=== PATIENT | male | born 1945 | race Caucasian/White ===

== ENCOUNTER 2016-09-20 11:18 | Emergency (ER) | payer BC, MEDICARE ==
--- NOTE | 2016-09-20 11:31 | EDM.PDOC ---
ED HPI GENERAL MEDICAL PROBLEM - General Chief Complaint: General Stated Complaint: AMBULANCE Time Seen by Provider: 09/20/16 11:30 Source of Information: Reports: Patient History Limitations: Reports: No limitations - History of Present Illness INITIAL COMMENTS - FREE TEXT/NARRATIVE: HISTORY AND PHYSICAL: History of present illness: [8-year-old male with embolus with a walker because of hip problems now brought in by EMS for evaluation after a fall. Patient states he was in bleeding with his walker when he lost his balance fell and hit the front of his head on the carpet he has an abrasion. Patient states his tetanus is up-to-date within 5 years. Denies loss of consciousness or neck pain. Patient has no headache currently. Is not on anticoagulants. He has a history of hypothyroidism for which he takes Synthroid and with which she is compliant. Patient denies prodromal symptomatology specifically no dizziness lightheadedness chest pain or shortness of breath. Patient did not get up and EMS was called. Patient brought in by EMS on the [facility] [place] with no c collar in place. He has no specific complaints and denies any recent illness Review of systems: As per history of present illness and below otherwise all systems reviewed and negative. Past medical history: As per history of present illness and as reviewed below otherwise noncontributory. Surgical history: As per history of present illness and as reviewed below otherwise noncontributory. Social history: No reported history of drug or alcohol abuse. Family history: As per history of present illness and as reviewed below otherwise noncontributory. Physical exam: No CT or L-spine tenderness or crepitus. Nontender stable pelvis. No rib tenderness. No right upper quadrant or left upper quadrant tenderness. HEENT: 8 cm x 5 cm abrasion to apical frontal scalp with a small skin flap and placed. normocephalic, pupils reactive, negative for conjunctival pallor or scleral icterus, mucous membranes moist, throat clear, neck supple, nontender, normal painless range of motion and no midline tenderness whatsoever. trachea midline. Lungs: Clear to auscultation, breath sounds equal bilaterally, chest nontender. Heart: S1S2, regular, negative for clicks, rubs, or JVD. Abdomen: Soft, nondistended, nontender. Negative for masses or hepatosplenomegaly. Negative for costovertebral tenderness. Pelvis: Stable nontender. Genitourinary: Deferred. Rectal: Deferred. Extremities: Atraumatic, negative for cords or calf pain. Neurovascular unremarkable. Neuro: Awake, alert, oriented. Cranial nerves II through XII unremarkable. Cerebellum unremarkable. Motor and sensory unremarkable throughout. Exam nonfocal. Diagnostics: [] Therapeutics: [Procedure debridement of skin flap on scalp wound by MORIAH Zhao] patient sitting the vitalized skin debrided with gloved hand by me. Patient tolerated well no complications. hemostatic. As the tracing ointment applied to abrasion. Impression: [] Plan: [Patient status post what sounds likely to have been a mechanical loss of balance and fall. Abrasion for have a tetanus up-to-date. Skin flap which was devitalized was debrided by me see procedure. Antibiotic ointment applied nonfocal neurologic exam well-appearing supple neck. Will check CT of the head to rule out intracranial injury specifically bleeding. EKG with normal sinus rhythm at 89 normal axis no STEMI interpreted by me. Labs and chest x-ray pending to rule out possibility of contributory etiology for fall. if Workup is unremarkable, and the default diagnosis is mechanical fall consistent with the patient's description. He agrees with outpatient followup and strict return precautions will be given hGlobin 9.3. Patient aware. CT of the head unremarkable. Chest x-ray and pelvis x-ray negative for acute process Incidental finding of bony abnormality of right pubic symphysis commented on by radiology discussed this finding with patient. He has been aware of this finding as it was defined as a bone island when imaged on CT of the abdomen and pelvis May 07, 2016. he has not had any history of bony metastases or cancer. Patient is aware to followup with his DrSade for reevaluation and to arrange surveillance imaging of this lesion to rule out lytic lesion or cancer. Definitive disposition and diagnosis as appropriate pending reevaluation and review of above. - Related Data Allergies Allergy/AdvReac Type Severity Reaction Status Date / Time No Known Allergies Allergy Verified 07/17/16 09:32 Home Meds: Home Meds Levothyroxine 75 mcg PO ACBREAKFAST 09/20/16 [History] ED ROS GENERAL - Review of Systems Review Of Systems: See Below (Per history of present illness) ED EXAM, GENERAL - Physical Exam Exam: See Below (Per history of present illness) Course - Vital Signs Last Recorded V/S: Last Vital Signs Temp 36.2 C 09/20/16 11:25 Pulse 84 09/20/16 12:58 Resp 16 09/20/16 12:58 BP 117/62 09/20/16 12:58 Pulse Ox 97 09/20/16 12:58 Orthostatic Blood Pressure [ 118/68 Standing] Orthostatic Blood Pressure [ 101/63 Sitting] Orthostatic Blood Pressure [ 109/61 Supine] - Orders/Labs/Meds Orders: Active Orders 24 hr Category Date Time Status EKG Documentation Completion [RC] STAT Care 09/20/16 11:32 Active Peripheral IV Care [RC] . DIRECTED Care 09/20/16 11:32 Active Chest 1V Frontal [CR] Stat Exams 09/20/16 11:32 Taken Head wo Cont [CT] Stat Exams 09/20/16 11:32 Taken Pelvis 1V or 2V [CR] Stat Exams 09/20/16 11:35 Taken UA W/MICROSCOPIC [URIN] Stat Lab 09/20/16 11:32 Uncollected Sodium Chloride 0.9% [Saline Flush] Med 09/20/16 11:32 Active 10 ml FLUSH ASDIRECTED PRN Sodium Chloride 0.9% [Saline Flush] Med 09/20/16 11:32 Active 10 ml FLUSH ASDIRECTED PRN Sodium Chloride 0.9% [Saline Flush] Med 09/20/16 11:32 Active 2.5 ml FLUSH ASDIRECTED PRN Sodium Chloride 0.9% [Saline Flush] Med 09/20/16 11:32 Active 2.5 ml FLUSH ASDIRECTED PRN Peripheral IV Insertion Adult [OM.PC] Stat Oth 09/20/16 11:32 Ordered Medication Orders Sodium Chloride (Saline Flush) 10 ml FLUSH ASDIRECTED PRN PRN Reason: Keep Vein Open Last Admin: 09/20/16 11:48 Dose: 10 ml Sodium Chloride (Saline Flush) 2.5 ml FLUSH ASDIRECTED PRN PRN Reason: Keep Vein Open Last Admin: 09/20/16 11:48 Dose: 2.5 ml Sodium Chloride (Saline Flush) 10 ml FLUSH ASDIRECTED PRN PRN Reason: Keep Vein Open Last Admin: 09/20/16 11:48 Dose: 10 ml Sodium Chloride (Saline Flush) 2.5 ml FLUSH ASDIRECTED PRN PRN Reason: Keep Vein Open Last Admin: 09/20/16 11:48 Dose: 2.5 ml Labs: Laboratory Tests 09/20/16 09/20/16 09/20/16 Range/Units 11:44 11:44 11:44 WBC 10.11 (4.0-11.0) K/uL RBC 3.35 L (4.50-5.90) M/uL Hgb 9.3 L (13.0-17.0) g/dL Hct 28.7 L (38.0-50.0) % MCV 85.7 (80.0-98.0) fL MCH 27.8 (27.0-32.0) pg MCHC 32.4 (31.0-37.0) g/dL RDW Std Deviation 51.4 (28.0-62.0) fl RDW Coeff of Kristy 16 H (11.0-15.0) % Plt Count 310 (150-400) K/uL MPV 8.60 (7.40-12.00) fL Neut % (Auto) 75.9 (48.0-80.0) % Lymph % (Auto) 11.2 L (16.0-40.0) % Labette % (Auto) 12.6 (0.0-15.0) % Eos % (Auto) 0.1 (0.0-7.0) % Baso % (Auto) 0.2 (0.0-1.5) % Neut # (Auto) 7.7 H (1.4-5.7) K/uL Lymph # (Auto) 1.1 (0.6-2.4) K/uL Labette # (Auto) 1.3 H (0.0-0.8) K/uL Eos # (Auto) 0.0 (0.0-0.7) K/uL Baso # (Auto) 0.0 (0.0-0.1) K/uL Nucleated RBC % 0.0 /100WBC Nucleated RBCs # 0 K/uL Sodium 137 (136-146) mmol/L Potassium 4.3 (3.5-5.1) mmol/L Chloride 106 (98-110) mmol/L Carbon Dioxide 22 (21-31) mmol/L BUN 20 (6.0-23.0) mg/dL Creatinine 0.9 (0.6-1.5) mg/dL Est Cr Clr Drug Dosing 76.37 mL/min Estimated GFR (MDRD) > 60.0 ml/min Glucose 91 (60-110) mg/dL Calcium 8.3 L (8.8-10.8) mg/dL Total Bilirubin 0.6 (0.1-1.5) mg/dL AST 23 (5-40) IU/L ALT 18 (8-54) IU/L Alkaline Phosphatase 95 (40-150) Troponin I < 0.10 (0.0-0.29) NG/ML Total Protein 7.0 (6.0-8.0) g/dL Albumin 2.7 L (3.4-4.8) g/dL Globulin 4.3 H (2.0-3.5) g/dL Albumin/Globulin Ratio 0.6 L (1.3-2.8) Meds: Medications Generic Name Dose Route Start Last Admin Trade Name Freq PRN Reason Stop Dose Admin Sodium Chloride 10 ml 09/20/16 11:32 09/20/16 11:48 Saline Flush FLUSH 10 ml ASDIRECTED PRN Administration Keep Vein Open Sodium Chloride 2.5 ml 09/20/16 11:32 09/20/16 11:48 Saline Flush FLUSH 2.5 ml ASDIRECTED PRN Administration Keep Vein Open Sodium Chloride 10 ml 09/20/16 11:32 09/20/16 11:48 Saline Flush FLUSH 10 ml ASDIRECTED PRN Administration Keep Vein Open Sodium Chloride 2.5 ml 09/20/16 11:32 09/20/16 11:48 Saline Flush FLUSH 2.5 ml ASDIRECTED PRN Administration Keep Vein Open Discontinued Medications Generic Name Dose Route Start Last Admin Trade Name Freq PRN Reason Stop Dose Admin Bacitracin 1 dose 09/20/16 11:47 09/20/16 11:56 Bacitracin Oint 1 Gm TOP 09/20/16 11:48 1 dose ONETIME ONE Administration Sodium Chloride 1,000 mls @ 999 mls/hr 09/20/16 11:32 09/20/16 11:48 Normal Saline IV 09/20/16 12:32 999 mls/hr .Bolus ONE Administration Departure - Departure Time of Disposition: 14:03 Disposition: Home, Self-Care 01 Condition: good Clinical Impression: Scalp abrasion, Minor head injury without loss of consciousness, Anemia, Radiodense bone lesion present on x-ray Forms: ED Department Discharge Additional Instructions: You have suffered a minor head injury today when you fell and hit your head on the carpeted floor. Verify with your DrSade that your tetanus is up-to-date within 5 years. He may apply antibiotic ointment to your for head abrasion to keep it moist for comfort. Your hemoglobin is mildly low at 9.3, and the Remainder of your workup showed no contributory cause for your fall. Followup with your DrSade tomorrow for reevaluation and to discuss the bony abnormality in your right pubic symphysis which was previously imaged by CAT scan on May 07, 2060. Her concern about this bone lesion with the the possibility of a lytic lesion which could breakdown the bone or that it could be an evolving cancer. Discussed this finding with your primary care doctor who can arrange repeat imaging for surveillance of the lesion. Return immediately for new symptoms or concerns. - My Orders Last 24 Hours: My Active Orders 09/20/16 11:32 EKG Documentation Completion [RC] STAT Peripheral IV Care [RC] . DIRECTED Chest 1V Frontal [CR] Stat Head wo Cont [CT] Stat UA W/MICROSCOPIC [URIN] Stat Sodium Chloride 0.9% [Saline Flush] 10 ml FLUSH ASDIRECTED PRN Sodium Chloride 0.9% [Saline Flush] 10 ml FLUSH ASDIRECTED PRN Sodium Chloride 0.9% [Saline Flush] 2.5 ml FLUSH ASDIRECTED PRN Sodium Chloride 0.9% [Saline Flush] 2.5 ml FLUSH ASDIRECTED PRN Peripheral IV Insertion Adult [OM.PC] Stat 09/20/16 11:35 Pelvis 1V or 2V [CR] Stat - Assessment/Plan Last 24 Hours: My Active Orders 09/20/16 11:32 EKG Documentation Completion [RC] STAT Peripheral IV Care [RC] . DIRECTED Chest 1V Frontal [CR] Stat Head wo Cont [CT] Stat UA W/MICROSCOPIC [URIN] Stat Sodium Chloride 0.9% [Saline Flush] 10 ml FLUSH ASDIRECTED PRN Sodium Chloride 0.9% [Saline Flush] 10 ml FLUSH ASDIRECTED PRN Sodium Chloride 0.9% [Saline Flush] 2.5 ml FLUSH ASDIRECTED PRN Sodium Chloride 0.9% [Saline Flush] 2.5 ml FLUSH ASDIRECTED PRN Peripheral IV Insertion Adult [OM.PC] Stat 09/20/16 11:35 Pelvis 1V or 2V [CR] Stat
[2016-09-20] MEDS ORDERED: Sodium Chloride 0.9% 2.5 ML Syringe FLUSH PRN ×2 (11:32)
[2016-09-20] MEDS ORDERED: Sodium Chloride 0.9% 1,000 ML IV ONE (11:32)
[2016-09-20] MEDS ORDERED: Sodium Chloride 0.9% 10 ML Syringe FLUSH PRN ×2 (11:32)
[2016-09-20] MEDS ORDERED: Bacitracin Oint 1 GM U/D Packet TOP ONE (11:47)
[2016-09-20 12:17] LABS: CHLORIDE,CL 106 mmol/L (98-110); SODIUM,NA 137 mmol/L (136-146)
[2016-09-20 15:26] VITALS: BP 126/65
--- NOTE | 2016-09-21 18:42 | CT ---
EXAM DATE: 09/20/16 PATIENT'S AGE: 71 Patient: VICKI KEYES Facility: [place], [place] Site . Site : 1945 Study: CT Head [id number] 12:07:52 PM Ordering Physician: Everton Cummins Final Report: INDICATION : Trauma. TECHNIQUE : Noncontrast CT scan of brain. Please note that all CT scans at this facility use dose modulation, iterative reconstruction and/or weight-based dosing when appropriate to reduce radiation dose to as low as reasonably achievable(ALARA). FINDINGS : Mildly prominent ventricles and sulci. No visualized intracranial intra or extra-axial hemorrhage. No midline shift or intracranial mass. Calvarium is intact. Punctate area of radiodensity, foreign body or calcification superior to the right orbit. Bone window image 25. Atherosclerotic vascular calcifications of the internal carotid arteries. Small mucous retention cyst in the left sphenoid sinus. IMPRESSION : No visualized acute intracranial radiographic abnormality. Mildly prominent sulci suggesting volume loss. Dictated by Hernesto Min MD @ Sep 20 2016 12:22PM (Electronic Signature) Report Signed by Proxy and Original Signed Document filed in the Medical Record. [facility]
--- NOTE | 2016-09-21 18:43 | CR ---
EXAM DATE: 09/20/16 PATIENT'S AGE: 71 Patient: VICKI KEYES Facility: [place], [place] Site . Site : 1945 Study: XRay Chest [id number]/2/[id number] 12:13:50 PM Ordering Physician: Everton Cummins Final Report: CHEST 1 VIEW AP INDICATION: Fall. IMPRESSION: Normal heart size and vascular pattern. Lungs are clear of focal opacities. No pneumothorax or pleural abnormality. Dictated by Hernesto Min MD @ Sep 20 2016 12:16PM (Electronic Signature) Report Signed by Proxy and Original Signed Document filed in the Medical Record. [facility]
--- NOTE | 2016-09-21 18:46 | CR ---
EXAM DATE: 09/20/16 PATIENT'S AGE: 71 Patient: VICKI KEYES Facility: [place], [place] Site . Site : 1945 Study: XRay Pelvis [id number]/2/2017 12:19:57 PM Ordering Physician: Everton Cummins Final Report: Pelvis and bilateral hips. 2 VIEWS INDICATION: Injury. IMPRESSION: No visualized fracture. Alignments anatomic. Symmetric narrowing of both hip joints. Asymmetric sclerosis in the right symphysis. Uncertain significance. Correlate with any history of previous malignancy such as prostate carcinoma to exclude blastic metastasis. Vascular calcifications. No fractures. Dictated by Hernesto Min MD @ Sep 20 2016 12:32PM (Electronic Signature) Report Signed by Proxy and Original Signed Document filed in the Medical Record. [facility]
--- NOTE | 2016-09-21 18:47 | CR ---
EXAM DATE: 09/20/16 PATIENT'S AGE: 71 Patient: VICKI KEYES Facility: [place], [place] Site . Site : 1945 Study: XRay Extremity Left ankle [id number] 2:41:32 PM Ordering Physician: Everton Cummins Final Report: Left ankle 2 VIEWS INDICATION: Pain. No comparisons available. IMPRESSION: Alignments anatomic. Previous hardware fixation distal fibular fracture. Plate and screws are intact. No additional acute fractures. Extensive degeneration narrowing and hypertrophic changes at the tibiotalar joint. Medial swelling. Dictated by Hernesto Min MD @ Sep 20 2016 3:10PM (Electronic Signature) Report Signed by Proxy and Original Signed Document filed in the Medical Record. [facility]
== END 2016-09-20 16:11 | disposition home or self-care (01) ==
LOC: MW.ED 11:18
DX: S00.01XA Abrasion of scalp, initial encounter (principal); S09.90XA Unspecified injury of head, initial encounter; D64.9 Anemia, unspecified; M89.9 Disorder of bone, unspecified; W19.XXXA Unspecified fall, initial encounter
CPT/HCPCS: 70450; 71010; 72170; 73600; 80053; 81001; 84484; 85025; 93005; 96360; 99285; J7040; 99284

== ENCOUNTER → 2016-09-28 | Outpatient (CLI) | payer BC, MEDICARE ==
[2016-09-28 12:53] LABS: CHLORIDE,CL 104 mmol/L (98-110); SODIUM,NA 137 mmol/L (136-146)
== END ==
LOC: MW.CHGS 12:01
PROVIDERS: ATTEND Surgery
DX: D64.9 Anemia, unspecified (principal)
CPT/HCPCS: 36415; 80053; 84443; 85025

== ENCOUNTER → 2016-10-07 | Outpatient (CLI) | payer BC, MEDICARE | END | disposition home or self-care (01) | LOC: MW.CHGS 11:29 | PROVIDERS: ATTEND Surgery | DX: R55 Syncope and collapse (principal) | CPT/HCPCS: 36415; 85610 ==

== ENCOUNTER 2016-10-13 08:20 | Inpatient (IN) | payer BC, MEDICARE ==
[~2016-10-13 08:20] MED LIST: Lactated Ringers 1,000 ML IV SCH; Lidocaine 2% 5 ML SDV ONE; Propofol 200 MG/20 ML SDV ONE; fentaNYL 100 MCG/2 ML SDV ONE
--- NOTE | 2016-10-13 08:53 | PCM.PREANE ---
Preanesthetic Assessment - Anesthesia/Transfusion/Family Hx Anesthesia History: Prior Anesthesia Without Reaction Family History of Anesthesia Reaction: No Transfusion History: No Prior Transfusion(s) - Review of Systems General: No Symptoms Pulmonary: No Symptoms Cardiovascular: No Symptoms Gastrointestinal: No symptoms Neurological: No Symptoms Other: Reports: None - Physical Assessment O2 Sat by Pulse Oximetry: 94 Respiratory Rate: 18 Vital Signs: Last Vital Signs Temp 37.2 C 10/13/16 08:41 Pulse 110 H 10/13/16 08:41 Resp 18 10/13/16 08:41 BP 120/65 10/13/16 08:41 Pulse Ox 94 L 10/13/16 08:41 Height: 1.75 m Weight: 77.111 kg ASA Class: 3 Mental Status: Alert & Oriented x3 Airway Class: Mallampati = 2 Dentition: Reports: Normal Dentition Thyro-Mental Finger Breadths: 3 Mouth Opening Finger Breadths: 2 ROM/Head Extension: Limited/Partial Lungs: Clear to auscultation, Normal respiratory effort Cardiovascular: Regular Rate, Regular Rhythm - Allergies Allergies/Adverse Reactions: Allergies Allergy/AdvReac Type Severity Reaction Status Date / Time Penicillins Allergy Swelling Verified 10/09/16 10:54 - Blood Blood Available: No - Anesthesia Plan Pre-Op Medication Ordered: None - Acknowledgements Anesthesia Type Planned: MAC Pt an Appropriate Candidate for the Planned Anesthesia: Yes Alternatives and Risks of Anesthesia Discussed w Pt/Guardian: Yes Pt/Guardian Understands and Agrees with Anesthesia Plan: Yes PreAnesthesia Questionnaire HEENT History: Reports: Cataract, Hard of hearing Other HEENT History: wears glasses, has hearing aides but does not wear them Cardiovascular History: Reports: Other (see below) (recent ankle swelling) Respiratory History: Reports: Sleep apnea (wears CPAP mask at night) Gastrointestinal History: Reports: None Genitourinary History: Reports: Renal calculus Musculoskeletal History: Reports: Fracture, Osteoarthritis Other Musculoskeletal History: left ankle and right wrist Neurological History: Reports: None Psychiatric History: Reports: Depression Other Psychiatric History: states is depressed over chronic leg pain x2 months Endocrine/Metabolic History: Reports: Hypothyroidism Hematologic History: Reports: Anemia Immunologic History: Reports: None Oncologic (Cancer) History: Reports: None Dermatologic History: Reports: None - Infectious Disease History Infectious Disease History: Reports: None - Past Surgical History Head Surgeries/Procedures: Reports: None HEENT Surgical History: Reports: Cataract surgery, Tonsillectomy Cardiovascular Surgical History: Reports: None Respiratory Surgical History: Reports: None GI Surgical History: Reports: None Male Surgical History: Reports: Lithotripsy (ESWL) Endocrine Surgical History: Reports: None Neurological Surgical History: Reports: None Musculoskeletal Surgical History: Reports: ORIF Other Musculoskeletal Surgeries/Procedures:: left ankle (has plate and screws) Oncologic Surgical History: Reports: None - SUBSTANCE USE Smoking Status *Q: Current Every Day Smoker (<1 ppd) Tobacco Use Within Last Twelve Months: Cigarettes Second Hand Smoke Exposure: No Recreational Drug Use History: No - HOME MEDS Home Medications: Home Meds Hydrocodone/Acetaminophen [Hydrocodon-Acetaminophen 5-325] 1 tab PO QID PRN [History] Levothyroxine Sodium [Synthroid] 150 mcg PO DAILY 10/09/16 [History] - CURRENT (IN HOUSE) MEDS Current Meds: Current Medications Lactated Ringer's (Ringers, Lactated) 1,000 mls @ 125 mls/hr IV ASDIRECTED ANJALI Last Admin: 10/13/16 08:40 Dose: 125 mls/hr Discontinued Medications Fentanyl (Sublimaze) Confirm Administered Dose 100 mcg .ROUTE .STK-MED ONE Stop: 10/13/16 07:18 Lidocaine (Xylocaine-Mpf 2%) Confirm Administered Dose 5 ml .ROUTE .STK-MED ONE Stop: 10/13/16 07:18 Propofol (Diprivan 20 Ml) Confirm Administered Dose 400 mg .ROUTE .STK-MED ONE Stop: 10/13/16 07:18
--- NOTE | 2016-10-13 10:17 | PCM.SN ---
- Free Text/Narrative Note: pt with severe B lower extremity swelling and pitting edema, and possible in and out of atrial fibulation; colonoscopy procedure cancelled. pt would benefit from a visit to his medical provider, and likely a safety advisor visit before elective colonoscopy
[2016-10-13] MEDS ORDERED: Furosemide 40 MG/4 ML VIAL IVPUSH SCH (13:30)
--- NOTE | 2016-10-13 15:25 | PCM.SN ---
- Free Text/Narrative Note: Patient showed up today for planned colonoscopy. Presently he complains of 2 months of leg swelling and pain accompanied with secondary depression and significant fatigue. A month ago he had episode of sincopy falling and injuring himself what brought him to ER . He also had h/o hypothyroidism. Presented with anemia HG 9.3 of unkown origin and tachicardia. EKG revealed atrial tachicardia at 129 bpm. Bnp was 497. Na 132 and hemoglobin dropped to 8.5. On physical exam he has profoud pitting edema up to his groins.We are of opinion that he is in developing CHF and that needs to be seen today by form setter in order to be admitted into hospital for immediate treatment. Dr Simms is contacted and is coming to examine the patient.
--- NOTE | 2016-10-13 15:36 | CONS ---
DATE OF CONSULTATION: DATE OF : 1945 PRIMARY CARE PHYSICIAN: Júnior Contreras MD REASON FOR CONSULTATION: Tachycardia and concern of heart failure. HISTORY OF PRESENT ILLNESS: This is a 71-year-old male with history of the kidney stone as well as a former smoker, history of SARA, hypothyroidism, presented to the hospital at this time for day surgery for a colonoscopy. He was seen by Dr. Delacruz his primary care doctor and he has told Dr. Delacruz that he is still weak for quite some time. It was almost and one and half months and he was told that his anemia has been worsen and he would need a colonoscopy. He had a colonoscopy done in 2012 at that time for the rectal bleed and was found to have a diverticulosis. No polys were removed at that time, and then today prior to colonoscopy, he was found to have a tachycardia with a heart rate of 110 to 120. EKG show possible atrial tachycardia and he also mentioned that he has been swollen for one and half weeks, but no increasing shortness of breath. However, his tightness and weakness remained the same. He denied a history of heart attack, heart stent, heart failure. Never had a stress test in the past. He also denied history of hypertension, hyperlipidemia, and also diabetes. He also knows that he has been swollen for almost one and half week, but he denied history of orthopnea or PND. He was here in the emergency room in September 20 at that time, he is here because of collapsing. He stated that like he got up in the morning when out to exist nine go back home, exercise to do some walking, go back home tried to go down to the basement; however, when he was going to the stairs to the basement, he was falling. He remembers seeing himself going down to the floor, but he was not sure that he was passing out or not. No chest pain. No warning symptoms. No dizziness and he could not get himself up because he has no strength and he called his sister and called 911 later on and he was coming to the emergency room. He did not get kept overnight. FAMILY HISTORY: Mother had a history of glaucoma but no CAD, no heart failure in his family history. SOCIAL HISTORY: He is a current smoker. He does not drink. He is unmarried and has no children. No drugs. MEDICATION: He is currently only taking levothyroxine 137 mcg daily. PHYSICAL EXAMINATION: VITAL SIGNS: Blood pressure 120/95, heart rate of 110 and 120, O2 saturation 94, respiration 18, temperature 37.0. HEENT: Mild pale. No jaundice. JVD is positive. HEART: Tachycardia. Regular rate and rhythm. No murmur. LUNGS: Bilateral crackles with minimal expiratory wheezing. ABDOMEN: Soft, nontender. Bowel sounds are present. No hepatosplenomegaly. No rebound tenderness. EXTREMITIES: Legs, no edema. RADIOLOGIC INVESTIGATION: BNP was 497. EKG September 20, 2016 did show a sinus rhythm, heart rate of 89, KS interval 171, QRS duration 83, QTc interval 467. An EKG on October 13, 2016 show atrial tachycardia with a heart rate of 129, KS interval 134, QRS duration 89. ASSESSMENT AND PLAN: This is a 71-year-old male, former smoker, presented with recent anemia with concern of GI bleeding. He presents to the hospital at this time due to peripheral edema as well as atrial tachycardia and congestive heart failure. I believe that I would recommend to keep him in the hospital and I would also treat him with IV diuretics and I would also start him on a medication and that will control his heart rate, but I would wait until tomorrow, and I will also check his echocardiogram cycle, cardiac enzymes, and for his heart failure treatment, he would need diuretics and also the medication regimen depends on his LVEF and he need to be limited for salt intake less than 2 g. He has to be weighed daily and has to be watched vital signs. He need to be on a telemetry bed. STEFFI DAVILA /[id number]
[2016-10-13] MEDS ORDERED: Pantoprazole 80 MG in Sodium Chloride 0.9% 20 ML IV ONE (16:04)
--- NOTE | 2016-10-13 16:11 | PCM.HP ---
H&P History of Present Illness - General Date of Service: 10/13/16 Admit Problem/Dx: Admission Diagnosis/Problem Admission Diagnosis/Problem Tachycardia Source of Information: Patient History Limitations: Reports: No limitations - History of Present Illness Initial Comments - Free Text/Narative: This 71 year old male with pmh of hypothyroidism and recent anemia presented today for colonoscopy with Dr. Price. Prior to procedure EKG noted possible atrial tachycardia. The patient expressed concerns regarding worsening bilateral leg edema. He reports he has had lower back and leg pain which is not getting better other the last couple months. He is voiding ok, reports he was told the back pain is from constipation. He has been taking a laxative daily and having daily bowel movements, but pain is getting worse. He denies N/V abdominal pain or urinary symptoms. He denies dyspnea, chest pain, cough or palpitations. His legs have progressively become more and more swollen and are painful from the edema. He reports he uses [place] for pain, does not take any NSAIDs and does not use alcohol and has not been taking iron for anemia. He noted this morning he had a "plenty black" stool. WBC 10,370, Hgb 8.5 Hct 27.1, BUN 12 Cr 0.7 Na 132. Will obtain ECHO and CXR. Will also obtain hemoccult. He will be admitted due to tachycardia, possible CHF , and anemia. Dr Thrasher consulted regarding CHF and tachycardia. - Related Data Allergies/Adverse Reactions: Allergies Allergy/AdvReac Type Severity Reaction Status Date / Time Penicillins Allergy Swelling Verified 10/09/16 10:54 Home Medications: Home Meds Hydrocodone/Acetaminophen [Hydrocodon-Acetaminophen 5-325] 1 tab PO QID PRN [History] Levothyroxine Sodium [Synthroid] 150 mcg PO DAILY 10/09/16 [History] Acetaminophen [Tylenol] 650 mg PO DAILY PRN 10/13/16 [History] Past Medical History HEENT History: Reports: Cataract, Hard of hearing Other HEENT History: wears glasses, has hearing aides but does not wear them Cardiovascular History: Reports: Other (see below) Respiratory History: Reports: Sleep apnea (uses CPAP at [facility]) Gastrointestinal History: Reports: None Genitourinary History: Reports: Renal calculus Musculoskeletal History: Reports: Fracture, Osteoarthritis Other Musculoskeletal History: left ankle and right wrist Neurological History: Reports: None Psychiatric History: Reports: Depression Other Psychiatric History: states is depressed over chronic leg pain x2 months Endocrine/Metabolic History: Reports: Hypothyroidism Hematologic History: Reports: Anemia Immunologic History: Reports: None Oncologic (Cancer) History: Reports: None Dermatologic History: Reports: None - Infectious Disease History Infectious Disease History: Reports: None - Past Surgical History Head Surgeries/Procedures: Reports: None HEENT Surgical History: Reports: Cataract surgery, Tonsillectomy Cardiovascular Surgical History: Reports: None Respiratory Surgical History: Reports: None GI Surgical History: Reports: None Male Surgical History: Reports: Lithotripsy ([facility]) Endocrine Surgical History: Reports: None Neurological Surgical History: Reports: None Musculoskeletal Surgical History: Reports: ORIF Other Musculoskeletal Surgeries/Procedures:: left ankle (has plate and screws) Oncologic Surgical History: Reports: None Social & Family History - Family History Family Medical History: Noncontributory - Tobacco Use Smoking Status *Q: Current Every Day Smoker Years of Tobacco use: 50 Packs/Tins Daily: 0.5 Second Hand Smoke Exposure: No - Caffeine Use Caffeine Use: Reports: None - Recreational Drug Use Recreational Drug Use: No Drug Use in Last 12 Months: No H&P Review of Systems - Review of Systems: Review Of Systems: See Below General: Denies: fever, chills, malaise, weakness HEENT: Reports: no symptoms. Denies: ear pain, sinus congestion, sore throat, visual changes Pulmonary: Reports: No Symptoms. Denies: Shortness of Breath, Wheezing, Cough, Sputum Cardiovascular: Reports: edema (bilateral lower legs). Denies: chest pain, palpitations Gastrointestinal: Reports: Black stool, Constipation, Diarrhea. Denies: Abdominal pain, Bloody stool, Distension, Nausea, Vomiting Genitourinary: Reports: no symptoms. Denies: dysuria, frequency, burning Musculoskeletal: Reports: no symptoms Skin: Reports: no symptoms Psychiatric: Reports: no symptoms Neurological: Denies: Confusion, Headache, Numbness, Paresthesia Hematologic/Lymphatic: Reports: no symptoms Immunologic: Reports: no symptoms Exam - Exam Exam: See Below - Vital Signs Vital Signs: Last Vital Signs Temp 98.6 F 10/13/16 15:16 Pulse 85 10/13/16 15:16 Resp 16 10/13/16 15:16 BP 120/57 L 10/13/16 15:16 Pulse Ox 91 L 10/13/16 15:16 Weight: 77.111 kg - Exam General: alert, oriented, cooperative HEENT: Conjunctiva clear, Nares patent, Posterior pharynx clear Neck: supple, trachea midline, JVD Lungs: Clear to auscultation, Normal respiratory effort Cardiovascular: regular rate, regular rhythm, normal S1, normal S2, irregular rhythm. No: systolic murmur Abdomen: normal bowel sounds, soft. No: organomegaly, distention, guarding, rebound, tenderness Rectal (Males) Exam: Normal exam, Black stool. No: Hemorrhoids Back Exam: normal inspection, full range of motion, NT Extremities: normal inspection, normal pulses, edema (+ 2 pitting edema bilateral lower ankles and lower legs. does not extend beyond thighs) Skin: warm, dry Neuro Extensive - Mental Status: alert, oriented x3, normal mood/affect Neuro Extensive - Motor, Sensory, Reflexes: CN II-XII intact, normal gait, normal reflexes Psychiatric: alert, normal affect, normal mood - Patient Data Lab Results last 24 hrs: Laboratory Results - last 24 hr 10/13/16 10/13/16 10/13/16 Range/Units 10:55 14:18 14:18 WBC 10.37 (4.0-11.0) K/uL RBC 3.20 L (4.50-5.90) M/uL Hgb 8.5 L (13.0-17.0) g/dL Hct 27.1 L (38.0-50.0) % MCV 84.7 (80.0-98.0) fL MCH 26.6 L (27.0-32.0) pg MCHC 31.4 (31.0-37.0) g/dL RDW Std Deviation 53.1 (28.0-62.0) fl RDW Coeff of Kristy 17 H (11.0-15.0) % Plt Count 357 (150-400) K/uL MPV 8.90 (7.40-12.00) fL Neut % (Auto) 76.2 (48.0-80.0) % Lymph % (Auto) 13.2 L (16.0-40.0) % Baker % (Auto) 10.2 (0.0-15.0) % Eos % (Auto) 0.2 (0.0-7.0) % Baso % (Auto) 0.2 (0.0-1.5) % Neut # (Auto) 7.9 H (1.4-5.7) K/uL Lymph # (Auto) 1.4 (0.6-2.4) K/uL Baker # (Auto) 1.1 H (0.0-0.8) K/uL Eos # (Auto) 0.0 (0.0-0.7) K/uL Baso # (Auto) 0.0 (0.0-0.1) K/uL Nucleated RBC % 0.0 /100WBC Nucleated RBCs # 0 K/uL Sodium 132 L (136-146) mmol/L Potassium 3.8 (3.5-5.1) mmol/L Chloride 98 (98-110) mmol/L Carbon Dioxide 25 (21-31) mmol/L BUN 12 (6.0-23.0) mg/dL Creatinine 0.7 (0.6-1.5) mg/dL Est Cr Clr Drug Dosing 98.19 mL/min Estimated GFR (MDRD) > 60.0 ml/min Glucose 104 (60-110) mg/dL Calcium 8.1 L (8.8-10.8) mg/dL Troponin I (0.0-0.29) NG/ML B-Natriuretic Peptide 497 H (<100) PG/ML 10/13/16 Range/Units 14:18 WBC (4.0-11.0) K/uL RBC (4.50-5.90) M/uL Hgb (13.0-17.0) g/dL Hct (38.0-50.0) % MCV (80.0-98.0) fL MCH (27.0-32.0) pg MCHC (31.0-37.0) g/dL RDW Std Deviation (28.0-62.0) fl RDW Coeff of Kristy (11.0-15.0) % Plt Count (150-400) K/uL MPV (7.40-12.00) fL Neut % (Auto) (48.0-80.0) % Lymph % (Auto) (16.0-40.0) % Baker % (Auto) (0.0-15.0) % Eos % (Auto) (0.0-7.0) % Baso % (Auto) (0.0-1.5) % Neut # (Auto) (1.4-5.7) K/uL Lymph # (Auto) (0.6-2.4) K/uL Baker # (Auto) (0.0-0.8) K/uL Eos # (Auto) (0.0-0.7) K/uL Baso # (Auto) (0.0-0.1) K/uL Nucleated RBC % /100WBC Nucleated RBCs # K/uL Sodium (136-146) mmol/L Potassium (3.5-5.1) mmol/L Chloride (98-110) mmol/L Carbon Dioxide (21-31) mmol/L BUN (6.0-23.0) mg/dL Creatinine (0.6-1.5) mg/dL Est Cr Clr Drug Dosing mL/min Estimated GFR (MDRD) ml/min Glucose (60-110) mg/dL Calcium (8.8-10.8) mg/dL Troponin I < 0.10 (0.0-0.29) NG/ML B-Natriuretic Peptide (<100) PG/ML Result Diagrams: 10/13/16 14:18 10/13/16 14:18 *Q Meaningful Use (ADM) - VTE *Q VTE Criteria *Q: VTE Pharmacological Contraindications *Q: Risk of Bleeding - Stroke *Q Stroke Criteria *Q: - AMI *Q AMI Criteria *Q: - Problem List (1) Bilateral lower extremity edema SNOMED Code(s): 601227248 ICD Code: R60.0 - LOCALIZED EDEMA Status: Acute Current Visit: Yes (2) Tachycardia SNOMED Code(s): 0086912 ICD Code: R00.0 - TACHYCARDIA, UNSPECIFIED Status: Acute Current Visit: Yes (3) Hypothyroidism SNOMED Code(s): 90710692 ICD Code: E03.9 - HYPOTHYROIDISM, UNSPECIFIED Status: Chronic Current Visit: Yes Qualifiers: Hypothyroidism type: unspecified Qualified Code(s): E03.9 - Hypothyroidism , unspecified (4) Anemia SNOMED Code(s): 612584524 ICD Code: D64.9 - ANEMIA, UNSPECIFIED Status: Acute Current Visit: No Qualifiers: Anemia type: unspecified type Qualified Code(s): D64.9 - Anemia, unspecified Problem List Initiated/Reviewed/Updated: Yes Orders Last 24hrs: Active Orders 24 hr Category Date Time Status Patient Status [ADT] Routine ADT 10/13/16 15:27 Active Daily Weight [Height and Weight] [RC] DAILY Care 10/13/16 15:29 Active EKG 12 Lead [EKG Documentation Completion] [RC] ROUTINE Care 10/13/16 10:04 Active Hemoccult [Fecal Occult Blood Collection] [RC] Care 10/13/16 15:36 Ordered ASDIRECTED Intake and Output Strict [RC] ASDIRECTED Care 10/13/16 15:29 Active Notify Provider Consults [RC] ASDIRECTED Care 10/13/16 15:17 Active Notify Provider Consults [RC] ASDIRECTED Care 10/13/16 15:39 Ordered Telemetry Monitoring [Cardiac Monitoring] [RC] . Care 10/13/16 15:38 Ordered DIRECTED Consult to Physician [CONS] Routine Cons 10/13/16 15:16 Active Consult to Physician [CONS] Routine Cons 10/13/16 15:38 Ordered Full Liquid Diet [DIET] Diet 10/13/16 Dinner Active Echo Comp wo Cont [US] Routine Exams 10/13/16 15:42 Ordered CMP [COMPREHENSIVE METABOLIC PN,CMP] [CHEM] Routine Lab 10/13/16 15:26 Ordered Hemoccult [OCCULT BLOOD DIAGNOSTIC] [OP] Routine Lab 10/13/16 15:36 Uncollected MAGNESIUM [CHEM] Routine Lab 10/13/16 15:26 Ordered Acetaminophen/HYDROcodone [[place] 325-5 MG] Med 10/13/16 15:53 Ordered 1 tab PO QID PRN Furosemide [Lasix] Med 10/13/16 13:30 Active 40 mg IVPUSH .ONETIME Lactated Ringers [Ringers, Lactated] 1,000 ml Med 10/13/16 05:00 Active IV ASDIRECTED Levothyroxine Med 10/14/16 09:00 Ordered 150 mcg PO DAILY Pantoprazole [ProTONIX IV] 80 mg Med 10/13/16 16:15 Ordered Sodium Chloride 0.9% [Normal Saline] 100 ml IV Q10H Pantoprazole [ProTONIX IV] 80 mg Med 10/13/16 16:04 Ordered Sodium Chloride 0.9% [Normal Saline] 20 ml IV ONETIME Medication Orders Hydrocodone Bitart/Acetaminophen ([place] 325-5 Mg) 1 tab PO QID PRN PRN Reason: Pain Furosemide (Lasix) 40 mg IVPUSH .ONETIME ANJALI Lactated Ringer's (Ringers, Lactated) 1,000 mls @ 125 mls/hr IV ASDIRECTED ANJALI Last Admin: 10/13/16 08:40 Dose: 125 mls/hr Pantoprazole Sodium 80 mg/ (Sodium Chloride) 100 mls @ 10 mls/hr IV Q10H ANJALI Pantoprazole Sodium 80 mg/ (Sodium Chloride) 20 mls @ 80 mls/hr IV ONETIME ONE Stop: 10/13/16 16:18 Levothyroxine Sodium (Levothyroxine) 150 mcg PO DAILY ANJALI Assessment/Plan Comment:: This 71 year old male admitted with bilateral lower leg edema, anemia and tachycardia 1. Bilateral lower leg edema: Given Lasix 40 mg IV this afternoon, has had 1, 000 ml out since. Will add another dose this evening and monitor output cosely. Daily weights. Will obtain ECHO. No hx of CHF. Monitor on telemetry. 2. Tachycardia: No longer tachycardic. Monitor on telemetry, Obtain serial troponins. Hold on starting medications until diuresed more per Dr Edwards. 3. Anemia: normochromic anemia. reports having black stool this am. Will start Protonix gtt, obtain hemoccult. Will obtain iron studies and peripheral smear. 4. Hypothyroid: Will check TSH. if ok will resume Levothyroxine 5. Hyponatremia: Maybe secondary to potential CHF, monitor. VTE: SCDs only due to GI bleed Dispo: 2-3 days pending improvement
[2016-10-13] MEDS: Acetaminophen/HYDROcodone 325-5 MG Tab PO PRN (16:16)
[2016-10-13 16:48] LABS: CHLORIDE,CL 98 mmol/L (98-110); SODIUM,NA 132 mmol/L (136-146)
[2016-10-13] MEDS: Pantoprazole 80 MG in Sodium Chloride 0.9% 100 ML IV SCH (17:00)
[2016-10-13] MEDS ORDERED: Magnesium Sulfate/Water 2 GM in Premix Bag 1 BAG IV ONE (18:26)
[2016-10-13] MEDS ORDERED: Furosemide 40 MG/4 ML VIAL IVPUSH ONE (20:00)
[2016-10-14] MEDS: Acetaminophen 325 MG Tab PO PRN ×2 (00:12→12:32)
[2016-10-14] MEDS: Pantoprazole 80 MG in Sodium Chloride 0.9% 100 ML IV SCH ×3 (03:37→23:37)
[2016-10-14 05:43] LABS: CHLORIDE,CL 96 mmol/L (98-110); SODIUM,NA 131 mmol/L (136-146)
[2016-10-14] MEDS: Levothyroxine 150 MCG Tab PO SCH (06:57)
[2016-10-14] MEDS ORDERED: Magnesium Sulfate/Water 2 GM in Premix Bag 1 BAG IV ONE (07:49)
[2016-10-14] MEDS ORDERED: Azithromycin 250 MG Tab PO ONE (07:56)
[2016-10-14] MEDS ORDERED: Potassium Chloride 20 MEQ Tab.ER PO SCH (08:00)
--- NOTE | 2016-10-14 08:07 | PCM.PN ---
- General Info Date of Service: 10/14/16 Admission Dx/Problem (Free Text): Admission Diagnosis/Problem Admission Diagnosis/Problem Tachycardia Subjective Update: Reports he is doing well. No chest pain or SOB. Having continued low back/ sacral pain. Lower leg edema has improved. No palpitations. No further black stools. Functional Status: Reports: pain controlled, tolerating diet, ambulating, urinating - Review of Systems General: Reports: No Symptoms. Denies: Fever, Weakness HEENT: Reports: no symptoms. Denies: ear pain, sore throat, visual changes Pulmonary: Denies: shortness of breath, cough, sputum Cardiovascular: Reports: Dyspnea on Exertion, Edema. Denies: Chest Pain, Orthopnea Gastrointestinal: Reports: No symptoms. Denies: Abdominal pain, Nausea, Vomiting Genitourinary: Reports: no symptoms. Denies: dysuria, frequency, burning Musculoskeletal: Reports: back pain (low back pain) Skin: Reports: no symptoms Neurological: Reports: No Symptoms Psychiatric: Reports: no symptoms - Patient Data Vitals - most recent: Last Vital Signs Temp 98.6 F 10/14/16 08:01 Pulse 97 10/14/16 08:01 Resp 17 10/14/16 08:01 BP 110/55 L 10/14/16 08:01 Pulse Ox 96 10/14/16 08:01 Weight - most recent: 77.111 kg I&O - last 24 hours: Intake & Output 10/13/16 10/14/16 10/14/16 22:59 06:59 14:59 Intake Total 500 1250 Output Total 1350 3175 Balance -850 -1925 Lab Results last 24 hrs: Laboratory Results - last 24 hr 10/13/16 10/13/16 10/13/16 Range/Units 10:55 10:55 10:55 WBC (4.0-11.0) K/uL RBC 2.94 L (4.50-5.90) M/uL Hgb (13.0-17.0) g/dL Hct (38.0-50.0) % MCV (80.0-98.0) fL MCH (27.0-32.0) pg MCHC (31.0-37.0) g/dL RDW Std Deviation (28.0-62.0) fl RDW Coeff of Kristy (11.0-15.0) % Plt Count (150-400) K/uL MPV (7.40-12.00) fL Neut % (Auto) (48.0-80.0) % Lymph % (Auto) (16.0-40.0) % [place] % (Auto) (0.0-15.0) % Eos % (Auto) (0.0-7.0) % Baso % (Auto) (0.0-1.5) % Neut # (Auto) (1.4-5.7) K/uL Lymph # (Auto) (0.6-2.4) K/uL [place] # (Auto) (0.0-0.8) K/uL Eos # (Auto) (0.0-0.7) K/uL Baso # (Auto) (0.0-0.1) K/uL Nucleated RBC % /100WBC Nucleated RBCs # K/uL Smear Path Review SENT TO PATHOLOGY Absolute Retic 91.10 H (20-80) K/uL Percent Retic 3.1 H (0.5-1.5) % Immature Retic Fraction 21 % Sodium Potassium Chloride Carbon Dioxide BUN Creatinine Est Cr Clr Drug Dosing Estimated GFR (MDRD) Glucose Calcium Magnesium (1.5-2.3) mEq/L Iron (50-170) ug/dL TIBC (273-456) ug/dL % Saturation (20-55) % Transferrin (200-400) ug/dL Total Bilirubin (0.1-1.5) mg/dL AST (5-40) IU/L ALT (8-54) IU/L Alkaline Phosphatase (40-150) Troponin I (0.0-0.29) NG/ML B-Natriuretic Peptide 497 H (<100) PG/ML Total Protein (6.0-8.0) g/dL Albumin (3.4-4.8) g/dL Globulin (2.0-3.5) g/dL Albumin/Globulin Ratio (1.3-2.8) Vitamin B12 (200-1100) PG/ML Folate (7.2-15.4) ng/mL TSH 3rd Generation (0.47-5.0) uIU/mL 10/13/16 10/13/16 10/13/16 Range/Units 14:15 14:15 14:18 WBC 10.37 (4.0-11.0) K/uL RBC 3.20 L (4.50-5.90) M/uL Hgb 8.5 L (13.0-17.0) g/dL Hct 27.1 L (38.0-50.0) % MCV 84.7 (80.0-98.0) fL MCH 26.6 L (27.0-32.0) pg MCHC 31.4 (31.0-37.0) g/dL RDW Std Deviation 53.1 (28.0-62.0) fl RDW Coeff of Kristy 17 H (11.0-15.0) % Plt Count 357 (150-400) K/uL MPV 8.90 (7.40-12.00) fL Neut % (Auto) 76.2 (48.0-80.0) % Lymph % (Auto) 13.2 L (16.0-40.0) % [place] % (Auto) 10.2 (0.0-15.0) % Eos % (Auto) 0.2 (0.0-7.0) % Baso % (Auto) 0.2 (0.0-1.5) % Neut # (Auto) 7.9 H (1.4-5.7) K/uL Lymph # (Auto) 1.4 (0.6-2.4) K/uL [place] # (Auto) 1.1 H (0.0-0.8) K/uL Eos # (Auto) 0.0 (0.0-0.7) K/uL Baso # (Auto) 0.0 (0.0-0.1) K/uL Nucleated RBC % 0.0 /100WBC Nucleated RBCs # 0 K/uL Smear Path Review Absolute Retic (20-80) K/uL Percent Retic (0.5-1.5) % Immature Retic Fraction % Sodium Potassium Chloride Carbon Dioxide BUN Creatinine Est Cr Clr Drug Dosing Estimated GFR (MDRD) Glucose Calcium Magnesium (1.5-2.3) mEq/L Iron 12 L (50-170) ug/dL TIBC 192 L (273-456) ug/dL % Saturation 6.25 L (20-55) % Transferrin 134 L (200-400) ug/dL Total Bilirubin (0.1-1.5) mg/dL AST (5-40) IU/L ALT (8-54) IU/L Alkaline Phosphatase (40-150) Troponin I (0.0-0.29) NG/ML B-Natriuretic Peptide (<100) PG/ML Total Protein (6.0-8.0) g/dL Albumin (3.4-4.8) g/dL Globulin (2.0-3.5) g/dL Albumin/Globulin Ratio (1.3-2.8) Vitamin B12 1564 H (200-1100) PG/ML Folate 14.5 (7.2-15.4) ng/mL TSH 3rd Generation 5.55 H (0.47-5.0) uIU/mL 10/13/16 10/13/16 10/13/16 Range/Units 14:18 14:18 14:18 WBC (4.0-11.0) K/uL RBC (4.50-5.90) M/uL Hgb (13.0-17.0) g/dL Hct (38.0-50.0) % MCV (80.0-98.0) fL MCH (27.0-32.0) pg MCHC (31.0-37.0) g/dL RDW Std Deviation (28.0-62.0) fl RDW Coeff of Kristy (11.0-15.0) % Plt Count (150-400) K/uL MPV (7.40-12.00) fL Neut % (Auto) (48.0-80.0) % Lymph % (Auto) (16.0-40.0) % [place] % (Auto) (0.0-15.0) % Eos % (Auto) (0.0-7.0) % Baso % (Auto) (0.0-1.5) % Neut # (Auto) (1.4-5.7) K/uL Lymph # (Auto) (0.6-2.4) K/uL [place] # (Auto) (0.0-0.8) K/uL Eos # (Auto) (0.0-0.7) K/uL Baso # (Auto) (0.0-0.1) K/uL Nucleated RBC % /100WBC Nucleated RBCs # K/uL Smear Path Review Absolute Retic (20-80) K/uL Percent Retic (0.5-1.5) % Immature Retic Fraction % Sodium Cancelled 132 L Potassium Cancelled 3.8 Chloride Cancelled 98 Carbon Dioxide Cancelled 25 BUN Cancelled 12 Creatinine Cancelled 0.7 Est Cr Clr Drug Dosing Cancelled 98.19 Estimated GFR (MDRD) Cancelled > 60.0 Glucose Cancelled 104 Calcium Cancelled 8.1 L Magnesium 1.5 (1.5-2.3) mEq/L Iron (50-170) ug/dL TIBC (273-456) ug/dL % Saturation (20-55) % Transferrin (200-400) ug/dL Total Bilirubin 0.7 (0.1-1.5) mg/dL AST 23 (5-40) IU/L ALT 21 (8-54) IU/L Alkaline Phosphatase 106 (40-150) Troponin I < 0.10 (0.0-0.29) NG/ML B-Natriuretic Peptide (<100) PG/ML Total Protein 6.8 (6.0-8.0) g/dL Albumin 2.8 L (3.4-4.8) g/dL Globulin 4.0 H (2.0-3.5) g/dL Albumin/Globulin Ratio 0.7 L (1.3-2.8) Vitamin B12 (200-1100) PG/ML Folate (7.2-15.4) ng/mL TSH 3rd Generation (0.47-5.0) uIU/mL 10/13/16 10/14/16 10/14/16 Range/Units 19:44 02:02 05:14 WBC 9.92 (4.0-11.0) K/uL RBC 2.89 L (4.50-5.90) M/uL Hgb 7.9 L (13.0-17.0) g/dL Hct 24.3 L (38.0-50.0) % MCV 84.1 (80.0-98.0) fL MCH 27.3 (27.0-32.0) pg MCHC 32.5 (31.0-37.0) g/dL RDW Std Deviation 52.2 (28.0-62.0) fl RDW Coeff of Kristy 17 H (11.0-15.0) % Plt Count 344 (150-400) K/uL MPV 8.70 (7.40-12.00) fL Neut % (Auto) 77.8 (48.0-80.0) % Lymph % (Auto) 14.2 L (16.0-40.0) % [place] % (Auto) 7.7 (0.0-15.0) % Eos % (Auto) 0.2 (0.0-7.0) % Baso % (Auto) 0.1 (0.0-1.5) % Neut # (Auto) 7.7 H (1.4-5.7) K/uL Lymph # (Auto) 1.4 (0.6-2.4) K/uL [place] # (Auto) 0.8 (0.0-0.8) K/uL Eos # (Auto) 0.0 (0.0-0.7) K/uL Baso # (Auto) 0.0 (0.0-0.1) K/uL Nucleated RBC % 0.0 /100WBC Nucleated RBCs # 0 K/uL Smear Path Review Absolute Retic (20-80) K/uL Percent Retic (0.5-1.5) % Immature Retic Fraction % Sodium Potassium Chloride Carbon Dioxide BUN Creatinine Est Cr Clr Drug Dosing Estimated GFR (MDRD) Glucose Calcium Magnesium (1.5-2.3) mEq/L Iron (50-170) ug/dL TIBC (273-456) ug/dL % Saturation (20-55) % Transferrin (200-400) ug/dL Total Bilirubin (0.1-1.5) mg/dL AST (5-40) IU/L ALT (8-54) IU/L Alkaline Phosphatase (40-150) Troponin I < 0.10 < 0.10 (0.0-0.29) NG/ML B-Natriuretic Peptide (<100) PG/ML Total Protein (6.0-8.0) g/dL Albumin (3.4-4.8) g/dL Globulin (2.0-3.5) g/dL Albumin/Globulin Ratio (1.3-2.8) Vitamin B12 (200-1100) PG/ML Folate (7.2-15.4) ng/mL TSH 3rd Generation (0.47-5.0) uIU/mL 04/26/17 Range/Units 05:14 WBC (4.0-11.0) K/uL RBC (4.50-5.90) M/uL Hgb (13.0-17.0) g/dL Hct (38.0-50.0) % MCV (80.0-98.0) fL MCH (27.0-32.0) pg MCHC (31.0-37.0) g/dL RDW Std Deviation (28.0-62.0) fl RDW Coeff of Kristy (11.0-15.0) % Plt Count (150-400) K/uL MPV (7.40-12.00) fL Neut % (Auto) (48.0-80.0) % Lymph % (Auto) (16.0-40.0) % [place] % (Auto) (0.0-15.0) % Eos % (Auto) (0.0-7.0) % Baso % (Auto) (0.0-1.5) % Neut # (Auto) (1.4-5.7) K/uL Lymph # (Auto) (0.6-2.4) K/uL [place] # (Auto) (0.0-0.8) K/uL Eos # (Auto) (0.0-0.7) K/uL Baso # (Auto) (0.0-0.1) K/uL Nucleated RBC % /100WBC Nucleated RBCs # K/uL Smear Path Review Absolute Retic (20-80) K/uL Percent Retic (0.5-1.5) % Immature Retic Fraction % Sodium 131 L Potassium 3.3 L Chloride 96 L Carbon Dioxide 26 BUN 9 Creatinine 0.8 Est Cr Clr Drug Dosing 85.92 Estimated GFR (MDRD) > 60.0 Glucose 111 H Calcium 7.8 L Magnesium 1.7 (1.5-2.3) mEq/L Iron (50-170) ug/dL TIBC (273-456) ug/dL % Saturation (20-55) % Transferrin (200-400) ug/dL Total Bilirubin (0.1-1.5) mg/dL AST (5-40) IU/L ALT (8-54) IU/L Alkaline Phosphatase (40-150) Troponin I (0.0-0.29) NG/ML B-Natriuretic Peptide (<100) PG/ML Total Protein (6.0-8.0) g/dL Albumin (3.4-4.8) g/dL Globulin (2.0-3.5) g/dL Albumin/Globulin Ratio (1.3-2.8) Vitamin B12 (200-1100) PG/ML Folate (7.2-15.4) ng/mL TSH 3rd Generation (0.47-5.0) uIU/mL Med Orders - Current: Current Medications Acetaminophen (Tylenol) 650 mg PO Q6H PRN PRN Reason: Fever Last Admin: 10/14/16 00:12 Dose: 650 mg Hydrocodone Bitart/Acetaminophen ([place] 325-5 Mg) 1 tab PO QID PRN PRN Reason: Pain Last Admin: 10/13/16 16:16 Dose: 1 tab Azithromycin (Zithromax) 250 mg PO Q24H ANJALI Furosemide (Lasix) 40 mg IVPUSH .ONETIME ANJALI Pantoprazole Sodium 80 mg/ (Sodium Chloride) 100 mls @ 10 mls/hr IV Q10H ANJALI Last Admin: 10/14/16 03:37 Dose: 10 mls/hr Magnesium Sulfate 2 gm/ Premix 50 mls @ 50 mls/hr IV ONETIME ONE Stop: 10/14/16 08:48 Levothyroxine Sodium (Levothyroxine) 150 mcg PO ACBREAKFAST ANJALI Last Admin: 10/14/16 06:57 Dose: 150 mcg Potassium Chloride (Klor-Con M20) 40 meq PO BIDMEALS [facility] Discontinued Medications Azithromycin (Zithromax) 500 mg PO Q24H ONE Stop: 10/14/16 07:57 Fentanyl (Sublimaze) Confirm Administered Dose 100 mcg .ROUTE .STK-MED ONE Stop: 10/13/16 07:18 Furosemide (Lasix) 40 mg IVPUSH NOW ONE Stop: 10/13/16 20:01 Last Admin: 10/13/16 20:28 Dose: 40 mg Lactated Ringer's (Ringers, Lactated) 1,000 mls @ 125 mls/hr IV ASDIRECTED ANJALI Last Admin: 10/13/16 08:40 Dose: 125 mls/hr Pantoprazole Sodium 80 mg/ (Sodium Chloride) 20 mls @ 80 mls/hr IV ONETIME ONE Stop: 10/13/16 16:18 Last Admin: 10/13/16 17:00 Dose: 80 mls/hr Magnesium Sulfate 2 gm/ Premix 50 mls @ 50 mls/hr IV ONETIME ONE Stop: 10/13/16 19:25 Last Infusion: 10/13/16 20:27 Dose: Infused Lidocaine (Xylocaine-Mpf 2%) Confirm Administered Dose 5 ml .ROUTE .STK-MED ONE Stop: 10/13/16 07:18 Propofol (Diprivan 20 Ml) Confirm Administered Dose 400 mg .ROUTE .STK-MED ONE Stop: 10/13/16 07:18 - Exam General: alert, oriented, cooperative Neck: supple, JVD Lungs: Rhonchi (L base). No: Wheezing Cardiovascular: Regular Rate, Regular Rhythm, No Murmurs. No: Irregular Rhythm , Tachycardia Abdomen: bowel sounds present, soft, no tenderness, no distension Extremities: normal pulses, edema (+2 pitting edema BLE, improved since yesterday) Psy/Mental Status: alert, normal affect, normal mood - Problem List & Annotations (1) Bilateral lower extremity edema SNOMED Code(s): 186744165 Code(s): R60.0 - LOCALIZED EDEMA Status: Acute Current Visit: Yes (2) Tachycardia SNOMED Code(s): 6089744 Code(s): R00.0 - TACHYCARDIA, UNSPECIFIED Status: Acute Current Visit: Yes (3) Hypothyroidism SNOMED Code(s): 84776000 Code(s): E03.9 - HYPOTHYROIDISM, UNSPECIFIED Status: Chronic Current Visit: Yes Qualifiers: Hypothyroidism type: unspecified Qualified Code(s): E03.9 - Hypothyroidism , unspecified (4) Anemia SNOMED Code(s): 536541036 Code(s): D64.9 - ANEMIA, UNSPECIFIED Status: Acute Current Visit: No Qualifiers: Anemia type: unspecified type Qualified Code(s): D64.9 - Anemia, unspecified - Problem List Review Problem List Initiated/Reviewed/Updated: Yes - My Orders Last 24 Hours: My Active Orders 10/13/16 14:15 FERRITIN [REF] Routine 10/13/16 15:36 Hemoccult [Fecal Occult Blood Collection] [RC] ASDIRECTED Hemoccult [OCCULT BLOOD DIAGNOSTIC] [OP] Routine 10/13/16 15:38 Telemetry Monitoring [Cardiac Monitoring] [RC] . DIRECTED Consult to Physician [CONS] Routine 10/13/16 15:39 Notify Provider Consults [RC] ASDIRECTED 10/13/16 15:42 Echo Comp wo Cont [US] Routine 10/13/16 15:53 Acetaminophen/HYDROcodone [[place] 325-5 MG] 1 tab PO QID PRN 10/13/16 16:09 Chest 2V [CR] Routine 10/13/16 16:15 Pantoprazole [ProTONIX IV] 80 mg Sodium Chloride 0.9% [Normal Saline] 100 ml IV Q10H 10/13/16 17:03 Resuscitation Status Routine 10/14/16 07:30 Levothyroxine 150 mcg PO ACBREAKFAST 10/14/16 07:49 Magnesium Sulfate/Water [Magnesium Sulfate 2 GM in Water 50 ML] 2 gm Premix Bag 1 bag IV ONETIME 10/14/16 07:50 RED BLOOD CELLS LP [BBK] Routine TYPE AND SCREEN [BBK] Routine 10/14/16 07:54 IS (RT) [RT Incentive Spirometry] [RC] ASDIRECTED 10/14/16 08:00 Potassium Chloride [Klor-Con M20] 40 meq PO BIDMEALS 10/14/16 Breakfast Low Sodium [Sodium Restricted Diet] [DIET] 10/15/16 05:00 BASIC METABOLIC PANEL,BMP [CHEM] DAILY CBC WITH AUTO DIFF [HEME] DAILY MG [MAGNESIUM] [CHEM] DAILY 10/15/16 08:00 Azithromycin [Zithromax] 250 mg PO Q24H 10/16/16 05:00 BASIC METABOLIC PANEL,BMP [CHEM] DAILY CBC WITH AUTO DIFF [HEME] DAILY MG [MAGNESIUM] [CHEM] DAILY 10/17/16 05:00 BASIC METABOLIC PANEL,BMP [CHEM] DAILY CBC WITH AUTO DIFF [HEME] DAILY MG [MAGNESIUM] [CHEM] DAILY - Plan Plan:: This 71 year old male admitted with bilateral lower leg edema, anemia and tachycardia 1. Bilateral lower leg edema: Will give Lasix 40 mg IV this morning. Add another dose of Lasix this evening after 1 unit of blood transfused. Daily weights. ECHO pending. No hx of CHF. Monitor on telemetry. Dr Thrasher consulted and on case. 2. Tachycardia: No longer tachycardic. Monitor on telemetry, Serial troponins negative. 3. Anemia: normochromic anemia. Hemoccult negative. Continue Protonix gtt. Iron studies show iron deficiency anemia and peripheral smear pending. Hgb 7.9 today, will transfuse 1 unit PRBCs. Will need EGD and colonoscopy as outpatient to evaluate anemia further. 4. Hypothyroid: TSH 5.55, dose was just increased by Dr Contreras. Resume Levothyroxine 5. Hyponatremia: Maybe secondary to potential CHF, monitor. 6. Developing pneumonia/atelectasis: L basilar atelectasis noted on CXR yesterday, no symptoms yesterday, Fever was noted overnight. Will start Azithromycin and Rocephin. Monitor. VTE: SCDs only due to GI bleed Dispo: 2-3 days pending improvement
[2016-10-14] MEDS ORDERED: Furosemide 40 MG/4 ML VIAL IVPUSH ONE ×2 (10:30→16:00)
[2016-10-14] MEDS ORDERED: diphenhydrAMINE 25 MG Cap PO ONE (12:30)
--- NOTE | 2016-10-14 14:57 | PCM.SN ---
- Free Text/Narrative Note: Transfusion stopped due to reaction. Temperature continued to increase to 101.1 F with noteable flushing and tachycardia. Once blood was stopped fever reduced to 99 and tachycardia was resolving. Patient denies chest pain, SOB or palpitations. He denies feeling like his throat is closing. His only complaint was feeling flushed and "burning up". BP 90/55, no dizziness or lightheadedness. Will monitor recheck Hgb this evening.
--- NOTE | 2016-10-14 15:02 | PCM.PN ---
- General Info Date of Service: 10/14/16 Admission Dx/Problem (Free Text): 71M with AT, with CHF - Review of Systems General: Reports: No Symptoms HEENT: Reports: no symptoms Pulmonary: Reports: no symptoms Cardiovascular: Reports: No Symptoms Gastrointestinal: Reports: No symptoms Genitourinary: Reports: no symptoms Musculoskeletal: Reports: no symptoms Skin: Reports: no symptoms - Patient Data Vitals - most recent: Last Vital Signs Temp 36.9 C 10/14/16 14:10 Pulse 109 H 10/14/16 14:10 Resp 18 10/14/16 14:10 BP 90/55 L 10/14/16 14:10 Pulse Ox 93 L 10/14/16 14:10 Weight - most recent: 77.111 kg I&O - last 24 hours: Intake & Output 10/13/16 10/14/16 10/14/16 22:59 06:59 14:59 Intake Total 500 1250 139 Output Total 1350 3175 Balance -850 -1925 139 Lab Results last 24 hrs: Laboratory Results - last 24 hr 10/13/16 10/13/16 10/13/16 Range/Units 10:55 10:55 14:15 WBC (4.0-11.0) K/uL RBC 2.94 L (4.50-5.90) M/uL Hgb (13.0-17.0) g/dL Hct (38.0-50.0) % MCV (80.0-98.0) fL MCH (27.0-32.0) pg MCHC (31.0-37.0) g/dL RDW Std Deviation (28.0-62.0) fl RDW Coeff of Kristy (11.0-15.0) % Plt Count (150-400) K/uL MPV (7.40-12.00) fL Neut % (Auto) (48.0-80.0) % Lymph % (Auto) (16.0-40.0) % [place] % (Auto) (0.0-15.0) % Eos % (Auto) (0.0-7.0) % Baso % (Auto) (0.0-1.5) % Neut # (Auto) (1.4-5.7) K/uL Lymph # (Auto) (0.6-2.4) K/uL [place] # (Auto) (0.0-0.8) K/uL Eos # (Auto) (0.0-0.7) K/uL Baso # (Auto) (0.0-0.1) K/uL Nucleated RBC % /100WBC Nucleated RBCs # K/uL Smear Path Review SENT TO PATHOLOGY Absolute Retic 91.10 H (20-80) K/uL Percent Retic 3.1 H (0.5-1.5) % Immature Retic Fraction 21 % Sodium Potassium Chloride Carbon Dioxide BUN Creatinine Est Cr Clr Drug Dosing Estimated GFR (MDRD) Glucose Calcium Magnesium (1.5-2.3) mEq/L Iron (50-170) ug/dL TIBC (273-456) ug/dL % Saturation (20-55) % Transferrin (200-400) ug/dL Total Bilirubin (0.1-1.5) mg/dL AST (5-40) IU/L ALT (8-54) IU/L Alkaline Phosphatase (40-150) Troponin I (0.0-0.29) NG/ML Total Protein (6.0-8.0) g/dL Albumin (3.4-4.8) g/dL Globulin (2.0-3.5) g/dL Albumin/Globulin Ratio (1.3-2.8) Vitamin B12 1564 H (200-1100) PG/ML Folate 14.5 (7.2-15.4) ng/mL TSH 3rd Generation 5.55 H (0.47-5.0) uIU/mL Blood Type Antibody Screen Crossmatch 10/13/16 10/13/16 10/13/16 Range/Units 14:15 14:18 14:18 WBC (4.0-11.0) K/uL RBC (4.50-5.90) M/uL Hgb (13.0-17.0) g/dL Hct (38.0-50.0) % MCV (80.0-98.0) fL MCH (27.0-32.0) pg MCHC (31.0-37.0) g/dL RDW Std Deviation (28.0-62.0) fl RDW Coeff of Kristy (11.0-15.0) % Plt Count (150-400) K/uL MPV (7.40-12.00) fL Neut % (Auto) (48.0-80.0) % Lymph % (Auto) (16.0-40.0) % [place] % (Auto) (0.0-15.0) % Eos % (Auto) (0.0-7.0) % Baso % (Auto) (0.0-1.5) % Neut # (Auto) (1.4-5.7) K/uL Lymph # (Auto) (0.6-2.4) K/uL [place] # (Auto) (0.0-0.8) K/uL Eos # (Auto) (0.0-0.7) K/uL Baso # (Auto) (0.0-0.1) K/uL Nucleated RBC % /100WBC Nucleated RBCs # K/uL Smear Path Review Absolute Retic (20-80) K/uL Percent Retic (0.5-1.5) % Immature Retic Fraction % Sodium Cancelled 132 L Potassium Cancelled 3.8 Chloride Cancelled 98 Carbon Dioxide Cancelled 25 BUN Cancelled 12 Creatinine Cancelled 0.7 Est Cr Clr Drug Dosing Cancelled 98.19 Estimated GFR (MDRD) Cancelled > 60.0 Glucose Cancelled 104 Calcium Cancelled 8.1 L Magnesium 1.5 (1.5-2.3) mEq/L Iron 12 L (50-170) ug/dL TIBC 192 L (273-456) ug/dL % Saturation 6.25 L (20-55) % Transferrin 134 L (200-400) ug/dL Total Bilirubin 0.7 (0.1-1.5) mg/dL AST 23 (5-40) IU/L ALT 21 (8-54) IU/L Alkaline Phosphatase 106 (40-150) Troponin I (0.0-0.29) NG/ML Total Protein 6.8 (6.0-8.0) g/dL Albumin 2.8 L (3.4-4.8) g/dL Globulin 4.0 H (2.0-3.5) g/dL Albumin/Globulin Ratio 0.7 L (1.3-2.8) Vitamin B12 (200-1100) PG/ML Folate (7.2-15.4) ng/mL TSH 3rd Generation (0.47-5.0) uIU/mL Blood Type Antibody Screen Crossmatch 10/13/16 10/14/16 10/14/16 Range/Units 19:44 02:02 05:14 WBC 9.92 (4.0-11.0) K/uL RBC 2.89 L (4.50-5.90) M/uL Hgb 7.9 L (13.0-17.0) g/dL Hct 24.3 L (38.0-50.0) % MCV 84.1 (80.0-98.0) fL MCH 27.3 (27.0-32.0) pg MCHC 32.5 (31.0-37.0) g/dL RDW Std Deviation 52.2 (28.0-62.0) fl RDW Coeff of Kristy 17 H (11.0-15.0) % Plt Count 344 (150-400) K/uL MPV 8.70 (7.40-12.00) fL Neut % (Auto) 77.8 (48.0-80.0) % Lymph % (Auto) 14.2 L (16.0-40.0) % [place] % (Auto) 7.7 (0.0-15.0) % Eos % (Auto) 0.2 (0.0-7.0) % Baso % (Auto) 0.1 (0.0-1.5) % Neut # (Auto) 7.7 H (1.4-5.7) K/uL Lymph # (Auto) 1.4 (0.6-2.4) K/uL [place] # (Auto) 0.8 (0.0-0.8) K/uL Eos # (Auto) 0.0 (0.0-0.7) K/uL Baso # (Auto) 0.0 (0.0-0.1) K/uL Nucleated RBC % 0.0 /100WBC Nucleated RBCs # 0 K/uL Smear Path Review Absolute Retic (20-80) K/uL Percent Retic (0.5-1.5) % Immature Retic Fraction % Sodium Potassium Chloride Carbon Dioxide BUN Creatinine Est Cr Clr Drug Dosing Estimated GFR (MDRD) Glucose Calcium Magnesium (1.5-2.3) mEq/L Iron (50-170) ug/dL TIBC (273-456) ug/dL % Saturation (20-55) % Transferrin (200-400) ug/dL Total Bilirubin (0.1-1.5) mg/dL AST (5-40) IU/L ALT (8-54) IU/L Alkaline Phosphatase (40-150) Troponin I < 0.10 < 0.10 (0.0-0.29) NG/ML Total Protein (6.0-8.0) g/dL Albumin (3.4-4.8) g/dL Globulin (2.0-3.5) g/dL Albumin/Globulin Ratio (1.3-2.8) Vitamin B12 (200-1100) PG/ML Folate (7.2-15.4) ng/mL TSH 3rd Generation (0.47-5.0) uIU/mL Blood Type Antibody Screen Crossmatch 10/14/16 10/14/16 Range/Units 05:14 08:19 WBC (4.0-11.0) K/uL RBC (4.50-5.90) M/uL Hgb (13.0-17.0) g/dL Hct (38.0-50.0) % MCV (80.0-98.0) fL MCH (27.0-32.0) pg MCHC (31.0-37.0) g/dL RDW Std Deviation (28.0-62.0) fl RDW Coeff of Kristy (11.0-15.0) % Plt Count (150-400) K/uL MPV (7.40-12.00) fL Neut % (Auto) (48.0-80.0) % Lymph % (Auto) (16.0-40.0) % [place] % (Auto) (0.0-15.0) % Eos % (Auto) (0.0-7.0) % Baso % (Auto) (0.0-1.5) % Neut # (Auto) (1.4-5.7) K/uL Lymph # (Auto) (0.6-2.4) K/uL [place] # (Auto) (0.0-0.8) K/uL Eos # (Auto) (0.0-0.7) K/uL Baso # (Auto) (0.0-0.1) K/uL Nucleated RBC % /100WBC Nucleated RBCs # K/uL Smear Path Review Absolute Retic (20-80) K/uL Percent Retic (0.5-1.5) % Immature Retic Fraction % Sodium 131 L Potassium 3.3 L Chloride 96 L Carbon Dioxide 26 BUN 9 Creatinine 0.8 Est Cr Clr Drug Dosing 85.92 Estimated GFR (MDRD) > 60.0 Glucose 111 H Calcium 7.8 L Magnesium 1.7 (1.5-2.3) mEq/L Iron (50-170) ug/dL TIBC (273-456) ug/dL % Saturation (20-55) % Transferrin (200-400) ug/dL Total Bilirubin (0.1-1.5) mg/dL AST (5-40) IU/L ALT (8-54) IU/L Alkaline Phosphatase (40-150) Troponin I (0.0-0.29) NG/ML Total Protein (6.0-8.0) g/dL Albumin (3.4-4.8) g/dL Globulin (2.0-3.5) g/dL Albumin/Globulin Ratio (1.3-2.8) Vitamin B12 (200-1100) PG/ML Folate (7.2-15.4) ng/mL TSH 3rd Generation (0.47-5.0) uIU/mL Blood Type O POSITIVE Antibody Screen NEGATIVE Crossmatch See Detail Satish Results last 24 hrs: Microbiology 10/14/16 08:50 Stool Occult Blood (SATISH) - Final Stool / Feces - Stool, Liquid NEGATIVE OCCULT BLOOD Med Orders - Current: Current Medications Acetaminophen (Tylenol) 650 mg PO Q6H PRN PRN Reason: Fever Last Admin: 10/14/16 12:32 Dose: 650 mg Hydrocodone Bitart/Acetaminophen ([place] 325-5 Mg) 1 tab PO QID PRN PRN Reason: Pain Last Admin: 10/13/16 16:16 Dose: 1 tab Azithromycin (Zithromax) 250 mg PO Q24H ANJALI Furosemide (Lasix) 40 mg IVPUSH .ONETIME ANJALI Pantoprazole Sodium 80 mg/ (Sodium Chloride) 100 mls @ 10 mls/hr IV Q10H ANJALI Last Admin: 10/14/16 14:11 Dose: 10 mls/hr Levothyroxine Sodium (Levothyroxine) 150 mcg PO ACBREAKFAST ANJALI Last Admin: 10/14/16 06:57 Dose: 150 mcg Metoprolol Tartrate (Lopressor) 25 mg PO Q12HR ANJALI Potassium Chloride (Klor-Con M20) 40 meq PO BID ANJALI Discontinued Medications Azithromycin (Zithromax) 500 mg PO Q24H ONE Stop: 10/14/16 07:57 Last Admin: 10/14/16 08:15 Dose: 500 mg Diphenhydramine HCl (Benadryl) 25 mg PO ONETIME ONE Stop: 10/14/16 12:31 Last Admin: 10/14/16 12:32 Dose: 25 mg Fentanyl (Sublimaze) Confirm Administered Dose 100 mcg .ROUTE .STK-MED ONE Stop: 10/13/16 07:18 Furosemide (Lasix) 40 mg IVPUSH NOW ONE Stop: 10/13/16 20:01 Last Admin: 10/13/16 20:28 Dose: 40 mg Furosemide (Lasix) 40 mg IVPUSH NOW ONE Stop: 10/14/16 10:31 Last Admin: 10/14/16 11:49 Dose: 40 mg Furosemide (Lasix) 40 mg IVPUSH ONCALL ONE Stop: 10/14/16 16:01 Lactated Ringer's (Ringers, Lactated) 1,000 mls @ 125 mls/hr IV ASDIRECTED [facility] Last Admin: 10/13/16 08:40 Dose: 125 mls/hr Pantoprazole Sodium 80 mg/ (Sodium Chloride) 20 mls @ 80 mls/hr IV ONETIME ONE Stop: 10/13/16 16:18 Last Admin: 10/13/16 17:00 Dose: 80 mls/hr Magnesium Sulfate 2 gm/ Premix 50 mls @ 50 mls/hr IV ONETIME ONE Stop: 10/13/16 19:25 Last Infusion: 10/13/16 20:27 Dose: Infused Magnesium Sulfate 2 gm/ Premix 50 mls @ 50 mls/hr IV ONETIME ONE Stop: 10/14/16 08:48 Last Admin: 10/14/16 08:10 Dose: 50 mls/hr Lidocaine (Xylocaine-Mpf 2%) Confirm Administered Dose 5 ml .ROUTE .STK-MED ONE Stop: 10/13/16 07:18 Potassium Chloride (Klor-Con M20) 40 meq PO BIDMEALS [facility] Last Admin: 10/14/16 08:09 Dose: 40 meq Propofol (Diprivan 20 Ml) Confirm Administered Dose 400 mg .ROUTE .STK-MED ONE Stop: 10/13/16 07:18 - Exam General: alert, oriented HEENT: Pupils equal Neck: JVD Lungs: Rales Cardiovascular: Regular Rate, Regular Rhythm Abdomen: bowel sounds present, soft, no tenderness (Male) Exam: No hernia Extremities: edema Peripheral Pulses: 2+: carotid (L) EKG INTERPRETATION Rhythm: NSR - Problem List Review Problem List Initiated/Reviewed/Updated: Yes - My Orders Last 24 Hours: My Active Orders 10/14/16 14:54 Metoprolol Tartrate [Lopressor] 25 mg PO Q12HR - Plan Plan:: This 71 year old male admitted with bilateral lower leg edema, anemia and tachycardia 1. congestive HF, echo still pending, he got IV lasix 40 IV q 12 hours, I will add metoprolol 25 BID. weight daily, salt limitation. 2. anemia: received PRBC, goal of Hb > 8 lasix after PRBC, he may need another dose of lasix tonight 3. tachycardia: most likely AT,now in SR
--- NOTE | 2016-10-14 15:12 | PCM.SURGPN ---
- General Info Date of Service: 10/14/16 Functional Status: Reports: pain controlled - Review of Systems Gastrointestinal: Reports: No symptoms - Patient Data Vitals - most recent: Last Vital Signs Temp 98.5 F 10/14/16 14:10 Pulse 109 H 10/14/16 14:10 Resp 18 10/14/16 14:10 BP 90/55 L 10/14/16 14:10 Pulse Ox 93 L 10/14/16 14:10 Weight - most recent: 170 lb I&O - last 24 hours: Intake & Output 10/14/16 10/14/16 10/14/16 06:59 14:59 22:59 Intake Total 1250 139 Output Total 3175 Balance -1925 139 Lab Results last 24 hrs: Laboratory Results - last 24 hr 10/13/16 10/13/16 10/13/16 Range/Units 10:55 10:55 14:15 WBC (4.0-11.0) K/uL RBC 2.94 L (4.50-5.90) M/uL Hgb (13.0-17.0) g/dL Hct (38.0-50.0) % MCV (80.0-98.0) fL MCH (27.0-32.0) pg MCHC (31.0-37.0) g/dL RDW Std Deviation (28.0-62.0) fl RDW Coeff of Kristy (11.0-15.0) % Plt Count (150-400) K/uL MPV (7.40-12.00) fL Neut % (Auto) (48.0-80.0) % Lymph % (Auto) (16.0-40.0) % [place] % (Auto) (0.0-15.0) % Eos % (Auto) (0.0-7.0) % Baso % (Auto) (0.0-1.5) % Neut # (Auto) (1.4-5.7) K/uL Lymph # (Auto) (0.6-2.4) K/uL [place] # (Auto) (0.0-0.8) K/uL Eos # (Auto) (0.0-0.7) K/uL Baso # (Auto) (0.0-0.1) K/uL Nucleated RBC % /100WBC Nucleated RBCs # K/uL Smear Path Review SENT TO PATHOLOGY Absolute Retic 91.10 H (20-80) K/uL Percent Retic 3.1 H (0.5-1.5) % Immature Retic Fraction 21 % Sodium Potassium Chloride Carbon Dioxide BUN Creatinine Est Cr Clr Drug Dosing Estimated GFR (MDRD) Glucose Calcium Magnesium (1.5-2.3) mEq/L Iron (50-170) ug/dL TIBC (273-456) ug/dL % Saturation (20-55) % Transferrin (200-400) ug/dL Total Bilirubin (0.1-1.5) mg/dL AST (5-40) IU/L ALT (8-54) IU/L Alkaline Phosphatase (40-150) Troponin I (0.0-0.29) NG/ML Total Protein (6.0-8.0) g/dL Albumin (3.4-4.8) g/dL Globulin (2.0-3.5) g/dL Albumin/Globulin Ratio (1.3-2.8) Vitamin B12 1564 H (200-1100) PG/ML Folate 14.5 (7.2-15.4) ng/mL TSH 3rd Generation 5.55 H (0.47-5.0) uIU/mL Blood Type Antibody Screen Crossmatch 10/13/16 10/13/16 10/13/16 Range/Units 14:15 14:18 14:18 WBC (4.0-11.0) K/uL RBC (4.50-5.90) M/uL Hgb (13.0-17.0) g/dL Hct (38.0-50.0) % MCV (80.0-98.0) fL MCH (27.0-32.0) pg MCHC (31.0-37.0) g/dL RDW Std Deviation (28.0-62.0) fl RDW Coeff of Kristy (11.0-15.0) % Plt Count (150-400) K/uL MPV (7.40-12.00) fL Neut % (Auto) (48.0-80.0) % Lymph % (Auto) (16.0-40.0) % [place] % (Auto) (0.0-15.0) % Eos % (Auto) (0.0-7.0) % Baso % (Auto) (0.0-1.5) % Neut # (Auto) (1.4-5.7) K/uL Lymph # (Auto) (0.6-2.4) K/uL [place] # (Auto) (0.0-0.8) K/uL Eos # (Auto) (0.0-0.7) K/uL Baso # (Auto) (0.0-0.1) K/uL Nucleated RBC % /100WBC Nucleated RBCs # K/uL Smear Path Review Absolute Retic (20-80) K/uL Percent Retic (0.5-1.5) % Immature Retic Fraction % Sodium Cancelled 132 L Potassium Cancelled 3.8 Chloride Cancelled 98 Carbon Dioxide Cancelled 25 BUN Cancelled 12 Creatinine Cancelled 0.7 Est Cr Clr Drug Dosing Cancelled 98.19 Estimated GFR (MDRD) Cancelled > 60.0 Glucose Cancelled 104 Calcium Cancelled 8.1 L Magnesium 1.5 (1.5-2.3) mEq/L Iron 12 L (50-170) ug/dL TIBC 192 L (273-456) ug/dL % Saturation 6.25 L (20-55) % Transferrin 134 L (200-400) ug/dL Total Bilirubin 0.7 (0.1-1.5) mg/dL AST 23 (5-40) IU/L ALT 21 (8-54) IU/L Alkaline Phosphatase 106 (40-150) Troponin I (0.0-0.29) NG/ML Total Protein 6.8 (6.0-8.0) g/dL Albumin 2.8 L (3.4-4.8) g/dL Globulin 4.0 H (2.0-3.5) g/dL Albumin/Globulin Ratio 0.7 L (1.3-2.8) Vitamin B12 (200-1100) PG/ML Folate (7.2-15.4) ng/mL TSH 3rd Generation (0.47-5.0) uIU/mL Blood Type Antibody Screen Crossmatch 10/13/16 10/14/16 10/14/16 Range/Units 19:44 02:02 05:14 WBC 9.92 (4.0-11.0) K/uL RBC 2.89 L (4.50-5.90) M/uL Hgb 7.9 L (13.0-17.0) g/dL Hct 24.3 L (38.0-50.0) % MCV 84.1 (80.0-98.0) fL MCH 27.3 (27.0-32.0) pg MCHC 32.5 (31.0-37.0) g/dL RDW Std Deviation 52.2 (28.0-62.0) fl RDW Coeff of Kristy 17 H (11.0-15.0) % Plt Count 344 (150-400) K/uL MPV 8.70 (7.40-12.00) fL Neut % (Auto) 77.8 (48.0-80.0) % Lymph % (Auto) 14.2 L (16.0-40.0) % [place] % (Auto) 7.7 (0.0-15.0) % Eos % (Auto) 0.2 (0.0-7.0) % Baso % (Auto) 0.1 (0.0-1.5) % Neut # (Auto) 7.7 H (1.4-5.7) K/uL Lymph # (Auto) 1.4 (0.6-2.4) K/uL [place] # (Auto) 0.8 (0.0-0.8) K/uL Eos # (Auto) 0.0 (0.0-0.7) K/uL Baso # (Auto) 0.0 (0.0-0.1) K/uL Nucleated RBC % 0.0 /100WBC Nucleated RBCs # 0 K/uL Smear Path Review Absolute Retic (20-80) K/uL Percent Retic (0.5-1.5) % Immature Retic Fraction % Sodium Potassium Chloride Carbon Dioxide BUN Creatinine Est Cr Clr Drug Dosing Estimated GFR (MDRD) Glucose Calcium Magnesium (1.5-2.3) mEq/L Iron (50-170) ug/dL TIBC (273-456) ug/dL % Saturation (20-55) % Transferrin (200-400) ug/dL Total Bilirubin (0.1-1.5) mg/dL AST (5-40) IU/L ALT (8-54) IU/L Alkaline Phosphatase (40-150) Troponin I < 0.10 < 0.10 (0.0-0.29) NG/ML Total Protein (6.0-8.0) g/dL Albumin (3.4-4.8) g/dL Globulin (2.0-3.5) g/dL Albumin/Globulin Ratio (1.3-2.8) Vitamin B12 (200-1100) PG/ML Folate (7.2-15.4) ng/mL TSH 3rd Generation (0.47-5.0) uIU/mL Blood Type Antibody Screen Crossmatch 10/14/16 10/14/16 Range/Units 05:14 08:19 WBC (4.0-11.0) K/uL RBC (4.50-5.90) M/uL Hgb (13.0-17.0) g/dL Hct (38.0-50.0) % MCV (80.0-98.0) fL MCH (27.0-32.0) pg MCHC (31.0-37.0) g/dL RDW Std Deviation (28.0-62.0) fl RDW Coeff of Kristy (11.0-15.0) % Plt Count (150-400) K/uL MPV (7.40-12.00) fL Neut % (Auto) (48.0-80.0) % Lymph % (Auto) (16.0-40.0) % [place] % (Auto) (0.0-15.0) % Eos % (Auto) (0.0-7.0) % Baso % (Auto) (0.0-1.5) % Neut # (Auto) (1.4-5.7) K/uL Lymph # (Auto) (0.6-2.4) K/uL [place] # (Auto) (0.0-0.8) K/uL Eos # (Auto) (0.0-0.7) K/uL Baso # (Auto) (0.0-0.1) K/uL Nucleated RBC % /100WBC Nucleated RBCs # K/uL Smear Path Review Absolute Retic (20-80) K/uL Percent Retic (0.5-1.5) % Immature Retic Fraction % Sodium 131 L Potassium 3.3 L Chloride 96 L Carbon Dioxide 26 BUN 9 Creatinine 0.8 Est Cr Clr Drug Dosing 85.92 Estimated GFR (MDRD) > 60.0 Glucose 111 H Calcium 7.8 L Magnesium 1.7 (1.5-2.3) mEq/L Iron (50-170) ug/dL TIBC (273-456) ug/dL % Saturation (20-55) % Transferrin (200-400) ug/dL Total Bilirubin (0.1-1.5) mg/dL AST (5-40) IU/L ALT (8-54) IU/L Alkaline Phosphatase (40-150) Troponin I (0.0-0.29) NG/ML Total Protein (6.0-8.0) g/dL Albumin (3.4-4.8) g/dL Globulin (2.0-3.5) g/dL Albumin/Globulin Ratio (1.3-2.8) Vitamin B12 (200-1100) PG/ML Folate (7.2-15.4) ng/mL TSH 3rd Generation (0.47-5.0) uIU/mL Blood Type O POSITIVE Antibody Screen NEGATIVE Crossmatch See Detail Satish Results last 24 hrs: Microbiology 10/14/16 08:50 Stool Occult Blood (SATISH) - Final Stool / Feces - Stool, Liquid NEGATIVE OCCULT BLOOD Med Orders - Current: Current Medications Acetaminophen (Tylenol) 650 mg PO Q6H PRN PRN Reason: Fever Last Admin: 10/14/16 12:32 Dose: 650 mg Hydrocodone Bitart/Acetaminophen ([place] 325-5 Mg) 1 tab PO QID PRN PRN Reason: Pain Last Admin: 10/13/16 16:16 Dose: 1 tab Azithromycin (Zithromax) 250 mg PO Q24H ANJALI Furosemide (Lasix) 40 mg IVPUSH .ONETIME ANJALI Pantoprazole Sodium 80 mg/ (Sodium Chloride) 100 mls @ 10 mls/hr IV Q10H ANJALI Last Admin: 10/14/16 14:11 Dose: 10 mls/hr Levothyroxine Sodium (Levothyroxine) 150 mcg PO ACBREAKFAST ANJALI Last Admin: 10/14/16 06:57 Dose: 150 mcg Metoprolol Tartrate (Lopressor) 25 mg PO Q12HR [facility] Potassium Chloride (Klor-Con M20) 40 meq PO BID ANJALI Discontinued Medications Azithromycin (Zithromax) 500 mg PO Q24H ONE Stop: 10/14/16 07:57 Last Admin: 10/14/16 08:15 Dose: 500 mg Diphenhydramine HCl (Benadryl) 25 mg PO ONETIME ONE Stop: 10/14/16 12:31 Last Admin: 10/14/16 12:32 Dose: 25 mg Fentanyl (Sublimaze) Confirm Administered Dose 100 mcg .ROUTE .STK-MED ONE Stop: 10/13/16 07:18 Furosemide (Lasix) 40 mg IVPUSH NOW ONE Stop: 10/13/16 20:01 Last Admin: 10/13/16 20:28 Dose: 40 mg Furosemide (Lasix) 40 mg IVPUSH NOW ONE Stop: 10/14/16 10:31 Last Admin: 10/14/16 11:49 Dose: 40 mg Furosemide (Lasix) 40 mg IVPUSH ONCALL ONE Stop: 10/14/16 16:01 Lactated Ringer's (Ringers, Lactated) 1,000 mls @ 125 mls/hr IV ASDIRECTED [facility] Last Admin: 10/13/16 08:40 Dose: 125 mls/hr Pantoprazole Sodium 80 mg/ (Sodium Chloride) 20 mls @ 80 mls/hr IV ONETIME ONE Stop: 10/13/16 16:18 Last Admin: 10/13/16 17:00 Dose: 80 mls/hr Magnesium Sulfate 2 gm/ Premix 50 mls @ 50 mls/hr IV ONETIME ONE Stop: 10/13/16 19:25 Last Infusion: 10/13/16 20:27 Dose: Infused Magnesium Sulfate 2 gm/ Premix 50 mls @ 50 mls/hr IV ONETIME ONE Stop: 10/14/16 08:48 Last Admin: 10/14/16 08:10 Dose: 50 mls/hr Lidocaine (Xylocaine-Mpf 2%) Confirm Administered Dose 5 ml .ROUTE .STK-MED ONE Stop: 10/13/16 07:18 Potassium Chloride (Klor-Con M20) 40 meq PO BIDMEALS [facility] Last Admin: 10/14/16 08:09 Dose: 40 meq Propofol (Diprivan 20 Ml) Confirm Administered Dose 400 mg .ROUTE .STK-MED ONE Stop: 10/13/16 07:18 - Exam Abdomen: bowel sounds present, soft, no tenderness, no distension - Problem List Review Problem List Initiated/Reviewed/Updated: Yes - My Orders Last 24 Hours: Active Orders 24 hr Category Date Time Status Patient Status [ADT] Routine ADT 10/13/16 15:27 Active Patient Status [ADT] Routine ADT 10/14/16 11:53 Active Daily Weight [Height and Weight] [RC] DAILY Care 10/13/16 15:29 Active Hemoccult [Fecal Occult Blood Collection] [RC] Care 10/13/16 15:36 Active ASDIRECTED IS (RT) [RT Incentive Spirometry] [RC] ASDIRECTED Care 10/14/16 07:54 Active Intake and Output Strict [RC] ASDIRECTED Care 10/13/16 15:29 Active Notify Provider Consults [RC] ASDIRECTED Care 10/13/16 15:17 Active Notify Provider Consults [RC] ASDIRECTED Care 10/13/16 15:39 Active Telemetry Monitoring [Cardiac Monitoring] [RC] . Care 10/13/16 15:38 Active DIRECTED Consult to Physician [CONS] Routine Cons 10/13/16 15:16 Active Consult to Physician [CONS] Routine Cons 10/13/16 15:38 Active Low Sodium [Sodium Restricted Diet] [DIET] Diet 10/14/16 Breakfast Active Chest 2V [CR] Routine Exams 10/13/16 16:09 Taken Echo Comp wo Cont [US] Routine Exams 10/13/16 15:42 Taken BASIC METABOLIC PANEL,BMP [CHEM] DAILY Lab 10/15/16 05:00 Ordered BASIC METABOLIC PANEL,BMP [CHEM] DAILY Lab 10/16/16 05:00 Ordered BASIC METABOLIC PANEL,BMP [CHEM] DAILY Lab 10/17/16 05:00 Ordered CBC WITH AUTO DIFF [HEME] DAILY Lab 10/15/16 05:00 Ordered CBC WITH AUTO DIFF [HEME] DAILY Lab 10/16/16 05:00 Ordered CBC WITH AUTO DIFF [HEME] DAILY Lab 10/17/16 05:00 Ordered CULTURE BLOOD [BC] Stat Lab 10/14/16 13:39 Received CULTURE BLOOD [BC] Stat Lab 10/14/16 13:52 Received FERRITIN [REF] Routine Lab 10/13/16 14:15 Received MG [MAGNESIUM] [CHEM] DAILY Lab 10/15/16 05:00 Ordered MG [MAGNESIUM] [CHEM] DAILY Lab 10/16/16 05:00 Ordered MG [MAGNESIUM] [CHEM] DAILY Lab 10/17/16 05:00 Ordered RED BLOOD CELLS LP [BBK] Routine Lab 10/14/16 08:19 Results TRANSFUSION REACTION [BBK] Stat Lab 10/14/16 13:52 Received TYPE AND SCREEN [BBK] Routine Lab 10/14/16 08:19 Results Acetaminophen [Tylenol] Med 10/13/16 23:57 Active 650 mg PO Q6H PRN Acetaminophen/HYDROcodone [[place] 325-5 MG] Med 10/13/16 15:53 Active 1 tab PO QID PRN Azithromycin [Zithromax] Med 10/15/16 08:00 Active 250 mg PO Q24H Levothyroxine Med 10/14/16 07:30 Active 150 mcg PO ACBREAKFAST Metoprolol Tartrate [Lopressor] Med 10/14/16 14:54 Active 25 mg PO Q12HR Pantoprazole [ProTONIX IV] 80 mg Med 10/13/16 16:15 Active Sodium Chloride 0.9% [Normal Saline] 100 ml IV Q10H Potassium Chloride [Klor-Con M20] Med 10/14/16 21:00 Active 40 meq PO BID Blood Culture x2 Reflex Set [OM.PC] Stat Oth 10/14/16 12:23 Ordered Transfuse PRBC [Transfuse Red Blood Cells] [COMM] Oth 10/14/16 10:24 Ordered Routine Resuscitation Status Routine Resus Stat 10/13/16 17:03 Ordered Medication Orders Acetaminophen (Tylenol) 650 mg PO Q6H PRN PRN Reason: Fever Last Admin: 10/14/16 12:32 Dose: 650 mg Admin: 10/14/16 00:12 Dose: 650 mg Hydrocodone Bitart/Acetaminophen ([place] 325-5 Mg) 1 tab PO QID PRN PRN Reason: Pain Last Admin: 10/13/16 16:16 Dose: 1 tab Azithromycin (Zithromax) 250 mg PO Q24H ANJALI Furosemide (Lasix) 40 mg IVPUSH .ONETIME ANJALI Pantoprazole Sodium 80 mg/ (Sodium Chloride) 100 mls @ 10 mls/hr IV Q10H ANJALI Last Admin: 10/14/16 14:11 Dose: 10 mls/hr Infusion: 10/14/16 13:37 Dose: 10 mls/hr Admin: 10/14/16 03:37 Dose: 10 mls/hr Infusion: 10/14/16 03:36 Dose: 10 mls/hr Admin: 10/13/16 17:00 Dose: 10 mls/hr Levothyroxine Sodium (Levothyroxine) 150 mcg PO ACBREAKFAST [facility] Last Admin: 10/14/16 06:57 Dose: 150 mcg Metoprolol Tartrate (Lopressor) 25 mg PO Q12HR ANJALI Potassium Chloride (Klor-Con M20) 40 meq PO BID ANJALI - Assessment Assessment (Free Text/Narrative):: endoscope cancelled because of clinically chf; thanks for cardiology and hospital inputs; ow, pt is baseline from surg standpoint; no intention to do any elective endoscope while pt being work up for cardiology; may benefit from hemOnc consult for anemia - Plan Plan (Free Text/Narrative):: endoscope cancelled because of clinically chf; thanks for cardiology and hospital inputs; ow, pt is baseline from surg standpoint; no intention to do any elective endoscope while pt being work up for cardiology; may benefit from hemOnc consult for anemia
--- NOTE | 2016-10-14 15:33 | CR ---
EXAM DATE: 10/14/16 PATIENT'S AGE: 71 Patient: VICKI KEYES Facility: [place], [place] Site . Site : [id number] Study: XRay Chest [id number]/25/2017 6:06:24 PM Ordering Physician: Dee Mayberry Final Report: INDICATION: tachycardia, bilateral lower leg edema TECHNIQUE: Chest radiograph 2 views on 3 films COMPARISON: 09/20/2016 FINDINGS: Cardiovascular and mediastinum: The heart silhouette is normal in size and morphology. The mediastinum is normal in appearance. Lungs and pleural spaces: Mild left basilar atelectasis and small left pleural effusion seen. No pneumothorax is identified. Bones and soft tissues: No significant findings. IMPRESSION: 1. Mild left basilar atelectasis and small left pleural effusion seen. Dictated by Velasquez Snow MD @ 10/13/2016 6:45:14 PM Dictated by: Velasquez Snow MD @ 10/13/2016 18:45:16 (Electronic Signature) Report Signed by Proxy and Original Signed Document filed in the Medical Record. [facility]
[2016-10-14] MEDS: Metoprolol Tartrate 25 MG Tab PO SCH ×2 (16:33→23:35)
[2016-10-14] MEDS ORDERED: diphenhydrAMINE 50 MG Cap PO ONE (16:55)
[2016-10-14] MEDS ORDERED: Acetaminophen 325 MG Tab PO ONE (16:55)
[2016-10-14] MEDS: Potassium Chloride 20 MEQ Tab.ER PO SCH (20:34)
[2016-10-14] MEDS ORDERED: Furosemide 20 MG/2 ML VIAL IVPUSH ONE (22:00)
[2016-10-15] MEDS: Acetaminophen 325 MG Tab PO PRN ×2 (01:31→11:17)
[2016-10-15 06:14] LABS: CHLORIDE,CL 96 mmol/L (98-110); SODIUM,NA 131 mmol/L (136-146)
[2016-10-15] MEDS: Levothyroxine 150 MCG Tab PO SCH (06:36)
[2016-10-15] MEDS: Metoprolol Tartrate 25 MG Tab PO SCH ×2 (08:30→21:51)
[2016-10-15] MEDS: Azithromycin 250 MG Tab PO SCH (08:30)
[2016-10-15] MEDS: Potassium Chloride 20 MEQ Tab.ER PO SCH ×2 (08:31→21:51)
[2016-10-15] MEDS: Pantoprazole 80 MG in Sodium Chloride 0.9% 100 ML IV SCH ×2 (10:05→20:11)
[2016-10-15] MEDS: Furosemide 40 MG/4 ML VIAL IVPUSH SCH ×2 (11:11→21:51)
[2016-10-15] MEDS ORDERED: diphenhydrAMINE 50 MG Cap PO ONE (14:00)
--- NOTE | 2016-10-15 14:35 | PCM.PN ---
<Anup Bell - Last Filed: 10/15/16 14:35> - General Info Date of Service: 10/15/16 Admission Dx/Problem (Free Text): 71M with AT, with CHF Subjective Update: Patient continues to do well. He denies any chest pain or palpitations. His lower extremity edema has significantly improved since admission. He has not had any additional black stools since admission. He has been afebrile. He is tolerating oral intake and denies any nausea, vomiting, abdominal pain. Functional Status: Reports: pain controlled, tolerating diet, ambulating, urinating - Review of Systems General: Reports: Weakness HEENT: Reports: no symptoms Pulmonary: Reports: no symptoms Cardiovascular: Reports: Edema (Improving in the lower extremities bilaterally.) Gastrointestinal: Reports: No symptoms Genitourinary: Reports: no symptoms Musculoskeletal: Reports: no symptoms Skin: Reports: no symptoms Neurological: Reports: No Symptoms Psychiatric: Reports: no symptoms - Patient Data Vitals - most recent: Last Vital Signs Temp 99.4 F 10/15/16 11:50 Pulse 85 10/15/16 11:50 Resp 22 H 10/15/16 11:50 BP 113/68 10/15/16 11:50 Pulse Ox 91 L 10/15/16 11:50 Weight - most recent: 80.9 kg I&O - last 24 hours: Intake & Output 10/14/16 10/15/16 10/15/16 22:59 06:59 14:59 Intake Total 2480 2210 Output Total 2800 1925 Balance -320 285 Lab Results last 24 hrs: Laboratory Results - last 24 hr 10/13/16 10/14/16 10/14/16 Range/Units 14:15 08:19 13:52 WBC (4.0-11.0) K/uL RBC (4.50-5.90) M/uL Hgb (13.0-17.0) g/dL Hct (38.0-50.0) % MCV (80.0-98.0) fL MCH (27.0-32.0) pg MCHC (31.0-37.0) g/dL RDW Std Deviation (28.0-62.0) fl RDW Coeff of Kristy (11.0-15.0) % Plt Count (150-400) K/uL MPV (7.40-12.00) fL Neut % (Auto) (48.0-80.0) % Lymph % (Auto) (16.0-40.0) % Pepin % (Auto) (0.0-15.0) % Eos % (Auto) (0.0-7.0) % Baso % (Auto) (0.0-1.5) % Neut # (Auto) (1.4-5.7) K/uL Lymph # (Auto) (0.6-2.4) K/uL Pepin # (Auto) (0.0-0.8) K/uL Eos # (Auto) (0.0-0.7) K/uL Baso # (Auto) (0.0-0.1) K/uL Nucleated RBC % /100WBC Nucleated RBCs # K/uL Sodium (136-146) mmol/L Potassium (3.5-5.1) mmol/L Chloride (98-110) mmol/L Carbon Dioxide (21-31) mmol/L BUN (6.0-23.0) mg/dL Creatinine (0.6-1.5) mg/dL Est Cr Clr Drug Dosing mL/min Estimated GFR (MDRD) ml/min Glucose (60-110) mg/dL Calcium (8.8-10.8) mg/dL Magnesium (1.5-2.3) mEq/L Ferritin 190 (24-336) ng/mL Blood Type O POSITIVE Antibody Screen NEGATIVE Crossmatch See Detail See Detail Tx Rx Implicated Unit 1 [id number] Unit 1 Component RBC Pre-Trans Vis Hemolysis NEGATIVE Pre-Trans Icterus NEGATIVE Post-Trans Blood Type O POSITIVE Post-Tx Visible Hemolys NEGATIVE Post-Trans Icterus NEGATIVE Post-Trans JASSI Poly NEGATIVE Reaction Interpretation NON-HEM TRANSF RX 10/14/16 10/15/16 10/15/16 Range/Units 15:56 05:14 05:14 WBC 9.31 (4.0-11.0) K/uL RBC 3.16 L (4.50-5.90) M/uL Hgb 7.8 L 8.6 L (13.0-17.0) g/dL Hct 23.9 L 26.6 L (38.0-50.0) % MCV 84.2 (80.0-98.0) fL MCH 27.2 (27.0-32.0) pg MCHC 32.3 (31.0-37.0) g/dL RDW Std Deviation 50.7 (28.0-62.0) fl RDW Coeff of Kritsy 17 H (11.0-15.0) % Plt Count 356 (150-400) K/uL MPV 8.90 (7.40-12.00) fL Neut % (Auto) 72.1 (48.0-80.0) % Lymph % (Auto) 18.4 (16.0-40.0) % Pepin % (Auto) 9.1 (0.0-15.0) % Eos % (Auto) 0.3 (0.0-7.0) % Baso % (Auto) 0.1 (0.0-1.5) % Neut # (Auto) 6.7 H (1.4-5.7) K/uL Lymph # (Auto) 1.7 (0.6-2.4) K/uL Pepin # (Auto) 0.9 H (0.0-0.8) K/uL Eos # (Auto) 0.0 (0.0-0.7) K/uL Baso # (Auto) 0.0 (0.0-0.1) K/uL Nucleated RBC % 0.0 /100WBC Nucleated RBCs # 0 K/uL Sodium 131 L (136-146) mmol/L Potassium 4.1 (3.5-5.1) mmol/L Chloride 96 L (98-110) mmol/L Carbon Dioxide 25 (21-31) mmol/L BUN 12 (6.0-23.0) mg/dL Creatinine 0.9 (0.6-1.5) mg/dL Est Cr Clr Drug Dosing 76.37 mL/min Estimated GFR (MDRD) > 60.0 ml/min Glucose 128 H (60-110) mg/dL Calcium 7.8 L (8.8-10.8) mg/dL Magnesium 1.7 (1.5-2.3) mEq/L Ferritin (24-336) ng/mL Blood Type Antibody Screen Crossmatch Tx Rx Implicated Unit 1 Unit 1 Component Pre-Trans Vis Hemolysis Pre-Trans Icterus Post-Trans Blood Type Post-Tx Visible Hemolys Post-Trans Icterus Post-Trans JASSI Poly Reaction Interpretation Satish Results last 24 hrs: Microbiology 10/14/16 13:52 Aerobic Blood Culture - Preliminary Blood - Venous - Lab Draw NO GROWTH AFTER 1 DAY Anaerobic Blood Culture - Preliminary NO GROWTH AFTER 1 DAY 10/14/16 13:39 Aerobic Blood Culture - Preliminary Blood - Venous NO GROWTH AFTER 1 DAY Anaerobic Blood Culture - Preliminary NO GROWTH AFTER 1 DAY 10/15/16 06:30 Stool Occult Blood (SATISH) - Final Stool / Feces Med Orders - Current: Current Medications Acetaminophen (Tylenol) 650 mg PO Q6H PRN PRN Reason: Fever Last Admin: 10/15/16 11:17 Dose: 650 mg Hydrocodone Bitart/Acetaminophen ([place] 325-5 Mg) 1 tab PO QID PRN PRN Reason: Pain Last Admin: 10/13/16 16:16 Dose: 1 tab Azithromycin (Zithromax) 250 mg PO Q24H [facility] Last Admin: 10/15/16 08:30 Dose: 250 mg Furosemide (Lasix) 40 mg IVPUSH .ONETIME [facility] Furosemide (Lasix) 40 mg IVPUSH BID@1030,2000 [facility] Stop: 10/15/16 20:01 Last Admin: 10/15/16 11:11 Dose: 40 mg Pantoprazole Sodium 80 mg/ (Sodium Chloride) 100 mls @ 10 mls/hr IV Q10H [facility] Last Admin: 10/15/16 10:05 Dose: 10 mls/hr Levothyroxine Sodium (Levothyroxine) 150 mcg PO ACBREAKFAST [facility] Last Admin: 10/15/16 06:36 Dose: 150 mcg Metoprolol Tartrate (Lopressor) 25 mg PO Q12HR [facility] Last Admin: 10/15/16 08:30 Dose: 25 mg Potassium Chloride (Klor-Con M20) 40 meq PO BID [facility] Last Admin: 10/15/16 08:31 Dose: 40 meq Discontinued Medications Acetaminophen (Tylenol) 650 mg PO NOW ONE Stop: 10/14/16 16:56 Last Admin: 10/14/16 17:35 Dose: 650 mg Azithromycin (Zithromax) 500 mg PO Q24H ONE Stop: 10/14/16 07:57 Last Admin: 10/14/16 08:15 Dose: 500 mg Diphenhydramine HCl (Benadryl) 25 mg PO ONETIME ONE Stop: 10/14/16 12:31 Last Admin: 10/14/16 12:32 Dose: 25 mg Diphenhydramine HCl (Benadryl) 50 mg PO ONETIME ONE Stop: 10/14/16 16:56 Last Admin: 10/14/16 17:35 Dose: 50 mg Diphenhydramine HCl (Benadryl) 50 mg PO ONETIME ONE Stop: 10/15/16 14:01 Fentanyl (Sublimaze) Confirm Administered Dose 100 mcg .ROUTE .STK-MED ONE Stop: 10/13/16 07:18 Furosemide (Lasix) 40 mg IVPUSH NOW ONE Stop: 10/13/16 20:01 Last Admin: 10/13/16 20:28 Dose: 40 mg Furosemide (Lasix) 40 mg IVPUSH NOW ONE Stop: 10/14/16 10:31 Last Admin: 10/14/16 11:49 Dose: 40 mg Furosemide (Lasix) 40 mg IVPUSH ONCALL ONE Stop: 10/14/16 16:01 Furosemide (Lasix) 20 mg IVPUSH ONETIME ONE Stop: 10/14/16 22:01 Last Admin: 10/14/16 22:02 Dose: 20 mg Lactated Ringer's (Ringers, Lactated) 1,000 mls @ 125 mls/hr IV ASDIRECTED [facility] Last Admin: 10/13/16 08:40 Dose: 125 mls/hr Pantoprazole Sodium 80 mg/ (Sodium Chloride) 20 mls @ 80 mls/hr IV ONETIME ONE Stop: 10/13/16 16:18 Last Admin: 10/13/16 17:00 Dose: 80 mls/hr Magnesium Sulfate 2 gm/ Premix 50 mls @ 50 mls/hr IV ONETIME ONE Stop: 10/13/16 19:25 Last Infusion: 10/13/16 20:27 Dose: Infused Magnesium Sulfate 2 gm/ Premix 50 mls @ 50 mls/hr IV ONETIME ONE Stop: 10/14/16 08:48 Last Admin: 10/14/16 08:10 Dose: 50 mls/hr Lidocaine (Xylocaine-Mpf 2%) Confirm Administered Dose 5 ml .ROUTE .STK-MED ONE Stop: 10/13/16 07:18 Potassium Chloride (Klor-Con M20) 40 meq PO BIDMEALS [facility] Last Admin: 10/14/16 08:09 Dose: 40 meq Propofol (Diprivan 20 Ml) Confirm Administered Dose 400 mg .ROUTE .K-MED ONE Stop: 10/13/16 07:18 - Exam Quality Assessment: DVT prophylaxis (scd's) General: alert, oriented, cooperative, no acute distress Lungs: Clear to auscultation, Normal respiratory effort Cardiovascular: Regular Rate, Regular Rhythm Abdomen: bowel sounds present, soft, no tenderness, no distension Extremities: no calf tenderness, edema (+1 pitting edema in the lower extremities bilaterally with left greater than right.) Peripheral Pulses: 2+: radial (L), radial (R) Skin: warm, dry, intact Neurological: no new focal deficit Psy/Mental Status: alert, normal affect, normal mood - Problem List & Annotations (1) Bilateral lower extremity edema SNOMED Code(s): 197424338 Code(s): R60.0 - LOCALIZED EDEMA Status: Acute (2) Tachycardia SNOMED Code(s): 4627518 Code(s): R00.0 - TACHYCARDIA, UNSPECIFIED Status: Acute (3) Hypothyroidism SNOMED Code(s): 34407089 Code(s): E03.9 - HYPOTHYROIDISM, UNSPECIFIED Status: Chronic Qualifiers: Hypothyroidism type: unspecified Qualified Code(s): E03.9 - Hypothyroidism , unspecified (4) Anemia SNOMED Code(s): 718096206 Code(s): D64.9 - ANEMIA, UNSPECIFIED Status: Acute Qualifiers: Anemia type: unspecified type Qualified Code(s): D64.9 - Anemia, unspecified - Problem List Review Problem List Initiated/Reviewed/Updated: Yes - Plan Plan:: This 71 year old male admitted with bilateral lower leg edema, anemia and tachycardia 1. Bilateral lower leg edema: -Edema is significantly improved in the lower extremities. The edema in the left lower extremity is greater than the right lower extremity. Patient has been diuresed 2.6 L since admission. -Continue with Lasix 40 mg IV twice a day. Daily BMP to monitor kidney function and electrolytes. -Echocardiogram showing ejection fraction of 55-60%. 2. Tachycardia: -Tachycardia has resolved. -Continue to monitor on telemetry. -Metoprolol 25 mg twice a day has been added by cardiology. -Patient continues to be followed by cardiology. 3. Anemia: -normochromic anemia. Hemoccult x2 negative. -Continue Protonix gtt. -Hemoglobin today is 8.6. Admission hemoglobin was 8.5. another unit of packed red blood cells was ordered but this will be held given that the patient had a reaction to the first unit that was transfused and that has asymptomatic iron deficiency anemia. I believe his hemoglobin may even be higher than 8.6 given that he is fluid overloaded and the current hemoglobin level may be dilutional. -Will need EGD and colonoscopy as outpatient to evaluate anemia further. 4. Hypothyroid: -Continue current dose of levothyroxine. 5. Hyponatremia: -Maybe secondary to potential CHF, monitor. Sodium is stable at 131 today. 6. Developing pneumonia/atelectasis: -L basilar atelectasis noted on CXR -Continue with IV azithromycin and Rocephin. Patient has been afebrile. He has not required supplemental oxygen. -White blood cell count is within normal limits. VTE: SCDs only secondary to low hemoglobin. Dispo: 1-2 days pending improvement <Cristóbal Carvalho - Last Filed: 10/16/16 15:52> - General Info Admission Dx/Problem (Free Text): I was present with the resident during history and examination. I discussed the case with the resident and agree with the findings and plan as documented in the residents note. - Patient Data Vitals - most recent: Last Vital Signs Temp 37.0 C 10/16/16 08:00 Pulse 91 10/16/16 08:00 Resp 19 10/16/16 08:00 BP 98/53 L 10/16/16 08:32 Pulse Ox 95 10/16/16 08:00 I&O - last 24 hours: Intake & Output 10/16/16 10/16/16 10/16/16 06:59 14:59 22:59 Intake Total 800 665 Output Total 2600 850 Balance -1800 -185 Lab Results last 24 hrs: Laboratory Results - last 24 hr 10/15/16 10/16/16 10/16/16 Range/Units 17:04 06:15 06:15 WBC 10.38 9.53 (4.0-11.0) K/uL RBC 3.64 L 3.30 L (4.50-5.90) M/uL Hgb 9.9 L 8.9 L (13.0-17.0) g/dL Hct 30.9 L 28.0 L (38.0-50.0) % MCV 84.9 84.8 (80.0-98.0) fL MCH 27.2 27.0 (27.0-32.0) pg MCHC 32.0 31.8 (31.0-37.0) g/dL RDW Std Deviation 51.6 51.3 (28.0-62.0) fl RDW Coeff of Kristy 17 H 17 H (11.0-15.0) % Plt Count 383 348 (150-400) K/uL MPV 8.70 8.90 (7.40-12.00) fL Neut % (Auto) 70.7 77.3 (48.0-80.0) % Lymph % (Auto) 19.2 10.9 L (16.0-40.0) % Pepin % (Auto) 9.4 11.4 (0.0-15.0) % Eos % (Auto) 0.5 0.3 (0.0-7.0) % Baso % (Auto) 0.2 0.1 (0.0-1.5) % Neut # (Auto) 7.3 H 7.4 H (1.4-5.7) K/uL Lymph # (Auto) 2.0 1.0 (0.6-2.4) K/uL Pepin # (Auto) 1.0 H 1.1 H (0.0-0.8) K/uL Eos # (Auto) 0.1 0.0 (0.0-0.7) K/uL Baso # (Auto) 0.0 0.0 (0.0-0.1) K/uL Nucleated RBC % 0.0 0.0 /100WBC Nucleated RBCs # 0 0 K/uL Sodium 132 L (136-146) mmol/L Potassium 4.5 (3.5-5.1) mmol/L Chloride 96 L (98-110) mmol/L Carbon Dioxide 25 (21-31) mmol/L BUN 14 (6.0-23.0) mg/dL Creatinine 0.8 (0.6-1.5) mg/dL Est Cr Clr Drug Dosing 85.92 mL/min Estimated GFR (MDRD) > 60.0 ml/min Glucose 100 (60-110) mg/dL Calcium 8.4 L (8.8-10.8) mg/dL Magnesium 1.6 (1.5-2.3) mEq/L Satish Results last 24 hrs: Microbiology 10/14/16 13:52 Aerobic Blood Culture - Preliminary Blood - Venous - Lab Draw NO GROWTH AFTER 2 DAYS Anaerobic Blood Culture - Preliminary NO GROWTH AFTER 2 DAYS 10/14/16 13:39 Aerobic Blood Culture - Preliminary Blood - Venous NO GROWTH AFTER 2 DAYS Anaerobic Blood Culture - Preliminary NO GROWTH AFTER 2 DAYS Med Orders - Current: Current Medications Discontinued Medications Acetaminophen (Tylenol) 650 mg PO Q6H PRN PRN Reason: Fever Last Admin: 10/16/16 08:33 Dose: 650 mg Acetaminophen (Tylenol) 650 mg PO NOW ONE Stop: 10/14/16 16:56 Last Admin: 10/14/16 17:35 Dose: 650 mg Hydrocodone Bitart/Acetaminophen ([place] 325-5 Mg) 1 tab PO QID PRN PRN Reason: Pain Last Admin: 10/15/16 23:10 Dose: 1 tab Azithromycin (Zithromax) 500 mg PO Q24H ONE Stop: 10/14/16 07:57 Last Admin: 10/14/16 08:15 Dose: 500 mg Azithromycin (Zithromax) 250 mg PO Q24H [facility] Last Admin: 10/16/16 08:31 Dose: 250 mg Diphenhydramine HCl (Benadryl) 25 mg PO ONETIME ONE Stop: 10/14/16 12:31 Last Admin: 10/14/16 12:32 Dose: 25 mg Diphenhydramine HCl (Benadryl) 50 mg PO ONETIME ONE Stop: 10/14/16 16:56 Last Admin: 10/14/16 17:35 Dose: 50 mg Diphenhydramine HCl (Benadryl) 50 mg PO ONETIME ONE Stop: 10/15/16 14:01 Last Admin: 10/15/16 15:28 Dose: Not Given Fentanyl (Sublimaze) Confirm Administered Dose 100 mcg .ROUTE .STK-MED ONE Stop: 10/13/16 07:18 Furosemide (Lasix) 40 mg IVPUSH .ONETIME [facility] Furosemide (Lasix) 40 mg IVPUSH NOW ONE Stop: 10/13/16 20:01 Last Admin: 10/13/16 20:28 Dose: 40 mg Furosemide (Lasix) 40 mg IVPUSH NOW ONE Stop: 10/14/16 10:31 Last Admin: 10/14/16 11:49 Dose: 40 mg Furosemide (Lasix) 40 mg IVPUSH ONCALL ONE Stop: 10/14/16 16:01 Furosemide (Lasix) 20 mg IVPUSH ONETIME ONE Stop: 10/14/16 22:01 Last Admin: 10/14/16 22:02 Dose: 20 mg Furosemide (Lasix) 40 mg IVPUSH BID@1030,2000 [facility] Stop: 10/15/16 20:01 Last Admin: 10/15/16 21:51 Dose: 40 mg Furosemide (Lasix) 20 mg IVPUSH NOW ONE Stop: 10/16/16 09:52 Last Admin: 10/16/16 10:02 Dose: 20 mg Lactated Ringer's (Ringers, Lactated) 1,000 mls @ 125 mls/hr IV ASDIRECTED [facility] Last Admin: 10/13/16 08:40 Dose: 125 mls/hr Pantoprazole Sodium 80 mg/ (Sodium Chloride) 100 mls @ 10 mls/hr IV Q10H [facility] Last Admin: 10/16/16 06:16 Dose: 10 mls/hr Pantoprazole Sodium 80 mg/ (Sodium Chloride) 20 mls @ 80 mls/hr IV ONETIME ONE Stop: 10/13/16 16:18 Last Admin: 10/13/16 17:00 Dose: 80 mls/hr Magnesium Sulfate 2 gm/ Premix 50 mls @ 50 mls/hr IV ONETIME ONE Stop: 10/13/16 19:25 Last Infusion: 10/13/16 20:27 Dose: Infused Magnesium Sulfate 2 gm/ Premix 50 mls @ 50 mls/hr IV ONETIME ONE Stop: 10/14/16 08:48 Last Admin: 10/14/16 08:10 Dose: 50 mls/hr Levothyroxine Sodium (Levothyroxine) 150 mcg PO ACBREAKFAST [facility] Last Admin: 10/16/16 06:36 Dose: 150 mcg Lidocaine (Xylocaine-Mpf 2%) Confirm Administered Dose 5 ml .ROUTE .STK-MED ONE Stop: 10/13/16 07:18 Metoprolol Tartrate (Lopressor) 25 mg PO Q12HR [facility] Last Admin: 10/16/16 08:32 Dose: Not Given Potassium Chloride (Klor-Con M20) 40 meq PO BIDMEALS [facility] Last Admin: 10/14/16 08:09 Dose: 40 meq Potassium Chloride (Klor-Con M20) 40 meq PO BID [facility] Last Admin: 10/16/16 08:31 Dose: 40 meq Propofol (Diprivan 20 Ml) Confirm Administered Dose 400 mg .ROUTE .[facility]-MED ONE Stop: 10/13/16 07:18
[2016-10-15] MEDS: Acetaminophen/HYDROcodone 325-5 MG Tab PO PRN ×2 (16:58→23:10)
--- NOTE | 2016-10-15 17:40 | PCM.PN ---
- General Info Date of Service: 10/15/16 Admission Dx/Problem (Free Text): 71M with AT anemia peripheral edema in the setting of CHF Subjective Update: Patient doing better, received PRBC yesterday had some hypotensive episodes last night but be able to complete PRBC, now BP in the normal range. on metoprolol 25 BID, however his oral fluid was almost 4L, he is making good urine , swelling came down - Review of Systems General: Reports: Weakness HEENT: Reports: no symptoms Pulmonary: Reports: shortness of breath Cardiovascular: Reports: No Symptoms Gastrointestinal: Reports: No symptoms Genitourinary: Reports: no symptoms Musculoskeletal: Reports: no symptoms Skin: Reports: other (swelling) Neurological: Reports: No Symptoms - Patient Data Vitals - most recent: Last Vital Signs Temp 36.4 C 10/15/16 15:58 Pulse 81 10/15/16 15:58 Resp 22 H 10/15/16 15:58 BP 113/58 L 10/15/16 15:58 Pulse Ox 97 10/15/16 15:58 Weight - most recent: 80.9 kg I&O - last 24 hours: Intake & Output 10/15/16 10/15/16 10/15/16 06:59 14:59 22:59 Intake Total 2210 Output Total 1925 Balance 285 Lab Results last 24 hrs: Laboratory Results - last 24 hr 10/13/16 10/14/16 10/14/16 Range/Units 14:15 08:19 13:52 WBC (4.0-11.0) K/uL RBC (4.50-5.90) M/uL Hgb (13.0-17.0) g/dL Hct (38.0-50.0) % MCV (80.0-98.0) fL MCH (27.0-32.0) pg MCHC (31.0-37.0) g/dL RDW Std Deviation (28.0-62.0) fl RDW Coeff of Kristy (11.0-15.0) % Plt Count (150-400) K/uL MPV (7.40-12.00) fL Neut % (Auto) (48.0-80.0) % Lymph % (Auto) (16.0-40.0) % [place] % (Auto) (0.0-15.0) % Eos % (Auto) (0.0-7.0) % Baso % (Auto) (0.0-1.5) % Neut # (Auto) (1.4-5.7) K/uL Lymph # (Auto) (0.6-2.4) K/uL [place] # (Auto) (0.0-0.8) K/uL Eos # (Auto) (0.0-0.7) K/uL Baso # (Auto) (0.0-0.1) K/uL Nucleated RBC % /100WBC Nucleated RBCs # K/uL Sodium (136-146) mmol/L Potassium (3.5-5.1) mmol/L Chloride (98-110) mmol/L Carbon Dioxide (21-31) mmol/L BUN (6.0-23.0) mg/dL Creatinine (0.6-1.5) mg/dL Est Cr Clr Drug Dosing mL/min Estimated GFR (MDRD) ml/min Glucose (60-110) mg/dL Calcium (8.8-10.8) mg/dL Magnesium (1.5-2.3) mEq/L Ferritin 190 (24-336) ng/mL Blood Type O POSITIVE Antibody Screen NEGATIVE Crossmatch See Detail See Detail Tx Rx Implicated Unit 1 [id number] Unit 1 Component RBC Pre-Trans Vis Hemolysis NEGATIVE Pre-Trans Icterus NEGATIVE Post-Trans Blood Type O POSITIVE Post-Tx Visible Hemolys NEGATIVE Post-Trans Icterus NEGATIVE Post-Trans JASSI Poly NEGATIVE Reaction Interpretation NON-HEM TRANSF RX 10/15/16 10/15/16 10/15/16 Range/Units 05:14 05:14 17:04 WBC 9.31 10.38 (4.0-11.0) K/uL RBC 3.16 L 3.64 L (4.50-5.90) M/uL Hgb 8.6 L 9.9 L (13.0-17.0) g/dL Hct 26.6 L 30.9 L (38.0-50.0) % MCV 84.2 84.9 (80.0-98.0) fL MCH 27.2 27.2 (27.0-32.0) pg MCHC 32.3 32.0 (31.0-37.0) g/dL RDW Std Deviation 50.7 51.6 (28.0-62.0) fl RDW Coeff of Kristy 17 H 17 H (11.0-15.0) % Plt Count 356 383 (150-400) K/uL MPV 8.90 8.70 (7.40-12.00) fL Neut % (Auto) 72.1 70.7 (48.0-80.0) % Lymph % (Auto) 18.4 19.2 (16.0-40.0) % [place] % (Auto) 9.1 9.4 (0.0-15.0) % Eos % (Auto) 0.3 0.5 (0.0-7.0) % Baso % (Auto) 0.1 0.2 (0.0-1.5) % Neut # (Auto) 6.7 H 7.3 H (1.4-5.7) K/uL Lymph # (Auto) 1.7 2.0 (0.6-2.4) K/uL [place] # (Auto) 0.9 H 1.0 H (0.0-0.8) K/uL Eos # (Auto) 0.0 0.1 (0.0-0.7) K/uL Baso # (Auto) 0.0 0.0 (0.0-0.1) K/uL Nucleated RBC % 0.0 0.0 /100WBC Nucleated RBCs # 0 0 K/uL Sodium 131 L (136-146) mmol/L Potassium 4.1 (3.5-5.1) mmol/L Chloride 96 L (98-110) mmol/L Carbon Dioxide 25 (21-31) mmol/L BUN 12 (6.0-23.0) mg/dL Creatinine 0.9 (0.6-1.5) mg/dL Est Cr Clr Drug Dosing 76.37 mL/min Estimated GFR (MDRD) > 60.0 ml/min Glucose 128 H (60-110) mg/dL Calcium 7.8 L (8.8-10.8) mg/dL Magnesium 1.7 (1.5-2.3) mEq/L Ferritin (24-336) ng/mL Blood Type Antibody Screen Crossmatch Tx Rx Implicated Unit 1 Unit 1 Component Pre-Trans Vis Hemolysis Pre-Trans Icterus Post-Trans Blood Type Post-Tx Visible Hemolys Post-Trans Icterus Post-Trans JASSI Poly Reaction Interpretation Satish Results last 24 hrs: Microbiology 10/14/16 13:52 Aerobic Blood Culture - Preliminary Blood - Venous - Lab Draw NO GROWTH AFTER 1 DAY Anaerobic Blood Culture - Preliminary NO GROWTH AFTER 1 DAY 10/14/16 13:39 Aerobic Blood Culture - Preliminary Blood - Venous NO GROWTH AFTER 1 DAY Anaerobic Blood Culture - Preliminary NO GROWTH AFTER 1 DAY 10/15/16 06:30 Stool Occult Blood (SATISH) - Final Stool / Feces Med Orders - Current: Current Medications Acetaminophen (Tylenol) 650 mg PO Q6H PRN PRN Reason: Fever Last Admin: 10/15/16 11:17 Dose: 650 mg Hydrocodone Bitart/Acetaminophen ([place] 325-5 Mg) 1 tab PO QID PRN PRN Reason: Pain Last Admin: 10/15/16 16:58 Dose: 1 tab Azithromycin (Zithromax) 250 mg PO Q24H [facility] Last Admin: 10/15/16 08:30 Dose: 250 mg Furosemide (Lasix) 40 mg IVPUSH .ONETIME [facility] Furosemide (Lasix) 40 mg IVPUSH BID@1030,2000 [facility] Stop: 10/15/16 20:01 Last Admin: 10/15/16 11:11 Dose: 40 mg Pantoprazole Sodium 80 mg/ (Sodium Chloride) 100 mls @ 10 mls/hr IV Q10H [facility] Last Admin: 10/15/16 10:05 Dose: 10 mls/hr Levothyroxine Sodium (Levothyroxine) 150 mcg PO ACBREAKFAST [facility] Last Admin: 10/15/16 06:36 Dose: 150 mcg Metoprolol Tartrate (Lopressor) 25 mg PO Q12HR [facility] Last Admin: 10/15/16 08:30 Dose: 25 mg Potassium Chloride (Klor-Con M20) 40 meq PO BID [facility] Last Admin: 10/15/16 08:31 Dose: 40 meq Discontinued Medications Acetaminophen (Tylenol) 650 mg PO NOW ONE Stop: 10/14/16 16:56 Last Admin: 10/14/16 17:35 Dose: 650 mg Azithromycin (Zithromax) 500 mg PO Q24H ONE Stop: 10/14/16 07:57 Last Admin: 10/14/16 08:15 Dose: 500 mg Diphenhydramine HCl (Benadryl) 25 mg PO ONETIME ONE Stop: 10/14/16 12:31 Last Admin: 10/14/16 12:32 Dose: 25 mg Diphenhydramine HCl (Benadryl) 50 mg PO ONETIME ONE Stop: 10/14/16 16:56 Last Admin: 10/14/16 17:35 Dose: 50 mg Diphenhydramine HCl (Benadryl) 50 mg PO ONETIME ONE Stop: 10/15/16 14:01 Last Admin: 10/15/16 15:28 Dose: Not Given Fentanyl (Sublimaze) Confirm Administered Dose 100 mcg .ROUTE .STK-MED ONE Stop: 10/13/16 07:18 Furosemide (Lasix) 40 mg IVPUSH NOW ONE Stop: 10/13/16 20:01 Last Admin: 10/13/16 20:28 Dose: 40 mg Furosemide (Lasix) 40 mg IVPUSH NOW ONE Stop: 10/14/16 10:31 Last Admin: 10/14/16 11:49 Dose: 40 mg Furosemide (Lasix) 40 mg IVPUSH ONCALL ONE Stop: 10/14/16 16:01 Furosemide (Lasix) 20 mg IVPUSH ONETIME ONE Stop: 10/14/16 22:01 Last Admin: 10/14/16 22:02 Dose: 20 mg Lactated Ringer's (Ringers, Lactated) 1,000 mls @ 125 mls/hr IV ASDIRECTED [facility] Last Admin: 10/13/16 08:40 Dose: 125 mls/hr Pantoprazole Sodium 80 mg/ (Sodium Chloride) 20 mls @ 80 mls/hr IV ONETIME ONE Stop: 10/13/16 16:18 Last Admin: 10/13/16 17:00 Dose: 80 mls/hr Magnesium Sulfate 2 gm/ Premix 50 mls @ 50 mls/hr IV ONETIME ONE Stop: 10/13/16 19:25 Last Infusion: 10/13/16 20:27 Dose: Infused Magnesium Sulfate 2 gm/ Premix 50 mls @ 50 mls/hr IV ONETIME ONE Stop: 10/14/16 08:48 Last Admin: 10/14/16 08:10 Dose: 50 mls/hr Lidocaine (Xylocaine-Mpf 2%) Confirm Administered Dose 5 ml .ROUTE .STK-MED ONE Stop: 10/13/16 07:18 Potassium Chloride (Klor-Con M20) 40 meq PO BIDMEALS ANJALI Last Admin: 10/14/16 08:09 Dose: 40 meq Propofol (Diprivan 20 Ml) Confirm Administered Dose 400 mg .ROUTE .STK-MED ONE Stop: 10/13/16 07:18 - Exam General: alert, oriented HEENT: Pupils equal, Pupils reactive Neck: supple Lungs: Rales, Rhonchi Cardiovascular: Regular Rate, Regular Rhythm Abdomen: bowel sounds present, soft (Male) Exam: No hernia Back Exam: normal inspection Extremities: edema EKG INTERPRETATION Rhythm: NSR - Problem List Review Problem List Initiated/Reviewed/Updated: Yes - My Orders Last 24 Hours: My Active Orders 10/15/16 10:30 Furosemide [Lasix] 40 mg IVPUSH BID@1030,199910/15/16 Lunch Fluid Restriction [DIET] - Plan Plan:: This 71 year old male admitted with bilateral lower leg edema, anemia and tachycardia 1. congestive HF, echo showed preserved EF 55-60% he got IV lasix 40 IV q 12 hours, continue metoprolol 25 BID. weight daily, salt limitation, will limit oral fluid to 1.5L 2. anemia: Hb 8 stable still need work up for anemia 3. tachycardia: most likely AT,now in SR 4. PNA per hospitalist
[2016-10-16] MEDS: Pantoprazole 80 MG in Sodium Chloride 0.9% 100 ML IV SCH (06:16)
[2016-10-16] MEDS: Levothyroxine 150 MCG Tab PO SCH (06:36)
[2016-10-16 06:58] LABS: CHLORIDE,CL 96 mmol/L (98-110); SODIUM,NA 132 mmol/L (136-146)
[2016-10-16] MEDS: Azithromycin 250 MG Tab PO SCH (08:31)
[2016-10-16] MEDS: Potassium Chloride 20 MEQ Tab.ER PO SCH (08:31)
[2016-10-16] MEDS: Metoprolol Tartrate 25 MG Tab PO SCH (08:32)
[2016-10-16] MEDS: Acetaminophen 325 MG Tab PO PRN (08:33)
[2016-10-16 08:34] VITALS: BP 98/53
[2016-10-16] MEDS ORDERED: Furosemide 40 MG/4 ML VIAL IVPUSH ONE (09:51)
--- NOTE | 2016-10-16 14:23 | ECHO ---
EXAM DATE: 10/14/16 The echocardiogram report can be seen in this patient's EMR (Electronic Medical Record) in the Reports Section. MANISH
--- NOTE | 2016-10-19 17:10 | PCM.DCSUM1 ---
<Anup Bell - Last Filed: 10/19/16 17:26> Discharge Summary - Hospital Course Free Text/Narrative:: Admission diagnoses: #1. Bilateral lower extremity edema #2. Anemia #3. Tachycardia Discharge diagnoses: #1. Bilateral lower extremity edema, improved #2. Iron deficiency anemia, improved #3. Tachycardia, improved #4. Pneumonia 71-year-old male that was admitted with bilateral lower extremity edema, anemia and tachycardia. Patient was about to undergo a colonoscopy when it was found that he was tachycardic on EKG and he was subsequently admitted for further workup. Patient received multiple doses of IV Lasix for his lower extremity edema which did improve during admission. In terms of his tachycardia, serial troponins were negative. Cardiology was consulted and started the patient on metoprolol 25 mg twice a day. His heart rate was adequately controlled with this medication throughout his admission. Telemetry showed no signs of atrial fibrillation or flutter. Patient denied any chest pain during admission. Patient was also found to have normochromic anemia and did have one black stool during admission. Admission hemoglobin was 8.5 and did drop down to 7.8. He was transfused 2 units of packed red blood cells but experienced a reaction to the transfusion developing a fever and became tachycardic. The transfusion was stopped and the patient's fever and tachycardia resolved. His hemoglobin did reach a high of 9.9 and on discharge was 8.9. He was started on a Protonix drip and had no further black stools during admission. Followup lab showed the patient to be iron deficient. Peripheral smear was ordered and results are pending. Hemoccult was negative x2. General surgery suggested that secondary to the patient's low hemoglobin that he had an endoscopy and colonoscopy as an outpatient once he is able to followup with surgery prior to the procedure being done. Patient also developed a pneumonia during admission with his white blood cell count remaining within normal limits throughout admission. He was started on azithromycin and Rocephin and transitioned over to by mouth azithromycin at the end of admission. He did not require supplemental O2 during admission. At time of discharge the patient was tolerating oral intake, ambulating without problems, voiding appropriately and denied any lightheadedness or dizziness. - Discharge Data Discharge Date: 10/16/16 Discharge Disposition: Home, Self-Care 01 Condition: Good - Discharge Diagnosis/Problem(s) (1) Bilateral lower extremity edema SNOMED Code(s): 327270031 ICD Code: R60.0 - LOCALIZED EDEMA Status: Acute (2) Tachycardia SNOMED Code(s): 0411469 ICD Code: R00.0 - TACHYCARDIA, UNSPECIFIED Status: Acute (3) Hypothyroidism SNOMED Code(s): 09751723 ICD Code: E03.9 - HYPOTHYROIDISM, UNSPECIFIED Status: Chronic Qualifiers: Hypothyroidism type: unspecified Qualified Code(s): E03.9 - Hypothyroidism , unspecified (4) Anemia SNOMED Code(s): 410164046 ICD Code: D64.9 - ANEMIA, UNSPECIFIED Status: Acute Qualifiers: Anemia type: unspecified type Qualified Code(s): D64.9 - Anemia, unspecified - Patient Summary/Data Consults: Consultations 10/13/16 15:16 Consult to Physician [CONS] Routine 10/13/16 15:38 Consult to Physician [CONS] Routine - Patient Instructions Diet: Regular Diet as Tolerated Activity: No Strenuous Activities Driving: Do Not Drive Showering/Bathing: May Shower Notify Provider of: Fever, Nausea and/or Vomiting - Discharge Plan Prescriptions/Med Rec: Azithromycin [Zithromax] 250 mg PO Q24H #5 tablet Furosemide [Lasix] 40 mg PO DAILY #30 tablet Metoprolol Tartrate [Lopressor] 25 mg PO BID #60 tablet Home Medications: Home Meds Hydrocodone/Acetaminophen [Hydrocodon-Acetaminophen 5-325] 1 tab PO QID PRN [History] Levothyroxine Sodium [Synthroid] 150 mcg PO DAILY 10/09/16 [History] Acetaminophen [Tylenol] 650 mg PO DAILY PRN 10/13/16 [History] Azithromycin [Zithromax] 250 mg PO Q24H #5 tablet 10/16/16 [Rx] Furosemide [Lasix] 40 mg PO DAILY #30 tablet 10/16/16 [Rx] Metoprolol Tartrate [Lopressor] 25 mg PO BID #60 tablet 10/16/16 [Rx] Patient Handouts: Colonoscopy, [id number], Furosemide tablets, Metoprolol tablets, Anemia, Nonspecific, Azithromycin tablets, Heart Failure, [id number] Referrals: [facility] [Outside] [facility] [Outside] José Miguel Thrasher MD [Physician] - 10/21/16 10:30 am Júnior Contreras MD [Primary Care Provider] - 10/22/16 10:00 am - Discharge Summary/Plan Comment DC Time >30 min.: No Discharge Summary/Plan Comment: Admission diagnoses: #1. Bilateral lower extremity edema #2. Anemia #3. Tachycardia Discharge diagnoses: #1. Bilateral lower extremity edema, improved #2. Iron deficiency anemia, improved #3. Tachycardia, improved #4. Pneumonia 71-year-old male that was admitted with bilateral lower extremity edema, anemia and tachycardia. Patient was about to undergo a colonoscopy when it was found that he was tachycardic on EKG and he was subsequently admitted for further workup. Patient received multiple doses of IV Lasix for his lower extremity edema which did improve during admission. In terms of his tachycardia, serial troponins were negative. Cardiology was consulted and started the patient on metoprolol 25 mg twice a day. His heart rate was adequately controlled with this medication throughout his admission. Telemetry showed no signs of atrial fibrillation or flutter. Patient denied any chest pain during admission. Patient was also found to have normochromic anemia and did have one black stool during admission. Admission hemoglobin was 8.5 and did drop down to 7.8. He was transfused 2 units of packed red blood cells but experienced a reaction to the transfusion developing a fever and became tachycardic. The transfusion was stopped and the patient's fever and tachycardia resolved. His hemoglobin did reach a high of 9.9 and on discharge was 8.9. He was started on a Protonix drip and had no further black stools during admission. Followup lab showed the patient to be iron deficient. Peripheral smear was ordered and results are pending. Hemoccult was negative x2. General surgery suggested that secondary to the patient's low hemoglobin that he had an endoscopy and colonoscopy as an outpatient once he is able to followup with surgery prior to the procedure being done. Patient also developed a pneumonia during admission with his white blood cell count remaining within normal limits throughout admission. He was started on azithromycin and Rocephin and transitioned over to by mouth azithromycin at the end of admission. He did not require supplemental O2 during admission. At time of discharge the patient was tolerating oral intake, ambulating without problems, voiding appropriately and denied any lightheadedness or dizziness. Discharge plan: #1. Patient prescribed metoprolol 25 mg twice a day for heart rate control. #2. Patient prescribed Lasix 40 mg daily for bilateral lower extremity edema. #3. Patient prescribed azithromycin 250 mg daily for 5 days for pneumonia. #4. Patient will followup with our children's librarian Dr. Thrasher on October 21, 2016. #5. Patient will followup with his PCP, Dr. Contreras, on October 21, 2016. #6. It is recommended that when the patient is considered stable that he undergo an EGD and colonoscopy. - Patient Data Vitals - Most Recent: Last Vital Signs Temp 98.6 F 10/16/16 08:00 Pulse 91 10/16/16 08:00 Resp 19 10/16/16 08:00 BP 98/53 L 10/16/16 08:32 Pulse Ox 95 10/16/16 08:00 Weight - Most Recent: 77.111 kg IRASEMA Results - Last 24 hrs: Microbiology 10/14/16 13:52 Aerobic Blood Culture - Final Blood - Venous - Lab Draw NO GROWTH AFTER 5 DAYS Anaerobic Blood Culture - Final NO GROWTH AFTER 5 DAYS 10/14/16 13:39 Aerobic Blood Culture - Final Blood - Venous NO GROWTH AFTER 5 DAYS Anaerobic Blood Culture - Final NO GROWTH AFTER 5 DAYS Med Orders - Current: Current Medications Discontinued Medications Acetaminophen (Tylenol) 650 mg PO Q6H PRN PRN Reason: Fever Last Admin: 10/16/16 08:33 Dose: 650 mg Acetaminophen (Tylenol) 650 mg PO NOW ONE Stop: 10/14/16 16:56 Last Admin: 10/14/16 17:35 Dose: 650 mg Hydrocodone Bitart/Acetaminophen ([place] 325-5 Mg) 1 tab PO QID PRN PRN Reason: Pain Last Admin: 10/15/16 23:10 Dose: 1 tab Azithromycin (Zithromax) 500 mg PO Q24H ONE Stop: 10/14/16 07:57 Last Admin: 10/14/16 08:15 Dose: 500 mg Azithromycin (Zithromax) 250 mg PO Q24H [facility] [place] Last Admin: 10/16/16 08:31 Dose: 250 mg Diphenhydramine HCl (Benadryl) 25 mg PO ONETIME ONE Stop: 10/14/16 12:31 Last Admin: 10/14/16 12:32 Dose: 25 mg Diphenhydramine HCl (Benadryl) 50 mg PO ONETIME ONE Stop: 10/14/16 16:56 Last Admin: 10/14/16 17:35 Dose: 50 mg Diphenhydramine HCl (Benadryl) 50 mg PO ONETIME ONE Stop: 10/15/16 14:01 Last Admin: 10/15/16 15:28 Dose: Not Given Fentanyl (Sublimaze) Confirm Administered Dose 100 mcg .ROUTE .STK-MED ONE Stop: 10/13/16 07:18 Furosemide (Lasix) 40 mg IVPUSH .ONETIME ANJALI Furosemide (Lasix) 40 mg IVPUSH NOW ONE Stop: 10/13/16 20:01 Last Admin: 10/13/16 20:28 Dose: 40 mg Furosemide (Lasix) 40 mg IVPUSH NOW ONE Stop: 10/14/16 10:31 Last Admin: 10/14/16 11:49 Dose: 40 mg Furosemide (Lasix) 40 mg IVPUSH ONCALL ONE Stop: 10/14/16 16:01 Furosemide (Lasix) 20 mg IVPUSH ONETIME ONE Stop: 10/14/16 22:01 Last Admin: 10/14/16 22:02 Dose: 20 mg Furosemide (Lasix) 40 mg IVPUSH BID@1030,2000 ANJALI Stop: 10/15/16 20:01 Last Admin: 10/15/16 21:51 Dose: 40 mg Furosemide (Lasix) 20 mg IVPUSH NOW ONE Stop: 10/16/16 09:52 Last Admin: 10/16/16 10:02 Dose: 20 mg Lactated Ringer's (Ringers, Lactated) 1,000 mls @ 125 mls/hr IV ASDIRECTED [facility] [place] Last Admin: 10/13/16 08:40 Dose: 125 mls/hr Pantoprazole Sodium 80 mg/ (Sodium Chloride) 100 mls @ 10 mls/hr IV Q10H [facility] [place] Last Admin: 10/16/16 06:16 Dose: 10 mls/hr Pantoprazole Sodium 80 mg/ (Sodium Chloride) 20 mls @ 80 mls/hr IV ONETIME ONE Stop: 10/13/16 16:18 Last Admin: 10/13/16 17:00 Dose: 80 mls/hr Magnesium Sulfate 2 gm/ Premix 50 mls @ 50 mls/hr IV ONETIME ONE Stop: 10/13/16 19:25 Last Infusion: 10/13/16 20:27 Dose: Infused Magnesium Sulfate 2 gm/ Premix 50 mls @ 50 mls/hr IV ONETIME ONE Stop: 10/14/16 08:48 Last Admin: 10/14/16 08:10 Dose: 50 mls/hr Levothyroxine Sodium (Levothyroxine) 150 mcg PO ACBREAKFAST [facility] [place] Last Admin: 10/16/16 06:36 Dose: 150 mcg Lidocaine (Xylocaine-Mpf 2%) Confirm Administered Dose 5 ml .ROUTE .STK-MED ONE Stop: 10/13/16 07:18 Metoprolol Tartrate (Lopressor) 25 mg PO Q12HR [facility] [place] Last Admin: 10/16/16 08:32 Dose: Not Given Potassium Chloride (Klor-Con M20) 40 meq PO BIDMEALS [facility] [place] Last Admin: 10/14/16 08:09 Dose: 40 meq Potassium Chloride (Klor-Con M20) 40 meq PO BID [facility] [place] Last Admin: 10/16/16 08:31 Dose: 40 meq Propofol (Diprivan 20 Ml) Confirm Administered Dose 400 mg .ROUTE .STK-MED ONE Stop: 10/13/16 07:18 *Q Meaningful Use (DIS) - VTE *Q VTE Criteria *Q: VTE Pharmacological Contraindications *Q: Risk of Bleeding - Stroke *Q Stroke Criteria *Q: - AMI *Q AMI Criteria *Q: <Cristóbal Carvalho - Last Filed: 10/20/16 10:16> Discharge Summary - Hospital Course Brief History: I was present with the resident during history and examination. I discussed the case with the resident and agree with the findings and plan as documented in the residents note. - Patient Summary/Data Consults: Consultations 10/13/16 15:16 Consult to Physician [CONS] Routine 10/13/16 15:38 Consult to Physician [CONS] Routine - Patient Data Vitals - Most Recent: Last Vital Signs Temp 37.0 C 10/16/16 08:00 Pulse 91 10/16/16 08:00 Resp 19 10/16/16 08:00 BP 98/53 L 10/16/16 08:32 Pulse Ox 95 10/16/16 08:00 IRASEMA Results - Last 24 hrs: Microbiology 10/14/16 13:52 Aerobic Blood Culture - Final Blood - Venous - Lab Draw NO GROWTH AFTER 5 DAYS Anaerobic Blood Culture - Final NO GROWTH AFTER 5 DAYS 10/14/16 13:39 Aerobic Blood Culture - Final Blood - Venous NO GROWTH AFTER 5 DAYS Anaerobic Blood Culture - Final NO GROWTH AFTER 5 DAYS Med Orders - Current: Current Medications Discontinued Medications Acetaminophen (Tylenol) 650 mg PO Q6H PRN PRN Reason: Fever Last Admin: 10/16/16 08:33 Dose: 650 mg Acetaminophen (Tylenol) 650 mg PO NOW ONE Stop: 10/14/16 16:56 Last Admin: 10/14/16 17:35 Dose: 650 mg Hydrocodone Bitart/Acetaminophen ([place] 325-5 Mg) 1 tab PO QID PRN PRN Reason: Pain Last Admin: 10/15/16 23:10 Dose: 1 tab Azithromycin (Zithromax) 500 mg PO Q24H ONE Stop: 10/14/16 07:57 Last Admin: 10/14/16 08:15 Dose: 500 mg Azithromycin (Zithromax) 250 mg PO Q24H ANJALI Last Admin: 10/16/16 08:31 Dose: 250 mg Diphenhydramine HCl (Benadryl) 25 mg PO ONETIME ONE Stop: 10/14/16 12:31 Last Admin: 10/14/16 12:32 Dose: 25 mg Diphenhydramine HCl (Benadryl) 50 mg PO ONETIME ONE Stop: 10/14/16 16:56 Last Admin: 10/14/16 17:35 Dose: 50 mg Diphenhydramine HCl (Benadryl) 50 mg PO ONETIME ONE Stop: 10/15/16 14:01 Last Admin: 10/15/16 15:28 Dose: Not Given Fentanyl (Sublimaze) Confirm Administered Dose 100 mcg .ROUTE .STK-MED ONE Stop: 10/13/16 07:18 Furosemide (Lasix) 40 mg IVPUSH .ONETIME ANJALI Furosemide (Lasix) 40 mg IVPUSH NOW ONE Stop: 10/13/16 20:01 Last Admin: 10/13/16 20:28 Dose: 40 mg Furosemide (Lasix) 40 mg IVPUSH NOW ONE Stop: 10/14/16 10:31 Last Admin: 10/14/16 11:49 Dose: 40 mg Furosemide (Lasix) 40 mg IVPUSH ONCALL ONE Stop: 10/14/16 16:01 Furosemide (Lasix) 20 mg IVPUSH ONETIME ONE Stop: 10/14/16 22:01 Last Admin: 10/14/16 22:02 Dose: 20 mg Furosemide (Lasix) 40 mg IVPUSH BID@1030,2000 [facility] Stop: 10/15/16 20:01 Last Admin: 10/15/16 21:51 Dose: 40 mg Furosemide (Lasix) 20 mg IVPUSH NOW ONE Stop: 10/16/16 09:52 Last Admin: 10/16/16 10:02 Dose: 20 mg Lactated Ringer's (Ringers, Lactated) 1,000 mls @ 125 mls/hr IV ASDIRECTED [facility] [place] Last Admin: 10/13/16 08:40 Dose: 125 mls/hr Pantoprazole Sodium 80 mg/ (Sodium Chloride) 100 mls @ 10 mls/hr IV Q10H [facility] [place] Last Admin: 10/16/16 06:16 Dose: 10 mls/hr Pantoprazole Sodium 80 mg/ (Sodium Chloride) 20 mls @ 80 mls/hr IV ONETIME ONE Stop: 10/13/16 16:18 Last Admin: 10/13/16 17:00 Dose: 80 mls/hr Magnesium Sulfate 2 gm/ Premix 50 mls @ 50 mls/hr IV ONETIME ONE Stop: 10/13/16 19:25 Last Infusion: 10/13/16 20:27 Dose: Infused Magnesium Sulfate 2 gm/ Premix 50 mls @ 50 mls/hr IV ONETIME ONE Stop: 10/14/16 08:48 Last Admin: 10/14/16 08:10 Dose: 50 mls/hr Levothyroxine Sodium (Levothyroxine) 150 mcg PO ACBREAKFAST [facility] [place] Last Admin: 10/16/16 06:36 Dose: 150 mcg Lidocaine (Xylocaine-Mpf 2%) Confirm Administered Dose 5 ml .ROUTE .STK-MED ONE Stop: 10/13/16 07:18 Metoprolol Tartrate (Lopressor) 25 mg PO Q12HR [facility] [place] Last Admin: 10/16/16 08:32 Dose: Not Given Potassium Chloride (Klor-Con M20) 40 meq PO BIDMEALS [facility] [place] Last Admin: 10/14/16 08:09 Dose: 40 meq Potassium Chloride (Klor-Con M20) 40 meq PO BID [facility] [place] Last Admin: 10/16/16 08:31 Dose: 40 meq Propofol (Diprivan 20 Ml) Confirm Administered Dose 400 mg .ROUTE .STK-MED ONE Stop: 10/13/16 07:18 *Q Meaningful Use (DIS) - VTE *Q VTE Criteria *Q: - Stroke *Q Stroke Criteria *Q: - AMI *Q AMI Criteria *Q:
== END 2016-10-16 10:25 | disposition home or self-care (01) | DRG 308 ==
LOC: MW.SDS 08:20 → UNDOADMIN 14:15 → MW.MS 14:15 → INTOOBSV 15:27 → OBSVTOIN 10-14 12:09
PROVIDERS: ADMIT Internal Medicine; ATTEND Surgery
PROC: 30233N1 Transfusion of Nonautologous Red Blood Cells into Peripheral Vein, Percutaneous Approach (ICD-10-PCS; principal; 2016-10-14)
DX: R00.0 Tachycardia, unspecified (principal); J18.9 Pneumonia, unspecified organism; I50.30 Unspecified diastolic (congestive) heart failure; E87.1 Hypo-osmolality and hyponatremia; M54.9 Dorsalgia, unspecified; M79.605 Pain in left leg; M79.604 Pain in right leg; R60.0 Localized edema; F32.9 Major depressive disorder, single episode, unspecified; F17.200 Nicotine dependence, unspecified, uncomplicated; Z88.0 Allergy status to penicillin; Z79.899 Other long term (current) drug therapy; D50.9 Iron deficiency anemia, unspecified; E03.9 Hypothyroidism, unspecified; T80.89XA Other complications following infusion, transfusion and therapeutic injection, initial encounter; R50.9 Fever, unspecified; Z87.891 Personal history of nicotine dependence
CPT/HCPCS: 36415 ×2; 36430; 71020; 80048; 80053; 82272; 82607; 82728; 82746; 83550; 83735 ×2; 83880; 84443; 84484 ×3; 85025 ×2; 85045; 86850; 86900; 86901; 86920; 86921; 86922; 88104; 93005; 93306; A9270 ×5; C9113 ×3; J1940 ×2; J3475 ×2; J7030 ×2; J7120; P9016; 85014; 85018; 87040; 96361; 96365; 96366; 96368; 96375; 96376; 97161-GP; G0378; J2704; J3010

== ENCOUNTER → 2016-10-21 | Outpatient (CLI) | payer BC, MEDICARE | END | disposition home or self-care (01) | LOC: MW.CHIM 13:40 | PROVIDERS: ATTEND Internal Medicine | DX: R55 Syncope and collapse (principal) | CPT/HCPCS: 93005 ==

== ENCOUNTER 2017-03-01 13:47 | Inpatient (IN) | payer BC, MEDICARE ==
[2017-03-01] MEDS ORDERED: Sodium Chloride 0.9% 2.5 ML Syringe FLUSH PRN (13:53)
[2017-03-01] MEDS ORDERED: Sodium Chloride 0.9% 10 ML Syringe FLUSH PRN (13:53)
--- NOTE | 2017-03-01 13:59 | EDM.PDOC ---
ED HPI GENERAL MEDICAL PROBLEM - General Stated Complaint: AMBULANCE Time Seen by Provider: 03/01/17 13:51 - History of Present Illness INITIAL COMMENTS - FREE TEXT/NARRATIVE: HISTORY AND PHYSICAL: History of present illness: The patient is a 71-year-old male who follows at [facility] and has a history of hypertension hypothyroidism who presents via EMS after saying that he rolled out of his bed at about 4 AM and was laying on his back and could not get up. He complains mostly of thoracic back pain and coccygeal pain and says that he does not have any chest pain shortness of breath abdominal pain nausea or vomiting. He said he had normal day yesterday and ate fine and that he is hungry currently. According to the family he came to check on him this morning and found him laying on the floor where he had been since 4 AM. The patient said that yesterday he had a normal day without any fever chills or any other systemic complaints and ate and drank normally with normal bowel movements and normal urination. He said he saw her provider recently and he got change any of his medications. When asked the patient why he wasn't able to get up after he rolled out of bed he said he did not know. He thought that he felt weak. He denies any extremity pain or head pain or neck pain and only of the upper thoracic pain in the lumbar pain. He has no neurosensory changes that he can quantitate. The patient says he has a history of gout in his right knee but he has no knee pain as a result of the fall Review of systems: As per history of present illness and below otherwise all systems reviewed and negative. Past medical history: As per history of present illness and as reviewed below otherwise noncontributory. Surgical history: As per history of present illness and as reviewed below otherwise noncontributory. Social history: No reported history of drug or alcohol abuse. Family history: As per history of present illness and as reviewed below otherwise noncontributory. Physical exam: Gen.: Well-developed thin man who is nontoxic and speaks clearly and easily in the ED. He arrives on backboard and c-collar. Throughout the course of my evaluation the backboard was removed the c-collar was maintained HEENT: Atraumatic, normocephalic, pupils reactive, negative for conjunctival pallor or scleral icterus, mucous membranes moist, throat clear, neck supple, nontender, trachea midline. There are no midline step-offs in his defects of the cervical spine Lungs: Clear to auscultation, breath sounds equal bilaterally, chest nontender. No worker breathing or sensory muscle use Heart: S1S2, regular, negative for clicks, rubs, or JVD. Abdomen: Soft, nondistended, nontender. Negative for masses or hepatosplenomegaly. Negative for costovertebral tenderness. Pelvis: Stable nontender. No lateral hip tenderness Genitourinary: Deferred. Rectal: Deferred. Extremities: Atraumatic, negative for cords or calf pain. Neurovascular unremarkable. Full range of motion without any defects or deficits and no palpable bony deformities throughout the extremities. There is no pedal edema or leg asymmetry is no shortening of the legs Neuro: Awake, alert, oriented. Cranial nerves II through XII unremarkable. Gait was not assessed Motor and sensory unremarkable throughout with motor being globally 4/5 throughout. Exam nonfocal. Skin: There is chronic skin changes of the forearms bilaterally but there are no new abrasions ecchymosis or soft tissue changes seen throughout and turgor is slightly diminished. Back: There are no midline step-offs in his defects of the thoracic or lumbar spine and there is some diffuse thoracic paraspinal discomfort as well as lumbar discomfort without any soft tissue changes such as erythema ecchymosis or abrasions Diagnostics: EKG CBC CMP INR CPK lactic acid troponin TSH UA urine culture if indicated chest x-ray x-ray of the thoracic and lumbar spine CT scan of the head and C- spine Therapeutics: IV O2 monitor gentle IV fluids Family is at bedside and I discussed all testing results with the patient and them. They tell me that he had lithotripsy done at [facility] in [place] several weeks ago and his hemoglobin at that time was 11. On our computer the patient had an admission in the spring and was diagnosed with iron deficiency anemia and his hemoglobin at the time of discharge was similar to 2 days. The family is also telling me that he has "terrible back pain" that he has been dealing with which is not new or different. They say that they have noticed some gradual progression of weakness but today was more profound. They are aware of the need for observation admission to clear the CPK supplement the potassium and address the anemia if it progresses or changes. These also note that the patient has not had any black or bloody stools or bleeding in the urine or bleeding gums or easily visibility. 1650: Case was discussed with Dr. Carvalho our hospitalist who agrees to inpatient admission for monitoring of labs potassium supplementation IV fluids. He would like a magnesium ordered which I have done and he will follow that up. Family and patient are comfortable with this care plan Impression: Minor fall with prolonged immobilized states and rhabdomyolysis, hypokalemia and generalized weakness, anemia with history of iron deficiency anemia, chronic back pain acute on chronic Definitive disposition and diagnosis as appropriate pending reevaluation and review of above. Right Middle Knee Pain Score (Numeric/FACES): 4 - Related Data Allergies Allergy/AdvReac Type Severity Reaction Status Date / Time Penicillins Allergy Swelling Verified 10/09/16 10:54 Home Meds: Home Meds Hydrocodone/Acetaminophen [Hydrocodon-Acetaminophen 5-325] 1 tab PO QID PRN [History] Levothyroxine Sodium [Synthroid] 150 mcg PO DAILY 10/09/16 [History] Acetaminophen [Tylenol] 650 mg PO DAILY PRN 10/13/16 [History] Azithromycin [Zithromax] 250 mg PO Q24H #5 tablet 10/16/16 [Rx] Metoprolol Tartrate [Lopressor] 25 mg PO BID #60 tablet 10/16/16 [Rx] Furosemide [Lasix] 40 mg PO BID 03/01/17 [History] predniSONE [predniSONE] 5 mg PO 03/01/17 [History] Past Medical History HEENT History: Reports: None Other HEENT History: wears glasses, has hearing aides but does not wear them Cardiovascular History: Reports: Other (See Below) Respiratory History: Reports: Sleep Apnea Gastrointestinal History: Reports: None Genitourinary History: Reports: Renal Calculus Musculoskeletal History: Reports: Fracture, Osteoarthritis Other Musculoskeletal History: left ankle and right wrist Neurological History: Reports: None Psychiatric History: Reports: None Other Psychiatric History: states is depressed over chronic leg pain x2 months Endocrine/Metabolic History: Reports: Hypothyroidism Hematologic History: Reports: None Immunologic History: Reports: None Oncologic (Cancer) History: Reports: None Dermatologic History: Reports: None - Infectious Disease History Infectious Disease History: Reports: None - Past Surgical History HEENT Surgical History: Reports: None Musculoskeletal Surgical History: Reports: None Social & Family History - Family History Family Medical History: Noncontributory - Tobacco Use Smoking Status *Q: Never Smoker Years of Tobacco use: 50 Packs/Tins Daily: 0.5 Second Hand Smoke Exposure: No - Caffeine Use Caffeine Use: Reports: None - Recreational Drug Use Recreational Drug Use: No Drug Use in Last 12 Months: No ED ROS GENERAL - Review of Systems Review Of Systems: ROS reveals no pertinent complaints other than HPI. ED EXAM, GENERAL - Physical Exam Exam: See Below (See dictation) Course - Vital Signs Last Recorded V/S: Last Vital Signs Temp 36.3 C 03/01/17 16:04 Pulse 76 03/01/17 16:04 Resp 16 03/01/17 16:04 BP 88/44 L 03/01/17 16:04 Pulse Ox 97 03/01/17 16:04 - Orders/Labs/Meds Orders: Active Orders 24 hr Category Date Time Status Patient Status [ADT] Stat ADT 03/01/17 16:53 Ordered Cardiac Monitoring [RC] . DIRECTED Care 03/01/17 13:51 Active EKG Documentation Completion [RC] STAT Care 03/01/17 13:52 Active Oxygen Therapy, ED [RC] ASDIRECTED Care 03/01/17 13:51 Active Pulse Oximetry [RC] ASDIRECTED Care 03/01/17 13:52 Active MAGNESIUM [CHEM] Stat Lab 03/01/17 16:52 Ordered UA W/MICROSCOPIC [URIN] Stat Lab 03/01/17 13:52 Ordered Potassium Chloride 20 meq Med 03/01/17 14:45 Active Sodium Chloride 0.9% [Normal Saline] 250 ml IV ASDIRECTED Sodium Chloride 0.9% [Normal Saline] 1,000 ml Med 03/01/17 14:00 Active IV ASDIRECTED Sodium Chloride 0.9% [Saline Flush] Med 03/01/17 13:53 Active 10 ml FLUSH ASDIRECTED PRN Sodium Chloride 0.9% [Saline Flush] Med 03/01/17 13:53 Active 2.5 ml FLUSH ASDIRECTED PRN Saline Lock Insert [OM.PC] Stat Oth 03/01/17 13:51 Ordered Medication Orders Sodium Chloride (Normal Saline) 1,000 mls @ 83 mls/hr IV ASDIRECTED ANJALI Last Infusion: 03/01/17 14:58 Dose: 999 mls/hr Infusion: 03/01/17 14:27 Dose: 83 mls/hr Admin: 03/01/17 14:12 Dose: 999 mls/hr Potassium Chloride 20 meq/ (Sodium Chloride) 260 mls @ 130 mls/hr IV ASDIRECTED ANJALI Last Admin: 03/01/17 16:06 Dose: 130 mls/hr Sodium Chloride (Saline Flush) 10 ml FLUSH ASDIRECTED PRN PRN Reason: Keep Vein Open Last Admin: 03/01/17 14:14 Dose: 10 ml Sodium Chloride (Saline Flush) 2.5 ml FLUSH ASDIRECTED PRN PRN Reason: Keep Vein Open Last Admin: 03/01/17 14:13 Dose: 2.5 ml Labs: Laboratory Tests 03/01/17 03/01/17 03/01/17 Range/Units 14:07 14:07 14:07 WBC 5.50 (4.0-11.0) K/uL RBC 2.98 L (4.50-5.90) M/uL Hgb 8.8 L (13.0-17.0) g/dL Hct 26.6 L (38.0-50.0) % MCV 89.3 (80.0-98.0) fL MCH 29.5 (27.0-32.0) pg MCHC 33.1 (31.0-37.0) g/dL RDW Std Deviation 68.7 H (28.0-62.0) fl RDW Coeff of Kristy 22 H (11.0-15.0) % Plt Count 326 (150-400) K/uL MPV 9.00 (7.40-12.00) fL Add Manual Diff YES Neutrophils % (Manual) 42 L (48.0-80.0) % Band Neutrophils % 20 % Lymphocytes % (Manual) 29 (16.0-40.0) % Monocytes % (Manual) 8 (0.0-15.0) % Basophils % (Manual) 1 (0.0-1.5) % Nucleated RBC % 0.0 /100WBC Absolute Seg Neuts 2.3 Band Neutrophils # 1.1 Lymphocytes # (Manual) 1.6 Monocytes # (Manual) 0.4 Basophils # (Manual) 0 Nucleated RBCs # 0 K/uL INR 1.04 (0.86-1.11) Lactate 2.2 H (0.20-2.00) mmol/L Sodium (136-146) mmol/L Potassium (3.5-5.1) mmol/L Chloride (98-110) mmol/L Carbon Dioxide (21-31) mmol/L BUN (6.0-23.0) mg/dL Creatinine (0.6-1.5) mg/dL Est Cr Clr Drug Dosing mL/min Estimated GFR (MDRD) ml/min Glucose (60-110) mg/dL Calcium (8.8-10.8) mg/dL Total Bilirubin (0.1-1.5) mg/dL AST (5-40) IU/L ALT (8-54) IU/L Alkaline Phosphatase (40-150) Creatine Kinase (9-236) IU/L Troponin I (0.0-0.29) NG/ML Total Protein (6.0-8.0) g/dL Albumin (3.4-4.8) g/dL Globulin (2.0-3.5) g/dL Albumin/Globulin Ratio (1.3-2.8) TSH 3rd Generation (0.47-5.0) uIU/mL Urine Color Urine Appearance Urine pH (5.0-8.0) Ur Specific [place] (1.001-1.035) Urine Protein (NEGATIVE) mg/dL Urine Glucose (UA) (NEGATIVE) mg/dL Urine Ketones (NEGATIVE) mg/dL Urine Occult Blood (NEGATIVE) Urine Nitrite (NEGATIVE) Urine Bilirubin (NEGATIVE) Urine Urobilinogen (<2.0) EU/dL Ur Leukocyte Esterase (NEGATIVE) 03/01/17 03/01/17 03/01/17 Range/Units 14:07 14:07 16:40 WBC (4.0-11.0) K/uL RBC (4.50-5.90) M/uL Hgb (13.0-17.0) g/dL Hct (38.0-50.0) % MCV (80.0-98.0) fL MCH (27.0-32.0) pg MCHC (31.0-37.0) g/dL RDW Std Deviation (28.0-62.0) fl RDW Coeff of Kristy (11.0-15.0) % Plt Count (150-400) K/uL MPV (7.40-12.00) fL Add Manual Diff Neutrophils % (Manual) (48.0-80.0) % Band Neutrophils % % Lymphocytes % (Manual) (16.0-40.0) % Monocytes % (Manual) (0.0-15.0) % Basophils % (Manual) (0.0-1.5) % Nucleated RBC % /100WBC Absolute Seg Neuts Band Neutrophils # Lymphocytes # (Manual) Monocytes # (Manual) Basophils # (Manual) Nucleated RBCs # K/uL INR (0.86-1.11) Lactate (0.20-2.00) mmol/L Sodium 133 L (136-146) mmol/L Potassium 2.8 L (3.5-5.1) mmol/L Chloride 94 L (98-110) mmol/L Carbon Dioxide 30 (21-31) mmol/L BUN 25 H (6.0-23.0) mg/dL Creatinine 1.0 (0.6-1.5) mg/dL Est Cr Clr Drug Dosing 68.74 mL/min Estimated GFR (MDRD) > 60.0 ml/min Glucose 127 H (60-110) mg/dL Calcium 8.6 L (8.8-10.8) mg/dL Total Bilirubin 1.1 (0.1-1.5) mg/dL AST 47 H (5-40) IU/L ALT 17 (8-54) IU/L Alkaline Phosphatase 69 (40-150) Creatine Kinase 1422 H (9-236) IU/L Troponin I 0.19 (0.0-0.29) NG/ML Total Protein 6.0 (6.0-8.0) g/dL Albumin 2.6 L (3.4-4.8) g/dL Globulin 3.4 (2.0-3.5) g/dL Albumin/Globulin Ratio 0.8 L (1.3-2.8) TSH 3rd Generation 0.55 (0.47-5.0) uIU/mL Urine Color DARK YELLOW Urine Appearance CLEAR Urine pH 5.5 (5.0-8.0) Ur Specific [place] 1.015 (1.001-1.035) Urine Protein 30 (NEGATIVE) mg/dL Urine Glucose (UA) NEGATIVE (NEGATIVE) mg/dL Urine Ketones NEGATIVE (NEGATIVE) mg/dL Urine Occult Blood LARGE H (NEGATIVE) Urine Nitrite NEGATIVE (NEGATIVE) Urine Bilirubin NEGATIVE (NEGATIVE) Urine Urobilinogen 0.2 (<2.0) EU/dL Ur Leukocyte Esterase NEGATIVE (NEGATIVE) Meds: Medications Generic Name Dose Route Start Last Admin Trade Name Freq PRN Reason Stop Dose Admin Sodium Chloride 1,000 mls @ 83 mls/hr 03/01/17 14:00 03/01/17 14:58 Normal Saline IV 999 mls/hr ASDIRECTED ANJALI Infusion Potassium Chloride 20 meq/ 260 mls @ 130 mls/hr 03/01/17 14:45 03/01/17 16:06 Sodium Chloride IV 130 mls/hr ASDIRECTED ANJALI Administration Sodium Chloride 10 ml 03/01/17 13:53 03/01/17 14:14 Saline Flush FLUSH 10 ml ASDIRECTED PRN Administration Keep Vein Open Sodium Chloride 2.5 ml 03/01/17 13:53 03/01/17 14:13 Saline Flush FLUSH 2.5 ml ASDIRECTED PRN Administration Keep Vein Open Discontinued Medications Generic Name Dose Route Start Last Admin Trade Name Freq PRN Reason Stop Dose Admin Potassium Chloride 40 meq 03/01/17 14:39 03/01/17 16:06 Klor-Con M20 PO 03/01/17 14:40 40 meq ONETIME ONE Administration Departure - Departure Time of Disposition: 16:55 Disposition: Admitted As Inpatient 67 Condition: Good Clinical Impression: Rhabdomyolysis, Prolonged immobilization, Dehydration - Discharge Information Referrals: PCP,None [Primary Care Provider] - - My Orders Last 24 Hours: My Active Orders 03/01/17 13:51 Cardiac Monitoring [RC] . DIRECTED Oxygen Therapy, ED [RC] ASDIRECTED Saline Lock Insert [OM.PC] Stat 03/01/17 13:52 EKG Documentation Completion [RC] STAT Pulse Oximetry [RC] ASDIRECTED UA W/MICROSCOPIC [URIN] Stat 03/01/17 13:53 Sodium Chloride 0.9% [Saline Flush] 10 ml FLUSH ASDIRECTED PRN Sodium Chloride 0.9% [Saline Flush] 2.5 ml FLUSH ASDIRECTED PRN 03/01/17 14:00 Sodium Chloride 0.9% [Normal Saline] 1,000 ml IV ASDIRECTED 03/01/17 14:45 Potassium Chloride 20 meq Sodium Chloride 0.9% [Normal Saline] 250 ml IV ASDIRECTED 03/01/17 16:52 MAGNESIUM [CHEM] Stat 03/01/17 16:53 Patient Status [ADT] Stat - Assessment/Plan Last 24 Hours: My Active Orders 03/01/17 13:51 Cardiac Monitoring [RC] . DIRECTED Oxygen Therapy, ED [RC] ASDIRECTED Saline Lock Insert [OM.PC] Stat 03/01/17 13:52 EKG Documentation Completion [RC] STAT Pulse Oximetry [RC] ASDIRECTED UA W/MICROSCOPIC [URIN] Stat 03/01/17 13:53 Sodium Chloride 0.9% [Saline Flush] 10 ml FLUSH ASDIRECTED PRN Sodium Chloride 0.9% [Saline Flush] 2.5 ml FLUSH ASDIRECTED PRN 03/01/17 14:00 Sodium Chloride 0.9% [Normal Saline] 1,000 ml IV ASDIRECTED 03/01/17 14:45 Potassium Chloride 20 meq Sodium Chloride 0.9% [Normal Saline] 250 ml IV ASDIRECTED 03/01/17 16:52 MAGNESIUM [CHEM] Stat 03/01/17 16:53 Patient Status [ADT] Stat
[2017-03-01] MEDS: Sodium Chloride 0.9% 1,000 ML IV SCH (14:12)
[2017-03-01 14:34] LABS: CHLORIDE,CL 94 mmol/L (98-110); SODIUM,NA 133 mmol/L (136-146)
[2017-03-01] MEDS ORDERED: Potassium Chloride 20 MEQ Tab.ER PO ONE (14:39)
--- NOTE | 2017-03-01 15:31 | CT ---
EXAMINATION: Non contrast CT head. Coronal and sagittal reformats. HISTORY: Pain FINDINGS: No evidence of intra or extra axial hemorrhage, mass, midline shift, hydrocephalus or edema. Trace p eriventricular white matter lucencies noted. No hypoattenuation changes in the major vascular territories to suggest acute infarct. No abnormal intracranial calcifications are detected. No evidence of substantial vascular calcificat ions. There is opacification of the right sphenoid sinus. The mastoid air cells are clear. The orbits and g lobes are symmetric. Pituitary fossa appears unremarkable. Calvarium is intact. No evidence of skull fracture. IMPRESSION: 1. No acute intracranial findings. 2. Right sphenoid sinus disease. 3. Mild small vessel ischemic changes.
--- NOTE | 2017-03-01 15:33 | CT ---
EXAMINATION: CT cervical spine HISTORY: Pain COMPARISON: None TECHNIQUE: Axial CT images obtained through the cervical spine without contrast. Coronal and sagittal reconstructions obtained. FINDINGS: There is mild reversal of the normal cervical lordosis. The vertebral body heights appear m aintained. Disc space narrowing with partial vertebral body fusion is noted at C3-C4. Otherwise the s pace narrowing with osteophyte disc complex is noted within the cervical spine from C4 to C7. Facet h ypertrophic changes are noted. No fracture or acute osseous abnormality. Bone mineralization appears normal. Emphysematous changes noted within the lung apices. No cervical lymphadenopathy. IMPRESSION: 1. Moderate degenerative changes without acute findings.
--- NOTE | 2017-03-01 16:01 | CR ---
EXAMINATION: Two-view chest (PA and Lateral views). HISTORY: Shortness of breath. FINDINGS: The trachea is midline. The cardiomediastinal silhouette is within normal limits. No pulmonary infilt rates, effusions or pneumothorax. Chronic interstitial prominence is noted. Degenerative changes noted within the right shoulder with generalized osteopenia. IMPRESSION: Chronic interstitial changes without an acute cardiopulmonary finding.
--- NOTE | 2017-03-01 16:05 | CR ---
EXAMINATION: Thoracic and lumbar spine HISTORY: Fall COMPARISON: MRI dated 09/23/2016 TECHNIQUE: AP and lateral views of the thoracic and lumbar spine FINDINGS: There is moderate S-shaped curvature of the thoracolumbar spine. The vertebral body heights appear grossly maintained. Moderate marginal osteophytes are noted osseous structures appear osteope charline. The SI joints are symmetric. The iliopectineal lines are intact. IMPRESSION: 1. Degenerative changes without acute findings. 2. Osteopenia.
[2017-03-01] MEDS ORDERED: Docusate Sodium 100 MG Cap PO PRN (17:17)
[2017-03-01] MEDS ORDERED: Morphine 2 MG/ML Syringe IVPUSH PRN (17:17)
[2017-03-01] MEDS ORDERED: Magnesium Sulfate/Water 2 GM in Premix Bag 1 BAG IV ONE (17:24)
--- NOTE | 2017-03-01 17:26 | PCM.HP ---
H&P History of Present Illness - General Date of Service: 03/01/17 Admit Problem/Dx: Rhabdomyolysis, hypokalemia, dehydration Source of Information: Patient, Family History Limitations: Reports: No Limitations - History of Present Illness Initial Comments - Free Text/Narative: The patient is a 71-year-old gentleman who had presented to the emergency department today via ambulance out of concern for falling out of bed. The patient reports that sometime during the night he had fallen out of bed and he had yandy undisturbed for at least 8-10 hours. The patient was found and he was helped up. The patient said that he had been normal otherwise. The patient has a history of hypertension and is taking medication for this. The patient says that he does not know how long he was out and he denies any head trauma. He has a bruise on his arm that is new. He has no pain in his extremities, neck and his back or lumbar area. The patient has been in his usual state of health and he is asymptomatic at this time. Onset of Symptoms: Reports: Unknown/Unsure Duration of Symptoms: Reports: Day(s): Location: Reports: Generalized Improves with: Reports: None Worsens with: Reports: None Associated Symptoms: Reports: Syncope Right Middle Knee Pain Score (Numeric/FACES): 4 - Related Data Allergies/Adverse Reactions: Allergies Allergy/AdvReac Type Severity Reaction Status Date / Time Penicillins Allergy Swelling Verified 10/09/16 10:54 Home Medications: Home Meds Hydrocodone/Acetaminophen [Hydrocodon-Acetaminophen 5-325] 1 tab PO QID PRN [History] Levothyroxine Sodium [Synthroid] 150 mcg PO DAILY 10/09/16 [History] Acetaminophen [Tylenol] 650 mg PO DAILY PRN 10/13/16 [History] Azithromycin [Zithromax] 250 mg PO Q24H #5 tablet 10/16/16 [Rx] Metoprolol Tartrate [Lopressor] 25 mg PO BID #60 tablet 10/16/16 [Rx] Furosemide [Lasix] 40 mg PO BID 03/01/17 [History] predniSONE [predniSONE] 5 mg PO 03/01/17 [History] Past Medical History HEENT History: Reports: None Other HEENT History: wears glasses, has hearing aides but does not wear them Cardiovascular History: Reports: Hypertension, Other (See Below) Respiratory History: Reports: Sleep Apnea Gastrointestinal History: Reports: None Genitourinary History: Reports: Renal Calculus Musculoskeletal History: Reports: Fracture, Osteoarthritis Other Musculoskeletal History: left ankle and right wrist Neurological History: Reports: None Psychiatric History: Reports: None Other Psychiatric History: states is depressed over chronic leg pain x2 months Endocrine/Metabolic History: Reports: Hypothyroidism Hematologic History: Reports: None Immunologic History: Reports: None Oncologic (Cancer) History: Reports: None Dermatologic History: Reports: None - Infectious Disease History Infectious Disease History: Reports: None - Past Surgical History HEENT Surgical History: Reports: None Musculoskeletal Surgical History: Reports: None Social & Family History - Family History Family Medical History: Noncontributory - Tobacco Use Smoking Status *Q: Never Smoker Years of Tobacco use: 50 Packs/Tins Daily: 0.5 Used Tobacco, but Quit: No Second Hand Smoke Exposure: No - Caffeine Use Caffeine Use: Reports: None - Recreational Drug Use Recreational Drug Use: No Drug Use in Last 12 Months: No - Living Situation & Occupation Living situation: Reports: Alone Occupation: Retired H&P Review of Systems - Review of Systems: Review Of Systems: See Below General: Reports: Weakness HEENT: Reports: No Symptoms Pulmonary: Reports: No Symptoms Cardiovascular: Reports: No Symptoms Gastrointestinal: Reports: No Symptoms Genitourinary: Reports: No Symptoms Musculoskeletal: Reports: No Symptoms Skin: Reports: No Symptoms Psychiatric: Reports: No Symptoms Neurological: Reports: No Symptoms Hematologic/Lymphatic: Reports: No Symptoms Immunologic: Reports: No Symptoms Exam - Exam Exam: See Below - Vital Signs Vital Signs: Last Vital Signs Temp 36.3 C 03/01/17 16:04 Pulse 75 03/01/17 16:45 Resp 12 03/01/17 16:45 BP 83/46 L 03/01/17 16:45 Pulse Ox 99 03/01/17 16:45 Weight: 73.936 kg - Exam Quality Assessment: Supplemental Oxygen General: Alert, Oriented, Cooperative HEENT: Conjunctiva Clear, Nares Patent. No: Mucosa Moist & [place] (Dry) Neck: Supple, Trachea Midline Lungs: Clear to Auscultation, Normal Respiratory Effort Cardiovascular: Regular Rate, Regular Rhythm GI/Abdominal Exam: Normal Bowel Sounds, Soft, No Distention Back Exam: Normal Inspection, Decreased Range of Motion Extremities: No Pedal Edema Skin: Warm, Dry Neuro Extensive - Mental Status: Alert, Oriented x3, Normal Mood/Affect Psychiatric: Alert, Normal Affect, Normal Mood - Patient Data Result Diagrams: 03/01/17 14:07 03/01/17 14:07 *Q Meaningful Use (ADM) - VTE *Q VTE Criteria *Q: VTE Mechanical Contraindications *Q: At Risk for Falls - VTE Risk Assess *Q Each Risk Factor Represents 1 Point: None Total Score 1 Point Risk Factors: 0 Each Risk Factor Represents 2 Points: Age 60 - 74 Years Total Score 2 Point Risk Factors: 2 - Stroke *Q Stroke Criteria *Q: - AMI *Q AMI Criteria *Q: - Problem List (1) Rhabdomyolysis SNOMED Code(s): 608470780 ICD Code: M62.82 - RHABDOMYOLYSIS Status: Acute Priority: High Current Visit: Yes Qualifiers: Rhabdomyolysis type: traumatic (2) Hypotension SNOMED Code(s): 07962068 ICD Code: I95.9 - HYPOTENSION, UNSPECIFIED Status: Acute Priority: High Current Visit: Yes Qualifiers: Hypotension type: orthostatic hypotension Qualified Code(s): I95.1 - Orthostatic hypotension (3) Hypokalemia SNOMED Code(s): 20903541 ICD Code: E87.6 - HYPOKALEMIA Status: Acute Priority: High Current Visit: Yes (4) Hypomagnesemia SNOMED Code(s): 867622616 ICD Code: E83.42 - HYPOMAGNESEMIA Status: Acute Priority: High Current Visit: Yes (5) Dehydration SNOMED Code(s): 12831673 ICD Code: E86.0 - DEHYDRATION Status: Acute Priority: High Current Visit: Yes (6) Anemia SNOMED Code(s): 621989644 ICD Code: D64.9 - ANEMIA, UNSPECIFIED Status: Acute Priority: High Current Visit: Yes Qualifiers: Anemia type: unspecified type Qualified Code(s): D64.9 - Anemia, unspecified Problem List Initiated/Reviewed/Updated: Yes Orders Last 24hrs: Active Orders 24 hr Category Date Time Status Patient Status [ADT] Routine ADT 03/01/17 17:17 Ordered Oxygen Therapy [RC] PRN Care 03/01/17 17:17 Ordered Up With Assistance [RC] ASDIRECTED Care 03/01/17 17:17 Ordered VTE/DVT Education [RC] PER UNIT ROUTINE Care 03/01/17 17:17 Ordered Vaccines to be Administered [RC] PER UNIT ROUTINE Care 03/01/17 17:21 Ordered Vital Signs [RC] Q4H Care 03/01/17 17:17 Ordered Regular Diet [DIET] Diet 03/01/17 Dinner Ordered CBC WITH AUTO DIFF [HEME] AM Lab 03/02/17 05:11 Ordered COMPREHENSIVE METABOLIC PN,CMP [CHEM] AM Lab 03/02/17 05:11 Ordered CREATINE KINASE,CK [CHEM] AM Lab 03/02/17 05:11 Ordered MAGNESIUM [CHEM] AM Lab 03/02/17 05:11 Ordered PHOSPHORUS [CHEM] AM Lab 03/02/17 05:11 Ordered Acetaminophen [Tylenol] Med 03/01/17 17:17 Ordered 650 mg PO Q4H PRN Docusate Sodium [Colace] Med 03/01/17 17:17 Ordered 100 mg PO BID PRN Enoxaparin [Lovenox] Med 03/01/17 17:30 Ordered 30 mg SUBCUT DAILY Levothyroxine Med 03/02/17 09:00 Ordered 150 mcg PO DAILY Magnesium Sulfate/Water [Magnesium Sulfate 2 GM in Med 03/01/17 17:24 Ordered Water 50 ML] 2 gm Premix Bag 1 bag IV ONETIME Metoprolol Tartrate [Lopressor] Med 03/01/17 21:00 Ordered 25 mg PO BID Morphine Med 03/01/17 17:17 Ordered 2 mg IVPUSH Q2H PRN Sodium Chloride 0.9% [Normal Saline] 1,000 ml Med 03/01/17 17:30 Ordered IV ASDIRECTED Sodium Chloride 0.9% with KCl 20 mEq @ 75 mL/Hr (1000 Med 03/01/17 17:30 Ordered mL) NS + KCl 20mEq/L [Normal Saline with 20 mEq KCl] 1,000 ml IV ASDIRECTED oxyCODONE Med 03/01/17 17:17 Ordered 5 mg PO Q4H PRN GM Immunization Reflex [OM.PC] Click To Edit Oth 03/01/17 17:17 Ordered VTE Mechanical Contraindications [AST] Per Unit Routine Oth 03/01/17 17:17 Ordered Resuscitation Status Routine Resus Stat 03/01/17 17:17 Ordered Medication Orders Acetaminophen (Tylenol) 650 mg PO Q4H PRN PRN Reason: Pain (Mild 1-3)/fever Docusate Sodium (Colace) 100 mg PO BID PRN PRN Reason: Constipation Enoxaparin Sodium (Lovenox) 30 mg SUBCUT DAILY [facility] Sodium Chloride (Normal Saline) 1,000 mls @ 83 mls/hr IV ASDIRECTED ANJALI Last Infusion: 03/01/17 14:58 Dose: 999 mls/hr Infusion: 03/01/17 14:27 Dose: 83 mls/hr Admin: 03/01/17 14:12 Dose: 999 mls/hr Potassium Chloride 20 meq/ (Sodium Chloride) 260 mls @ 130 mls/hr IV ASDIRECTED ANJALI Last Admin: 03/01/17 16:06 Dose: 130 mls/hr Sodium Chloride (Normal Saline) 1,000 mls @ 100 mls/hr IV ASDIRECTED [facility] Magnesium Sulfate 2 gm/ Premix 50 mls @ 50 mls/hr IV ONETIME ONE Stop: 03/01/17 18:23 Potassium Chloride/Sodium Chloride (Normal Saline With 20 Meq Kcl) 1,000 mls @ 75 mls/hr IV ASDIRECTED [facility] Levothyroxine Sodium (Levothyroxine) 150 mcg PO DAILY [facility] Metoprolol Tartrate (Lopressor) 25 mg PO BID [facility] Morphine Sulfate (Morphine) 2 mg IVPUSH Q2H PRN PRN Reason: Pain (severe 7-10) Stop: 03/02/17 17:20 Oxycodone HCl (Oxycodone) 5 mg PO Q4H PRN PRN Reason: Pain (moderate 4-6) Sodium Chloride (Saline Flush) 10 ml FLUSH ASDIRECTED PRN PRN Reason: Keep Vein Open Last Admin: 03/01/17 14:14 Dose: 10 ml Sodium Chloride (Saline Flush) 2.5 ml FLUSH ASDIRECTED PRN PRN Reason: Keep Vein Open Last Admin: 03/01/17 14:13 Dose: 2.5 ml Assessment/Plan Comment:: The patient is a 71-year-old gentleman was prone on a carpeted floor undetected for anywhere between 8-10 hours. He has presented with rhabdomyolysis and his CPK is at 1422 international units per liter. The patient for this will be gently rehydrated at 100 mL per hour of normal saline. He'll wake watch very closely for signs of fluid overload has he has used Lasix in the past. This will be discontinued for now. Patient also has exhibited hypokalemia with his potassium at 2.8 mmol per liter. This is been replaced IV. The patient's magnesium is also low and this will be replaced as well. I'm concerned that the patient is anemic currently with a hemoglobin of 8.8 g/dL. It's likely as the patient becomes fluid hydrated that this might drop. He may need to have replacement of blood and blood products. This will be reevaluated. Also the patient's lactate is elevated at 2.2 and this is likely secondary to his dehydrated state. The patient will be admitted observation with telemetry and his antihypertensive medication namely metoprolol will be discontinued for now. He has remained hypotensive and his latest blood pressure was 80/45 mmHg on a monitor and this may be likely to the patient's voluble completed status. Also there was a concern for the patient with his beta ghulam and recently been on azithromycin out of concern for a cardiac type event which had caused him to fall out of bed. This is the reason for the patient being on telemetry. He has also seen a consumer marketing analyst recently. The patient's overall treatment plan will be adjusted as conditions and information indicates.
[2017-03-01] MEDS ORDERED: Sodium Chloride 0.9% 1,000 ML IV SCH (17:30)
[2017-03-01] MEDS ORDERED: NS + KCl 20mEq/L 1,000 ML IV SCH (17:30)
[2017-03-01] MEDS: Enoxaparin 30 MG/0.3 ML Syringe SUBCUT SCH (18:05)
[2017-03-01] MEDS: oxyCODONE 5 MG Tab PO PRN (20:15)
[2017-03-01] MEDS ORDERED: Metoprolol Tartrate 25 MG Tab PO SCH (21:00)
[2017-03-01] MEDS: NS + KCl 20mEq/L 1,000 ML IV SCH (21:02)
[2017-03-02 05:38] LABS: CHLORIDE,CL 100 mmol/L (98-110); SODIUM,NA 133 mmol/L (136-146)
[2017-03-02] MEDS: NS + KCl 20mEq/L 1,000 ML IV SCH (05:46)
[2017-03-02] MEDS ORDERED: Levothyroxine 150 MCG Tab PO SCH (07:30)
[2017-03-02] MEDS: Sodium Chloride 0.9% 1,000 ML IV SCH ×2 (09:00→21:49)
[2017-03-02] MEDS: Enoxaparin 30 MG/0.3 ML Syringe SUBCUT SCH (09:08)
[2017-03-02] MEDS ORDERED: Metoprolol Tartrate 5 MG/5 ML SDV IVPUSH ONE ×2 (09:13→09:30)
[2017-03-02] MEDS ORDERED: Magnesium Sulfate/Water 4 GM in Premix Bag 1 BAG IV ONE (09:15)
--- NOTE | 2017-03-02 09:20 | PCM.PN ---
- General Info Date of Service: 03/02/17 Admission Dx/Problem (Free Text): Rhabdomyolysis, hypokalemia, dehydration Subjective Update: Sitting up in the chair, eating breakfast. Denies any chest pain, SOB or palpitations. Has some pain to his upper shoulders bilaterally and to lower back. Moving from bed to chair was ok with assist of nursing. Functional Status: Reports: Pain Controlled, Tolerating Diet, Ambulating, Urinating - Review of Systems General: Reports: No Symptoms. Denies: Fever Pulmonary: Reports: No Symptoms. Denies: Shortness of Breath, Cough, Sputum Cardiovascular: Reports: No Symptoms. Denies: Chest Pain, Palpitations, Edema Gastrointestinal: Reports: No Symptoms. Denies: Abdominal Pain, Nausea, Vomiting Genitourinary: Reports: No Symptoms Musculoskeletal: Reports: Shoulder Pain (bilaterally), Back Pain Skin: Reports: No Symptoms Neurological: Reports: No Symptoms Psychiatric: Reports: No Symptoms - Patient Data Vitals - Most Recent: Last Vital Signs Temp 100.6 F 03/02/17 08:45 Pulse 105 H 03/02/17 08:45 Resp 16 03/02/17 08:45 BP 109/66 03/02/17 08:45 Pulse Ox 94 L 03/02/17 08:45 Weight - Most Recent: 73.482 kg I&O - Last 24 Hours: Intake & Output 03/01/17 03/02/17 03/02/17 22:59 06:59 14:59 Intake Total 1472 1827 Output Total 420 Balance 1472 1407 Lab Results Last 24 Hours: Laboratory Results - last 24 hr 03/01/17 03/02/17 03/02/17 Range/Units 19:36 00:58 05:05 WBC 4.48 (4.0-11.0) K/uL RBC 2.89 L (4.50-5.90) M/uL Hgb 8.6 L (13.0-17.0) g/dL Hct 25.9 L (38.0-50.0) % MCV 89.6 (80.0-98.0) fL MCH 29.8 (27.0-32.0) pg MCHC 33.2 (31.0-37.0) g/dL RDW Std Deviation 69.8 H (28.0-62.0) fl RDW Coeff of Kristy 22 H (11.0-15.0) % Plt Count 315 (150-400) K/uL MPV 8.90 (7.40-12.00) fL Add Manual Diff YES Neutrophils % (Manual) 45 L (48.0-80.0) % Band Neutrophils % 3 % Lymphocytes % (Manual) 37 (16.0-40.0) % Monocytes % (Manual) 15 (0.0-15.0) % Nucleated RBC % 0.0 /100WBC Absolute Seg Neuts 2.0 Band Neutrophils # 0.1 Lymphocytes # (Manual) 1.7 Monocytes # (Manual) 0.7 Nucleated RBCs # 0 K/uL Lactate 2.3 H 1.5 (0.20-2.00) mmol/L Sodium (136-146) mmol/L Potassium (3.5-5.1) mmol/L Chloride (98-110) mmol/L Carbon Dioxide (21-31) mmol/L BUN (6.0-23.0) mg/dL Creatinine (0.6-1.5) mg/dL Est Cr Clr Drug Dosing mL/min Estimated GFR (MDRD) ml/min Glucose (60-110) mg/dL Calcium (8.8-10.8) mg/dL Phosphorus (2.4-4.7) mg/dL Magnesium (1.5-2.3) mEq/L Total Bilirubin (0.1-1.5) mg/dL AST (5-40) IU/L ALT (8-54) IU/L Alkaline Phosphatase (40-150) Creatine Kinase (9-236) IU/L Total Protein (6.0-8.0) g/dL Albumin (3.4-4.8) g/dL Globulin (2.0-3.5) g/dL Albumin/Globulin Ratio (1.3-2.8) 03/02/17 Range/Units 05:05 WBC (4.0-11.0) K/uL RBC (4.50-5.90) M/uL Hgb (13.0-17.0) g/dL Hct (38.0-50.0) % MCV (80.0-98.0) fL MCH (27.0-32.0) pg MCHC (31.0-37.0) g/dL RDW Std Deviation (28.0-62.0) fl RDW Coeff of Kristy (11.0-15.0) % Plt Count (150-400) K/uL MPV (7.40-12.00) fL Add Manual Diff Neutrophils % (Manual) (48.0-80.0) % Band Neutrophils % % Lymphocytes % (Manual) (16.0-40.0) % Monocytes % (Manual) (0.0-15.0) % Nucleated RBC % /100WBC Absolute Seg Neuts Band Neutrophils # Lymphocytes # (Manual) Monocytes # (Manual) Nucleated RBCs # K/uL Lactate (0.20-2.00) mmol/L Sodium 133 L (136-146) mmol/L Potassium 4.2 (3.5-5.1) mmol/L Chloride 100 (98-110) mmol/L Carbon Dioxide 28 (21-31) mmol/L BUN 18 (6.0-23.0) mg/dL Creatinine 0.7 (0.6-1.5) mg/dL Est Cr Clr Drug Dosing 98.19 mL/min Estimated GFR (MDRD) > 60.0 ml/min Glucose 110 (60-110) mg/dL Calcium 7.8 L (8.8-10.8) mg/dL Phosphorus 1.8 L (2.4-4.7) mg/dL Magnesium 1.4 L (1.5-2.3) mEq/L Total Bilirubin 0.6 (0.1-1.5) mg/dL AST 49 H (5-40) IU/L ALT 21 (8-54) IU/L Alkaline Phosphatase 70 (40-150) Creatine Kinase 865 H (9-236) IU/L Total Protein 5.6 L (6.0-8.0) g/dL Albumin 2.4 L (3.4-4.8) g/dL Globulin 3.2 (2.0-3.5) g/dL Albumin/Globulin Ratio 0.8 L (1.3-2.8) Med Orders - Current: Current Medications Acetaminophen (Tylenol) 650 mg PO Q4H PRN PRN Reason: Pain (Mild 1-3)/fever Docusate Sodium (Colace) 100 mg PO BID PRN PRN Reason: Constipation Enoxaparin Sodium (Lovenox) 30 mg SUBCUT DAILY ANJALI Last Admin: 03/02/17 09:08 Dose: 30 mg Sodium Chloride (Normal Saline) 1,000 mls @ 83 mls/hr IV ASDIRECTED ANJALI Last Infusion: 03/01/17 14:58 Dose: 999 mls/hr Potassium Chloride 20 meq/ (Sodium Chloride) 260 mls @ 130 mls/hr IV ASDIRECTED ANJALI Last Admin: 03/01/17 16:06 Dose: 130 mls/hr Sodium Chloride (Normal Saline) 1,000 mls @ 100 mls/hr IV ASDIRECTED ANJALI Last Admin: 03/02/17 09:00 Dose: 100 mls/hr Magnesium Sulfate 4 gm/ Premix 100 mls @ 50 mls/hr IV ONETIME ONE Stop: 03/02/17 11:14 Levothyroxine Sodium (Levothyroxine) 150 mcg PO ACBREAKFAST ANJALI Last Admin: 03/02/17 06:34 Dose: 150 mcg Metoprolol Tartrate (Lopressor) 5 mg IVPUSH ONETIME ONE Stop: 03/02/17 09:31 Morphine Sulfate (Morphine) 2 mg IVPUSH Q2H PRN PRN Reason: Pain (severe 7-10) Stop: 03/02/17 17:20 Oxycodone HCl (Oxycodone) 5 mg PO Q4H PRN PRN Reason: Pain (moderate 4-6) Last Admin: 03/01/17 20:15 Dose: 5 mg Sodium Chloride (Saline Flush) 10 ml FLUSH ASDIRECTED PRN PRN Reason: Keep Vein Open Last Admin: 03/01/17 14:14 Dose: 10 ml Sodium Chloride (Saline Flush) 2.5 ml FLUSH ASDIRECTED PRN PRN Reason: Keep Vein Open Last Admin: 03/01/17 14:13 Dose: 2.5 ml Sodium Phosphate (Neutra-Phos) 250 mg PO QID ANJALI Discontinued Medications Sodium Chloride (Normal Saline) 1,000 mls @ 100 mls/hr IV ASDIRECTED ANJALI Magnesium Sulfate 2 gm/ Premix 50 mls @ 50 mls/hr IV ONETIME ONE Stop: 03/01/17 18:23 Last Admin: 03/01/17 18:05 Dose: 50 mls/hr Potassium Chloride/Sodium Chloride (Normal Saline With 20 Meq Kcl) 1,000 mls @ 75 mls/hr IV ASDIRECTED ANJALI Last Infusion: 03/01/17 21:01 Dose: 75 mls/hr Potassium Chloride/Sodium Chloride (Normal Saline With 20 Meq Kcl) 1,000 mls @ 100 mls/hr IV ASDIRECTED ANJALI Last Admin: 03/02/17 05:46 Dose: 100 mls/hr Metoprolol Tartrate (Lopressor) 25 mg PO BID ANJALI Metoprolol Tartrate (Lopressor) 5 mg IVPUSH ONETIME ONE Stop: 03/02/17 09:14 Potassium Chloride (Klor-Con M20) 40 meq PO ONETIME ONE Stop: 03/01/17 14:40 Last Admin: 03/01/17 16:06 Dose: 40 meq - Exam General: Alert, Oriented, Cooperative, No Acute Distress Neck: Supple Lungs: Clear to Auscultation, Normal Respiratory Effort Cardiovascular: No Murmurs, Irregular Rhythm, Tachycardia GI/Abdominal Exam: Normal Bowel Sounds, Soft, Non-Tender, No Organomegaly, No Distention, No Abnormal Bruit, No Mass, Pelvis Stable Extremities: Normal Inspection, Normal Range of Motion, Non-Tender, No Pedal Edema, Normal Capillary Refill Neurological: No New Focal Deficit Psy/Mental Status: Alert, Normal Affect, Normal Mood - Problem List & Annotations (1) Rhabdomyolysis SNOMED Code(s): 867814022 Code(s): M62.82 - RHABDOMYOLYSIS Status: Acute Priority: High Current Visit: Yes Qualifiers: Rhabdomyolysis type: traumatic Encounter type: initial encounter Qualified Code(s): T79.6XXA - Traumatic ischemia of muscle, initial encounter (2) Atrial tachycardia SNOMED Code(s): 305398122 Code(s): I47.1 - SUPRAVENTRICULAR TACHYCARDIA Status: Acute Current Visit : Yes (3) Dehydration SNOMED Code(s): 71767229 Code(s): E86.0 - DEHYDRATION Status: Acute Priority: High Current Visit : Yes (4) Hypokalemia SNOMED Code(s): 76411147 Code(s): E87.6 - HYPOKALEMIA Status: Acute Priority: High Current Visit : Yes (5) Hypomagnesemia SNOMED Code(s): 788158976 Code(s): E83.42 - HYPOMAGNESEMIA Status: Acute Priority: High Current Visit: Yes (6) Hypotension SNOMED Code(s): 41540012 Code(s): I95.9 - HYPOTENSION, UNSPECIFIED Status: Acute Priority: High Current Visit: Yes Qualifiers: Hypotension type: orthostatic hypotension Qualified Code(s): I95.1 - Orthostatic hypotension (7) Anemia SNOMED Code(s): 517477308 Code(s): D64.9 - ANEMIA, UNSPECIFIED Status: Chronic Priority: High Current Visit: Yes Qualifiers: Anemia type: unspecified type Qualified Code(s): D64.9 - Anemia, unspecified (8) CHF (congestive heart failure) SNOMED Code(s): 79440520 Code(s): I50.9 - HEART FAILURE, UNSPECIFIED Status: Acute Current Visit: Yes Qualifiers: Congestive heart failure type: diastolic Congestive heart failure chronicity: chronic Qualified Code(s): I50.32 - Chronic diastolic (congestive ) heart failure (9) Hypothyroidism SNOMED Code(s): 29300478 Code(s): E03.9 - HYPOTHYROIDISM, UNSPECIFIED Status: Chronic Current Visit: No Qualifiers: Hypothyroidism type: unspecified Qualified Code(s): E03.9 - Hypothyroidism , unspecified (10) Gout SNOMED Code(s): 54385846 Code(s): M10.9 - GOUT, UNSPECIFIED Status: Chronic Current Visit: Yes - Problem List Review Problem List Initiated/Reviewed/Updated: Yes - My Orders Last 24 Hours: My Active Orders 03/02/17 09:15 Magnesium Sulfate/Water [Magnesium Sulfate 4 GM in Water 100 ML] 4 gm Premix Bag 1 bag IV ONETIME 03/02/17 09:16 Metoprolol Tartrate [Lopressor] 5 mg IVPUSH ONETIME ONE 03/02/17 09:17 Fecal Occult Blood Collection [RC] ASDIRECTED FERRITIN [REF] Routine FOLIC ACID [CHEM] Routine IRON/TIBC [CHEM] Routine OCCULT BLOOD DIAGNOSTIC [OP] Routine RETICULOCYTE COUNT [HEME] Routine TRANSFERRIN [CHEM] Routine VITAMIN B12 [CHEM] Routine 03/02/17 09:18 PERIPH BLOOD SMEAR PATHOLOGIST [HEME] Routine 03/02/17 09:30 Phosphorus #1 [Neutra-Phos] 250 mg PO QID - Plan Plan:: This 71 year old male admitted for rhabdomyolysis, dehydration and hypotension 1. Rhabdomyolsis: CPK improving, 865 today from 1400. Will continue cautious fluids, NS 100 ml for now due to hx of CHF. Monitor CPK in am along with renal function. PT to evaluate and treat with fall at home. 2. Hypotension: Improved with fluids. Monitor closely 3. Hypokalemia, hypomagnesemia, hypophosphatemia: Supplement today and monitor in am. 4. Atrial tachycardia: Metoprolol was held last evening due to hypotension. Lopressor IV 5 mg given this am, will supplement electrolytes as above and restart Metorpolol 25 mg BID. 5. Anemia: Has been worked up for this, awaiting colonoscopy. No further GI bleeding noted. Hgb 8.6 today. Will monitor. start Iron. 6. CHF: Preserved EF 50-60%. Will closely monitor with IVFs and rhabdomyolysis. 7. Gouty arthritis: Prednisone, continue. Analgesia as needed. VTE prophylaxis: Lovenox, monitor closely. Dispo: 2-3 days pending improvement.
[2017-03-02] MEDS: Phosphorus #1 250 MG Tab PO SCH ×4 (09:34→23:47)
[2017-03-02] MEDS: Metoprolol Tartrate 25 MG Tab PO SCH ×2 (11:32→20:48)
[2017-03-02] MEDS: Iron Polysaccharides Complex 150 MG Cap PO SCH (11:40)
[2017-03-02] MEDS ORDERED: Calcium Gluconate 10% 1 GM/10 ML SDV IV ONE (11:44)
[2017-03-02] MEDS: Acetaminophen 325 MG Tab PO PRN (13:48)
[2017-03-02] MEDS: Levothyroxine 25 MCG Tab PO SCH (15:21)
[2017-03-02] MEDS: predniSONE 5 MG Tab PO SCH (17:11)
[2017-03-02] MEDS: oxyCODONE 5 MG Tab PO PRN (20:47)
[2017-03-03] MEDS ORDERED: Sodium Chloride 0.9% 1,000 ML IV ONE (01:08)
[2017-03-03] MEDS: Sodium Chloride 0.9% 1,000 ML IV SCH ×2 (02:59→08:36)
[2017-03-03] MEDS: oxyCODONE 5 MG Tab PO PRN ×2 (04:50→17:30)
[2017-03-03 05:26] LABS: CHLORIDE,CL 100 mmol/L (98-110); SODIUM,NA 130 mmol/L (136-146)
[2017-03-03] MEDS: Phosphorus #1 250 MG Tab PO SCH ×4 (06:17→23:46)
[2017-03-03] MEDS: Levothyroxine 25 MCG Tab PO SCH (06:30)
[2017-03-03] MEDS: Pantoprazole 40 MG in Sodium Chloride 0.9% 10 ML IVPUSH SCH ×2 (08:41→20:43)
[2017-03-03] MEDS: Tamsulosin 0.4 MG Cap.ER PO SCH (08:49)
[2017-03-03] MEDS: Iron Polysaccharides Complex 150 MG Cap PO SCH (08:49)
[2017-03-03] MEDS: Folic Acid 1 MG Tab PO SCH (08:49)
[2017-03-03] MEDS: predniSONE 5 MG Tab PO SCH ×2 (08:49→17:31)
[2017-03-03] MEDS: Metoprolol Tartrate 25 MG Tab PO SCH (09:04)
[2017-03-03] MEDS ORDERED: Acetaminophen 325 MG Tab PO ONE (11:44)
[2017-03-03] MEDS ORDERED: diphenhydrAMINE 50 MG Cap PO ONE (11:44)
[2017-03-03] MEDS ORDERED: Furosemide 20 MG/2 ML VIAL IVPUSH SCH (11:45)
[2017-03-03] MEDS: Magnesium Oxide 400 MG Tab PO SCH ×2 (14:03→20:42)
--- NOTE | 2017-03-03 17:23 | PCM.PN ---
- General Info Date of Service: 03/03/17 Admission Dx/Problem (Free Text): Rhabdomyolysis, hypokalemia, dehydration Subjective Update: The patient says that he is been doing well however, he has been anemic with hypotension. The patient also has had heme positive stools. Functional Status: Reports: Pain Controlled, Tolerating Diet - Review of Systems General: Reports: Weakness HEENT: Reports: No Symptoms Pulmonary: Reports: No Symptoms Cardiovascular: Reports: No Symptoms Gastrointestinal: Reports: No Symptoms Genitourinary: Reports: No Symptoms Musculoskeletal: Reports: No Symptoms Skin: Reports: No Symptoms Neurological: Reports: No Symptoms Psychiatric: Reports: No Symptoms - Patient Data Vitals - Most Recent: Last Vital Signs Temp 36.3 C 03/03/17 16:00 Pulse 76 03/03/17 16:00 Resp 16 03/03/17 16:00 BP 95/52 L 03/03/17 16:00 Pulse Ox 93 L 03/03/17 16:00 Weight - Most Recent: 73.482 kg Lab Results Last 24 Hours: Laboratory Results - last 24 hr 03/03/17 Range/Units 12:10 Blood Type O POSITIVE Antibody Screen NEGATIVE Crossmatch See Detail Med Orders - Current: Current Medications Acetaminophen (Tylenol) 650 mg PO Q4H PRN PRN Reason: Pain (Mild 1-3)/fever Last Admin: 03/02/17 13:48 Dose: 650 mg Docusate Sodium (Colace) 100 mg PO BID PRN PRN Reason: Constipation Folic Acid (Folic Acid) 1 mg PO DAILY [facility] Last Admin: 03/03/17 08:49 Dose: 1 mg Furosemide (Lasix) 20 mg IVPUSH ONCALL [facility] Stop: 03/04/17 11:46 Sodium Chloride (Normal Saline) 1,000 mls @ 83 mls/hr IV ASDIRECTED ANJALI Last Infusion: 03/01/17 14:58 Dose: 999 mls/hr Potassium Chloride 20 meq/ (Sodium Chloride) 260 mls @ 130 mls/hr IV ASDIRECTED ANJALI Last Admin: 03/01/17 16:06 Dose: 130 mls/hr Sodium Chloride (Normal Saline) 1,000 mls @ 100 mls/hr IV ASDIRECTED ANJALI Last Admin: 03/03/17 08:36 Dose: 100 mls/hr Pantoprazole Sodium 40 mg/ (Sodium Chloride) 10 mls @ 300 mls/hr IVPUSH Q12H [facility] Last Admin: 03/03/17 08:41 Dose: 300 mls/hr Levothyroxine Sodium (Levothyroxine) 25 mcg PO MoWeFr@0730 [facility] Levothyroxine Sodium (Levothyroxine) 150 mcg PO SuTuThSa@0730 [facility] Magnesium Oxide (Magnesium Oxide) 400 mg PO BID [facility] Last Admin: 03/03/17 14:03 Dose: 400 mg Oxycodone HCl (Oxycodone) 5 mg PO Q4H PRN PRN Reason: Pain (moderate 4-6) Last Admin: 03/03/17 04:50 Dose: 5 mg Polysaccharide Iron Complex (Ferrex 150) 150 mg PO DAILY [facility] Last Admin: 03/03/17 08:49 Dose: 150 mg Prednisone (Prednisone) 5 mg PO BIDMEALS [facility] Last Admin: 03/03/17 08:49 Dose: 5 mg Sodium Chloride (Saline Flush) 10 ml FLUSH ASDIRECTED PRN PRN Reason: Keep Vein Open Last Admin: 03/01/17 14:14 Dose: 10 ml Sodium Chloride (Saline Flush) 2.5 ml FLUSH ASDIRECTED PRN PRN Reason: Keep Vein Open Last Admin: 03/01/17 14:13 Dose: 2.5 ml Sodium Phosphate (Neutra-Phos) 250 mg PO QID [facility] Last Admin: 03/03/17 11:52 Dose: 250 mg Tamsulosin HCl (Flomax) 0.4 mg PO DAILY [facility] Last Admin: 03/03/17 08:49 Dose: 0.4 mg Discontinued Medications Acetaminophen (Tylenol) 650 mg PO NOW ONE Stop: 03/03/17 11:45 Last Admin: 03/03/17 13:23 Dose: 650 mg Calcium Gluconate (Calcium Gluconate) 1 gm IV ONETIME ONE Stop: 03/02/17 11:45 Last Admin: 03/02/17 12:22 Dose: 1 gm Diphenhydramine HCl (Benadryl) 50 mg PO ONETIME ONE Stop: 03/03/17 11:45 Last Admin: 03/03/17 13:23 Dose: 50 mg Enoxaparin Sodium (Lovenox) 30 mg SUBCUT DAILY [facility] Last Admin: 03/02/17 09:08 Dose: 30 mg Sodium Chloride (Normal Saline) 1,000 mls @ 100 mls/hr IV ASDIRECTED ANJALI Magnesium Sulfate 2 gm/ Premix 50 mls @ 50 mls/hr IV ONETIME ONE Stop: 03/01/17 18:23 Last Admin: 03/01/17 18:05 Dose: 50 mls/hr Potassium Chloride/Sodium Chloride (Normal Saline With 20 Meq Kcl) 1,000 mls @ 75 mls/hr IV ASDIRECTED ANJALI Last Infusion: 03/01/17 21:01 Dose: 75 mls/hr Potassium Chloride/Sodium Chloride (Normal Saline With 20 Meq Kcl) 1,000 mls @ 100 mls/hr IV ASDIRECTED ANJALI Last Admin: 03/02/17 05:46 Dose: 100 mls/hr Magnesium Sulfate 4 gm/ Premix 100 mls @ 50 mls/hr IV ONETIME ONE Stop: 03/02/17 11:14 Last Admin: 03/02/17 09:34 Dose: 50 mls/hr Sodium Chloride (Normal Saline) 1,000 mls @ 999 mls/hr IV ONETIME ONE Stop: 03/03/17 02:08 Last Admin: 03/03/17 01:24 Dose: 999 mls/hr Levothyroxine Sodium (Levothyroxine) 150 mcg PO ACBREAKFAST ANJALI Last Admin: 03/02/17 06:34 Dose: 150 mcg Levothyroxine Sodium (Levothyroxine) 25 mcg PO ACBREAKFAST ANJALI Last Admin: 03/03/17 06:30 Dose: 25 mcg Metoprolol Tartrate (Lopressor) 25 mg PO BID [facility] Metoprolol Tartrate (Lopressor) 5 mg IVPUSH ONETIME ONE Stop: 03/02/17 09:14 Last Admin: 03/02/17 09:42 Dose: Not Given Metoprolol Tartrate (Lopressor) 5 mg IVPUSH ONETIME ONE Stop: 03/02/17 09:31 Last Admin: 03/02/17 09:41 Dose: 5 mg Metoprolol Tartrate (Lopressor) 25 mg PO Q12HR [facility] Last Admin: 03/03/17 09:04 Dose: Not Given Morphine Sulfate (Morphine) 2 mg IVPUSH Q2H PRN PRN Reason: Pain (severe 7-10) Stop: 03/02/17 17:20 Potassium Chloride (Klor-Con M20) 40 meq PO ONETIME ONE Stop: 03/01/17 14:40 Last Admin: 03/01/17 16:06 Dose: 40 meq - Exam Quality Assessment: Supplemental Oxygen General: Alert, Oriented, Cooperative, No Acute Distress HEENT: Pupils Equal, Pupils Reactive Neck: Supple, Trachea Midline Lungs: Clear to Auscultation, Normal Respiratory Effort Cardiovascular: Regular Rate, Regular Rhythm GI/Abdominal Exam: Normal Bowel Sounds, Soft, No Distention (Male) Exam: Deferred Back Exam: Decreased Range of Motion Extremities: No Pedal Edema Skin: Warm, Dry Neurological: No New Focal Deficit Psy/Mental Status: Alert, Normal Affect - Problem List & Annotations (1) Rhabdomyolysis SNOMED Code(s): 848783263 Code(s): M62.82 - RHABDOMYOLYSIS Status: Acute Priority: High Current Visit: Yes Qualifiers: Rhabdomyolysis type: traumatic Encounter type: initial encounter Qualified Code(s): T79.6XXA - Traumatic ischemia of muscle, initial encounter (2) Hypotension SNOMED Code(s): 05731746 Code(s): I95.9 - HYPOTENSION, UNSPECIFIED Status: Acute Priority: High Current Visit: Yes Qualifiers: Hypotension type: orthostatic hypotension Qualified Code(s): I95.1 - Orthostatic hypotension (3) Hypokalemia SNOMED Code(s): 27935182 Code(s): E87.6 - HYPOKALEMIA Status: Acute Priority: High Current Visit : Yes (4) Hypomagnesemia SNOMED Code(s): 354039640 Code(s): E83.42 - HYPOMAGNESEMIA Status: Acute Priority: High Current Visit: Yes (5) Dehydration SNOMED Code(s): 43644820 Code(s): E86.0 - DEHYDRATION Status: Acute Priority: High Current Visit : Yes (6) Anemia SNOMED Code(s): 394354625 Code(s): D64.9 - ANEMIA, UNSPECIFIED Status: Chronic Priority: High Current Visit: Yes Qualifiers: Anemia type: unspecified type Qualified Code(s): D64.9 - Anemia, unspecified - Problem List Review Problem List Initiated/Reviewed/Updated: Yes - My Orders Last 24 Hours: My Active Orders 03/03/17 13:45 Magnesium Oxide 400 mg PO BID - Plan Plan:: The patient is a 71-year-old gentleman who was admitted secondary to rhabdomyolysis. The patient had fallen out of bed and had yandy undiscovered for several hours. The patient has improved somewhat although it has been noted that he has had heme positive stools and his hemoglobin had dropped sufficiently low that he was recommended for transfusion of 2 units of packed red blood cells. The patient's latest vital signs post blood transfusion showed to be 95/52 mmHg. The patient has been fairly consistently hypotensive and I've ordered a 2-D echocardiogram to check for wall motion abnormalities as decreased ejection fraction may have contributed to his passing out. I've recommended that the patient not have Lasix in order for the blood to act as a blood volume taxi proprietor and pull extracellular fluid into the capillary system. The patient also has a relatively high absolute reticulocyte count and this is been referred to pathology for review. His lactate is currently a 1.5 and this is normalized. The patient has had iron studies completed which also show low with present time. I will order iron sucrose for the patient. Prior to blood transfusion the patient has been advised of the risk, benefits and alternatives of blood transfusion and blood products. He is agreed to the blood transfusion. The patient will have his vital signs monitored he will continue on telemetry.
[2017-03-03] MEDS: Acetaminophen 325 MG Tab PO PRN (17:31)
[2017-03-04] MEDS: Sodium Chloride 0.9% 1,000 ML IV SCH ×2 (02:23→16:55)
[2017-03-04] MEDS: Phosphorus #1 250 MG Tab PO SCH ×4 (05:34→23:50)
[2017-03-04] MEDS: oxyCODONE 5 MG Tab PO PRN ×2 (05:40→11:15)
[2017-03-04 05:41] LABS: CHLORIDE,CL 103 mmol/L (98-110); SODIUM,NA 134 mmol/L (136-146)
[2017-03-04] MEDS: Levothyroxine 150 MCG Tab PO SCH (07:07)
[2017-03-04] MEDS: Pantoprazole 40 MG in Sodium Chloride 0.9% 10 ML IVPUSH SCH ×2 (08:50→20:10)
[2017-03-04] MEDS: Iron Polysaccharides Complex 150 MG Cap PO SCH (08:50)
[2017-03-04] MEDS: Folic Acid 1 MG Tab PO SCH (08:50)
[2017-03-04] MEDS: Magnesium Oxide 400 MG Tab PO SCH ×2 (08:50→20:13)
[2017-03-04] MEDS: Tamsulosin 0.4 MG Cap.ER PO SCH (08:51)
[2017-03-04] MEDS: predniSONE 5 MG Tab PO SCH ×2 (08:51→18:05)
[2017-03-04] MEDS ORDERED: Iron Sucrose Complex 100 MG in Sodium Chloride 0.9% 100 ML IV ONE (10:04)
[2017-03-04] MEDS ORDERED: Magnesium Sulfate/Water 2 GM in Premix Bag 1 BAG IV ONE (11:17)
--- NOTE | 2017-03-04 17:44 | PCM.PN ---
- General Info Date of Service: 03/04/17 Admission Dx/Problem (Free Text): Rhabdomyolysis, hypokalemia, dehydration Subjective Update: The patient says he feels somewhat better today but he is still having problems with hypotension. 2-D echocardiogram was completed this morning. Functional Status: Reports: Pain Controlled - Review of Systems General: Reports: Weakness, Fatigue HEENT: Reports: No Symptoms Pulmonary: Reports: Shortness of Breath Cardiovascular: Reports: No Symptoms Gastrointestinal: Reports: No Symptoms Genitourinary: Reports: No Symptoms Musculoskeletal: Reports: No Symptoms Skin: Reports: No Symptoms Neurological: Reports: No Symptoms Psychiatric: Reports: No Symptoms - Patient Data Vitals - Most Recent: Last Vital Signs Temp 37.3 C 03/04/17 16:00 Pulse 97 03/04/17 16:00 Resp 18 03/04/17 16:00 BP 128/61 03/04/17 16:00 Pulse Ox 92 L 03/04/17 16:00 Weight - Most Recent: 76.5 kg I&O - Last 24 Hours: Intake & Output 03/04/17 03/04/17 03/04/17 06:59 14:59 22:59 Intake Total 1373 2216 Output Total 1600 380 Balance -227 1836 Lab Results Last 24 Hours: Laboratory Results - last 24 hr 03/03/17 03/04/17 03/04/17 Range/Units 12:10 04:59 04:59 WBC 5.37 (4.0-11.0) K/uL RBC 3.15 L (4.50-5.90) M/uL Hgb 9.5 L (13.0-17.0) g/dL Hct 28.0 L (38.0-50.0) % MCV 88.9 (80.0-98.0) fL MCH 30.2 (27.0-32.0) pg MCHC 33.9 (31.0-37.0) g/dL RDW Std Deviation 65.6 H (28.0-62.0) fl RDW Coeff of Kristy 21 H (11.0-15.0) % Plt Count 311 (150-400) K/uL MPV 9.70 (7.40-12.00) fL Add Manual Diff YES Neutrophils % (Manual) 48 (48.0-80.0) % Band Neutrophils % 1 % Lymphocytes % (Manual) 35 (16.0-40.0) % Monocytes % (Manual) 9 (0.0-15.0) % Eosinophils % (Manual) 1 (0.0-7.0) % Metamyelocytes % 6 % Nucleated RBC % 0.0 /100WBC Absolute Seg Neuts 2.6 Band Neutrophils # 0.1 Lymphocytes # (Manual) 1.9 Monocytes # (Manual) 0.5 Eosinophils # (Manual) 0.1 Absolute Metamyelocyte 0.3 Nucleated RBCs # 0 K/uL Sodium 134 L (136-146) mmol/L Potassium 4.2 (3.5-5.1) mmol/L Chloride 103 (98-110) mmol/L Carbon Dioxide 24 (21-31) mmol/L BUN 8 (6.0-23.0) mg/dL Creatinine 0.7 (0.6-1.5) mg/dL Est Cr Clr Drug Dosing 98.19 mL/min Estimated GFR (MDRD) > 60.0 ml/min Glucose 91 (60-110) mg/dL Calcium 7.2 L (8.8-10.8) mg/dL Phosphorus 3.1 (2.4-4.7) mg/dL Magnesium 1.4 L (1.5-2.3) mEq/L Blood Type O POSITIVE Antibody Screen NEGATIVE Crossmatch See Detail Med Orders - Current: Current Medications Acetaminophen (Tylenol) 650 mg PO Q4H PRN PRN Reason: Pain (Mild 1-3)/fever Last Admin: 03/03/17 17:31 Dose: 650 mg Docusate Sodium (Colace) 100 mg PO BID PRN PRN Reason: Constipation Folic Acid (Folic Acid) 1 mg PO DAILY [facility] Last Admin: 03/04/17 08:50 Dose: 1 mg Sodium Chloride (Normal Saline) 1,000 mls @ 83 mls/hr IV ASDIRECTED ANJALI Last Infusion: 03/01/17 14:58 Dose: 999 mls/hr Potassium Chloride 20 meq/ (Sodium Chloride) 260 mls @ 130 mls/hr IV ASDIRECTED ANJALI Last Admin: 03/01/17 16:06 Dose: 130 mls/hr Sodium Chloride (Normal Saline) 1,000 mls @ 100 mls/hr IV ASDIRECTED ANJALI Last Admin: 03/04/17 16:55 Dose: 100 mls/hr Pantoprazole Sodium 40 mg/ (Sodium Chloride) 10 mls @ 300 mls/hr IVPUSH Q12H [facility] Last Admin: 03/04/17 08:50 Dose: 300 mls/hr Levothyroxine Sodium (Levothyroxine) 25 mcg PO MoWeFr@0730 [facility] Levothyroxine Sodium (Levothyroxine) 150 mcg PO SuTuThSa@0730 [facility] Last Admin: 03/04/17 07:07 Dose: 150 mcg Magnesium Oxide (Magnesium Oxide) 400 mg PO BID [facility] Last Admin: 03/04/17 08:50 Dose: 400 mg Oxycodone HCl (Oxycodone) 5 mg PO Q4H PRN PRN Reason: Pain (moderate 4-6) Last Admin: 03/04/17 11:15 Dose: 5 mg Polysaccharide Iron Complex (Ferrex 150) 150 mg PO DAILY [facility] Last Admin: 03/04/17 08:50 Dose: 150 mg Prednisone (Prednisone) 5 mg PO BIDMEALS [facility] Last Admin: 03/04/17 08:51 Dose: 5 mg Sodium Chloride (Saline Flush) 10 ml FLUSH ASDIRECTED PRN PRN Reason: Keep Vein Open Last Admin: 03/01/17 14:14 Dose: 10 ml Sodium Chloride (Saline Flush) 2.5 ml FLUSH ASDIRECTED PRN PRN Reason: Keep Vein Open Last Admin: 03/01/17 14:13 Dose: 2.5 ml Sodium Phosphate (Neutra-Phos) 250 mg PO QID [facility] Last Admin: 03/04/17 12:03 Dose: 250 mg Tamsulosin HCl (Flomax) 0.4 mg PO DAILY [facility] Last Admin: 03/04/17 08:51 Dose: 0.4 mg Discontinued Medications Acetaminophen (Tylenol) 650 mg PO NOW ONE Stop: 03/03/17 11:45 Last Admin: 03/03/17 13:23 Dose: 650 mg Calcium Gluconate (Calcium Gluconate) 1 gm IV ONETIME ONE Stop: 03/02/17 11:45 Last Admin: 03/02/17 12:22 Dose: 1 gm Diphenhydramine HCl (Benadryl) 50 mg PO ONETIME ONE Stop: 03/03/17 11:45 Last Admin: 03/03/17 13:23 Dose: 50 mg Enoxaparin Sodium (Lovenox) 30 mg SUBCUT DAILY [facility] Last Admin: 03/02/17 09:08 Dose: 30 mg Furosemide (Lasix) 20 mg IVPUSH ONCALL [facility] Stop: 03/04/17 11:46 Sodium Chloride (Normal Saline) 1,000 mls @ 100 mls/hr IV ASDIRECTED ANJALI Magnesium Sulfate 2 gm/ Premix 50 mls @ 50 mls/hr IV ONETIME ONE Stop: 03/01/17 18:23 Last Admin: 03/01/17 18:05 Dose: 50 mls/hr Potassium Chloride/Sodium Chloride (Normal Saline With 20 Meq Kcl) 1,000 mls @ 75 mls/hr IV ASDIRECTED ANJALI Last Infusion: 03/01/17 21:01 Dose: 75 mls/hr Potassium Chloride/Sodium Chloride (Normal Saline With 20 Meq Kcl) 1,000 mls @ 100 mls/hr IV ASDIRECTED ANJALI Last Admin: 03/02/17 05:46 Dose: 100 mls/hr Magnesium Sulfate 4 gm/ Premix 100 mls @ 50 mls/hr IV ONETIME ONE Stop: 03/02/17 11:14 Last Admin: 03/02/17 09:34 Dose: 50 mls/hr Sodium Chloride (Normal Saline) 1,000 mls @ 999 mls/hr IV ONETIME ONE Stop: 03/03/17 02:08 Last Admin: 03/03/17 01:24 Dose: 999 mls/hr Iron Sucrose 100 mg/ Sodium (Chloride) 105 mls @ 400 mls/hr IV ONETIME ONE Stop: 03/04/17 10:19 Last Admin: 03/04/17 11:15 Dose: 400 mls/hr Magnesium Sulfate 2 gm/ Premix 50 mls @ 50 mls/hr IV ONETIME ONE Stop: 03/04/17 12:16 Last Admin: 03/04/17 12:03 Dose: 50 mls/hr Levothyroxine Sodium (Levothyroxine) 150 mcg PO ACBREAKFAST [facility] Last Admin: 03/02/17 06:34 Dose: 150 mcg Levothyroxine Sodium (Levothyroxine) 25 mcg PO ACBREAKFAST ANJ[facility] Last Admin: 03/03/17 06:30 Dose: 25 mcg Metoprolol Tartrate (Lopressor) 25 mg PO BID [facility] Metoprolol Tartrate (Lopressor) 5 mg IVPUSH ONETIME ONE Stop: 03/02/17 09:14 Last Admin: 03/02/17 09:42 Dose: Not Given Metoprolol Tartrate (Lopressor) 5 mg IVPUSH ONETIME ONE Stop: 03/02/17 09:31 Last Admin: 03/02/17 09:41 Dose: 5 mg Metoprolol Tartrate (Lopressor) 25 mg PO Q12HR [facility] Last Admin: 03/03/17 09:04 Dose: Not Given Morphine Sulfate (Morphine) 2 mg IVPUSH Q2H PRN PRN Reason: Pain (severe 7-10) Stop: 03/02/17 17:20 Potassium Chloride (Klor-Con M20) 40 meq PO ONETIME ONE Stop: 03/01/17 14:40 Last Admin: 03/01/17 16:06 Dose: 40 meq - Exam Quality Assessment: No: Supplemental Oxygen General: Alert, Oriented, Cooperative HEENT: Pupils Equal, Pupils Reactive Neck: Supple, Trachea Midline Lungs: Clear to Auscultation, Normal Respiratory Effort Cardiovascular: Regular Rate, Regular Rhythm GI/Abdominal Exam: Normal Bowel Sounds, Soft, No Distention Back Exam: Decreased Range of Motion Extremities: No Pedal Edema Skin: Warm, Dry Neurological: No New Focal Deficit Psy/Mental Status: Alert, Normal Affect - Problem List & Annotations (1) Hypotension SNOMED Code(s): 69007259 Code(s): I95.9 - HYPOTENSION, UNSPECIFIED Status: Acute Priority: High Current Visit: Yes Qualifiers: Hypotension type: orthostatic hypotension Qualified Code(s): I95.1 - Orthostatic hypotension (2) Rhabdomyolysis SNOMED Code(s): 870352532 Code(s): M62.82 - RHABDOMYOLYSIS Status: Acute Priority: High Current Visit: Yes Qualifiers: Rhabdomyolysis type: traumatic Encounter type: initial encounter Qualified Code(s): T79.6XXA - Traumatic ischemia of muscle, initial encounter (3) Hypokalemia SNOMED Code(s): 71113042 Code(s): E87.6 - HYPOKALEMIA Status: Acute Priority: High Current Visit : Yes (4) Hypomagnesemia SNOMED Code(s): 338176404 Code(s): E83.42 - HYPOMAGNESEMIA Status: Acute Priority: High Current Visit: Yes (5) Dehydration SNOMED Code(s): 07256036 Code(s): E86.0 - DEHYDRATION Status: Acute Priority: High Current Visit : Yes (6) Anemia SNOMED Code(s): 398289212 Code(s): D64.9 - ANEMIA, UNSPECIFIED Status: Chronic Priority: High Current Visit: Yes Qualifiers: Anemia type: unspecified type Qualified Code(s): D64.9 - Anemia, unspecified - Problem List Review Problem List Initiated/Reviewed/Updated: Yes - My Orders Last 24 Hours: My Active Orders 03/04/17 11:16 Echo Comp wo Cont [US] Stat - Plan Plan:: The patient is a 71-year-old gentleman who was admitted secondary to rhabdomyolysis. The patient had fallen out of bed and had yandy undiscovered for several hours. I've ordered a 2-D echocardiogram to check for wall motion abnormalities as decreased ejection fraction may have contributed to his passing out. I've recommended that the patient not have Lasix in order for the blood to act as a blood volume herb doctor and pull extracellular fluid into the capillary system. I will order iron sucrose for the patient. Prior to blood transfusion the patient has been advised of the risk, benefits and alternatives of blood transfusion and blood products. He is agreed to the blood transfusion. The patient will have his vital signs monitored he will continue on telemetry. The patient reportedly had fallen out of bed and had yandy undiscovered for approximately 8 hours. He did have evidence of elevation of his CPK and he is placed on IV fluids. The patient became anemic and he had 2 units of packed red blood cells transfused. The patient's vital signs have normalized today and his blood pressure is 128/61. Patient's oxygen saturations remained low. We are currently pending information with regards to the 2-D echocardiogram completed.
[2017-03-04] MEDS: Acetaminophen 325 MG Tab PO PRN (21:19)
[2017-03-05 06:04] LABS: CHLORIDE,CL 107 mmol/L (98-110); SODIUM,NA 135 mmol/L (136-146)
[2017-03-05] MEDS: Phosphorus #1 250 MG Tab PO SCH ×4 (06:25→23:26)
[2017-03-05] MEDS: Levothyroxine 25 MCG Tab PO SCH (06:36)
[2017-03-05] MEDS: Tamsulosin 0.4 MG Cap.ER PO SCH (09:33)
[2017-03-05] MEDS: Magnesium Oxide 400 MG Tab PO SCH ×2 (09:34→21:30)
[2017-03-05] MEDS: Iron Polysaccharides Complex 150 MG Cap PO SCH (09:34)
[2017-03-05] MEDS: predniSONE 5 MG Tab PO SCH ×2 (09:35→17:06)
[2017-03-05] MEDS: Folic Acid 1 MG Tab PO SCH (09:38)
[2017-03-05] MEDS: Pantoprazole 40 MG in Sodium Chloride 0.9% 10 ML IVPUSH SCH (09:39)
[2017-03-05] MEDS: oxyCODONE 5 MG Tab PO PRN ×2 (10:39→23:19)
[2017-03-05] MEDS: Sodium Chloride 0.9% 1,000 ML IV SCH (13:24)
[2017-03-05] MEDS ORDERED: Hydrocolloid Dressing 4x4 Bandage TOP ONE (13:35)
--- NOTE | 2017-03-05 14:07 | PCM.PN ---
- General Info Date of Service: 03/05/17 - Review of Systems Systems Review Comment:: no new complaints. He states that he cannot walk by himself. He refuses to consider [facility] or other assisted living. He has a prior history of suspected GI bleed with anemia. upper and lower endoscopy has not yet been done due to cardiovascular risk. His sister reports that he was in atrial fibrillation at the time of attempted endoscopy and the procedure was postponed. - Patient Data Vitals - Most Recent: Last Vital Signs Temp 97.5 F 03/05/17 12:05 Pulse 104 H 03/05/17 12:05 Resp 20 03/05/17 08:35 BP 138/61 03/05/17 12:05 Pulse Ox 92 L 03/05/17 04:00 Weight - Most Recent: 76.5 kg I&O - Last 24 Hours: Intake & Output 03/04/17 03/05/17 03/05/17 22:59 06:59 14:59 Intake Total 2226 1960 Output Total 380 2425 Balance 1846 -465 Lab Results Last 24 Hours: Laboratory Results - last 24 hr 03/03/17 03/05/17 03/05/17 Range/Units 12:10 04:49 04:49 WBC 7.50 (4.0-11.0) K/uL RBC 2.93 L (4.50-5.90) M/uL Hgb 8.8 L (13.0-17.0) g/dL Hct 26.4 L (38.0-50.0) % MCV 90.1 (80.0-98.0) fL MCH 30.0 (27.0-32.0) pg MCHC 33.3 (31.0-37.0) g/dL RDW Std Deviation 67.0 H (28.0-62.0) fl RDW Coeff of Kristy 21 H (11.0-15.0) % Plt Count 309 (150-400) K/uL MPV 9.70 (7.40-12.00) fL Add Manual Diff YES Neutrophils % (Manual) 55 (48.0-80.0) % Band Neutrophils % 12 % Lymphocytes % (Manual) 20 (16.0-40.0) % Monocytes % (Manual) 13 (0.0-15.0) % Nucleated RBC % 0.0 /100WBC Absolute Seg Neuts 4.1 Band Neutrophils # 0.9 Lymphocytes # (Manual) 1.5 Monocytes # (Manual) 1.0 Nucleated RBCs # 0 K/uL Sodium 135 L (136-146) mmol/L Potassium 3.9 (3.5-5.1) mmol/L Chloride 107 (98-110) mmol/L Carbon Dioxide 24 (21-31) mmol/L BUN 9 (6.0-23.0) mg/dL Creatinine 0.6 (0.6-1.5) mg/dL Est Cr Clr Drug Dosing 114.56 mL/min Estimated GFR (MDRD) > 60.0 ml/min Glucose 97 (60-110) mg/dL Calcium 7.4 L (8.8-10.8) mg/dL Phosphorus (2.4-4.7) mg/dL Magnesium (1.5-2.3) mEq/L Total Bilirubin 1.0 (0.1-1.5) mg/dL AST 22 (5-40) IU/L ALT 20 (8-54) IU/L Alkaline Phosphatase 64 (40-150) Creatine Kinase 121 (9-236) IU/L Total Protein 4.9 L (6.0-8.0) g/dL Albumin 2.0 L (3.4-4.8) g/dL Globulin 2.9 (2.0-3.5) g/dL Albumin/Globulin Ratio 0.7 L (1.3-2.8) Blood Type O POSITIVE Antibody Screen NEGATIVE Crossmatch See Detail 03/05/17 Range/Units 05:00 WBC (4.0-11.0) K/uL RBC (4.50-5.90) M/uL Hgb (13.0-17.0) g/dL Hct (38.0-50.0) % MCV (80.0-98.0) fL MCH (27.0-32.0) pg MCHC (31.0-37.0) g/dL RDW Std Deviation (28.0-62.0) fl RDW Coeff of Kristy (11.0-15.0) % Plt Count (150-400) K/uL MPV (7.40-12.00) fL Add Manual Diff Neutrophils % (Manual) (48.0-80.0) % Band Neutrophils % % Lymphocytes % (Manual) (16.0-40.0) % Monocytes % (Manual) (0.0-15.0) % Nucleated RBC % /100WBC Absolute Seg Neuts Band Neutrophils # Lymphocytes # (Manual) Monocytes # (Manual) Nucleated RBCs # K/uL Sodium (136-146) mmol/L Potassium (3.5-5.1) mmol/L Chloride (98-110) mmol/L Carbon Dioxide (21-31) mmol/L BUN (6.0-23.0) mg/dL Creatinine (0.6-1.5) mg/dL Est Cr Clr Drug Dosing mL/min Estimated GFR (MDRD) ml/min Glucose (60-110) mg/dL Calcium (8.8-10.8) mg/dL Phosphorus 3.2 (2.4-4.7) mg/dL Magnesium 1.5 (1.5-2.3) mEq/L Total Bilirubin (0.1-1.5) mg/dL AST (5-40) IU/L ALT (8-54) IU/L Alkaline Phosphatase (40-150) Creatine Kinase (9-236) IU/L Total Protein (6.0-8.0) g/dL Albumin (3.4-4.8) g/dL Globulin (2.0-3.5) g/dL Albumin/Globulin Ratio (1.3-2.8) Blood Type Antibody Screen Crossmatch Med Orders - Current: Current Medications Acetaminophen (Tylenol) 650 mg PO Q4H PRN PRN Reason: Pain (Mild 1-3)/fever Last Admin: 03/04/17 21:19 Dose: 650 mg Docusate Sodium (Colace) 100 mg PO BID PRN PRN Reason: Constipation Folic Acid (Folic Acid) 1 mg PO DAILY [facility] Last Admin: 03/05/17 09:38 Dose: 1 mg Sodium Chloride (Normal Saline) 1,000 mls @ 83 mls/hr IV ASDIRECTED ANJALI Last Admin: 03/05/17 13:24 Dose: 999 mls/hr Potassium Chloride 20 meq/ (Sodium Chloride) 260 mls @ 130 mls/hr IV ASDIRECTED [facility]JAL[facility] Last Admin: 03/01/17 16:06 Dose: 130 mls/hr Sodium Chloride (Normal Saline) 1,000 mls @ 100 mls/hr IV ASDIRECTED ANJALI Last Admin: 03/04/17 16:55 Dose: 100 mls/hr Pantoprazole Sodium 40 mg/ (Sodium Chloride) 10 mls @ 300 mls/hr IVPUSH Q12H [facility] Last Admin: 03/05/17 09:39 Dose: 300 mls/hr Levothyroxine Sodium (Levothyroxine) 25 mcg PO MoWeFr@[id number] [facility] Last Admin: 03/05/17 06:36 Dose: Not Given Levothyroxine Sodium (Levothyroxine) 150 mcg PO SuTuThSa@0730 [facility] Last Admin: 03/04/17 07:07 Dose: 150 mcg Magnesium Oxide (Magnesium Oxide) 400 mg PO BID [facility] Last Admin: 03/05/17 09:34 Dose: 400 mg Oxycodone HCl (Oxycodone) 5 mg PO Q4H PRN PRN Reason: Pain (moderate 4-6) Last Admin: 03/05/17 10:39 Dose: 5 mg Polysaccharide Iron Complex (Ferrex 150) 150 mg PO DAILY [facility] Last Admin: 03/05/17 09:34 Dose: 150 mg Prednisone (Prednisone) 5 mg PO BIDMEALS [facility] Last Admin: 03/05/17 09:35 Dose: 5 mg Sodium Chloride (Saline Flush) 10 ml FLUSH ASDIRECTED PRN PRN Reason: Keep Vein Open Last Admin: 03/01/17 14:14 Dose: 10 ml Sodium Chloride (Saline Flush) 2.5 ml FLUSH ASDIRECTED PRN PRN Reason: Keep Vein Open Last Admin: 03/01/17 14:13 Dose: 2.5 ml Sodium Phosphate (Neutra-Phos) 250 mg PO QID [facility] Last Admin: 03/05/17 11:27 Dose: 250 mg Tamsulosin HCl (Flomax) 0.4 mg PO DAILY [facility] Last Admin: 03/05/17 09:33 Dose: 0.4 mg Discontinued Medications Acetaminophen (Tylenol) 650 mg PO NOW ONE Stop: 03/03/17 11:45 Last Admin: 03/03/17 13:23 Dose: 650 mg Calcium Gluconate (Calcium Gluconate) 1 gm IV ONETIME ONE Stop: 03/02/17 11:45 Last Admin: 03/02/17 12:22 Dose: 1 gm Diphenhydramine HCl (Benadryl) 50 mg PO ONETIME ONE Stop: 03/03/17 11:45 Last Admin: 03/03/17 13:23 Dose: 50 mg Enoxaparin Sodium (Lovenox) 30 mg SUBCUT DAILY [facility] Last Admin: 03/02/17 09:08 Dose: 30 mg Furosemide (Lasix) 20 mg IVPUSH ONCALL [facility] Stop: 03/04/17 11:46 Sodium Chloride (Normal Saline) 1,000 mls @ 100 mls/hr IV ASDIRECTED [facility] Magnesium Sulfate 2 gm/ Premix 50 mls @ 50 mls/hr IV ONETIME ONE Stop: 03/01/17 18:23 Last Admin: 03/01/17 18:05 Dose: 50 mls/hr Potassium Chloride/Sodium Chloride (Normal Saline With 20 Meq Kcl) 1,000 mls @ 75 mls/hr IV ASDIRECTED [facility] Last Infusion: 03/01/17 21:01 Dose: 75 mls/hr Potassium Chloride/Sodium Chloride (Normal Saline With 20 Meq Kcl) 1,000 mls @ 100 mls/hr IV ASDIRECTED [facility] Last Admin: 03/02/17 05:46 Dose: 100 mls/hr Magnesium Sulfate 4 gm/ Premix 100 mls @ 50 mls/hr IV ONETIME ONE Stop: 03/02/17 11:14 Last Admin: 03/02/17 09:34 Dose: 50 mls/hr Sodium Chloride (Normal Saline) 1,000 mls @ 999 mls/hr IV ONETIME ONE Stop: 03/03/17 02:08 Last Admin: 03/03/17 01:24 Dose: 999 mls/hr Iron Sucrose 100 mg/ Sodium (Chloride) 105 mls @ 400 mls/hr IV ONETIME ONE Stop: 03/04/17 10:19 Last Admin: 03/04/17 11:15 Dose: 400 mls/hr Magnesium Sulfate 2 gm/ Premix 50 mls @ 50 mls/hr IV ONETIME ONE Stop: 03/04/17 12:16 Last Admin: 03/04/17 12:03 Dose: 50 mls/hr Levothyroxine Sodium (Levothyroxine) 150 mcg PO ACBREAKFAST [facility] Last Admin: 03/02/17 06:34 Dose: 150 mcg Levothyroxine Sodium (Levothyroxine) 25 mcg PO ACBREAKFAST [facility] Last Admin: 03/03/17 06:30 Dose: 25 mcg Metoprolol Tartrate (Lopressor) 25 mg PO BID [facility] Metoprolol Tartrate (Lopressor) 5 mg IVPUSH ONETIME ONE Stop: 03/02/17 09:14 Last Admin: 03/02/17 09:42 Dose: Not Given Metoprolol Tartrate (Lopressor) 5 mg IVPUSH ONETIME ONE Stop: 03/02/17 09:31 Last Admin: 03/02/17 09:41 Dose: 5 mg Metoprolol Tartrate (Lopressor) 25 mg PO Q12HR [facility] Last Admin: 03/03/17 09:04 Dose: Not Given Morphine Sulfate (Morphine) 2 mg IVPUSH Q2H PRN PRN Reason: Pain (severe 7-10) Stop: 03/02/17 17:20 Potassium Chloride (Klor-Con M20) 40 meq PO ONETIME ONE Stop: 03/01/17 14:40 Last Admin: 03/01/17 16:06 Dose: 40 meq Wound Care/Dressing Products (Duoderm Cgf) 1 each TOP ASDIRECTED ONE Stop: 03/05/17 13:36 - Exam General: Alert, Cooperative, Other (talkative; frequent cursing) Lungs: Clear to Auscultation, Normal Respiratory Effort Cardiovascular: Regular Rate (he required two person assist to stand . He has a 1 cm stage I to stage II ulcerated area right medial buttock. ), Regular Rhythm , No Murmurs Physical Findings Comments:: marked intrinsic hand muscle wasting - Problem List & Annotations (1) Rhabdomyolysis SNOMED Code(s): 318658770 Code(s): M62.82 - RHABDOMYOLYSIS Status: Acute Priority: High Current Visit: Yes Qualifiers: Rhabdomyolysis type: traumatic Encounter type: initial encounter Qualified Code(s): T79.6XXA - Traumatic ischemia of muscle, initial encounter (2) Anemia SNOMED Code(s): 685493170 Code(s): D64.9 - ANEMIA, UNSPECIFIED Status: Acute Current Visit: Yes (3) Physical deconditioning SNOMED Code(s): 66335076130156 Code(s): R53.81 - OTHER MALAISE Status: Acute Current Visit: Yes (4) Gait disturbance SNOMED Code(s): 56115107 Code(s): R26.9 - UNSPECIFIED ABNORMALITIES OF GAIT AND MOBILITY Status: Acute Current Visit: Yes - Problem List Review Problem List Initiated/Reviewed/Updated: Yes - Plan Plan:: The patient is a 71-year-old gentleman who was admitted secondary to rhabdomyolysis. The patient had fallen out of bed and had yandy undiscovered for several hours. I've ordered a 2-D echocardiogram to check for wall motion abnormalities as decreased ejection fraction may have contributed to his passing out. I've recommended that the patient not have Lasix in order for the blood to act as a blood volume government affairs specialist and pull extracellular fluid into the capillary system. I will order iron sucrose for the patient. Prior to blood transfusion the patient has been advised of the risk, benefits and alternatives of blood transfusion and blood products. He is agreed to the blood transfusion. The patient will have his vital signs monitored he will continue on telemetry. The patient reportedly had fallen out of bed and had yandy undiscovered for approximately 8 hours. He did have evidence of elevation of his CPK and he is placed on IV fluids. The patient became anemic and he had 2 units of packed red blood cells transfused. The patient's vital signs have normalized today and his blood pressure is 128/61. Patient's oxygen saturations remained low. We are currently pending information with regards to the 2-D echocardiogram completed. 03/05/2016 he refused to consider [facility] Will continue to monitor gait stability over the weekend with disposition more likely on Wednesday duoderm History of anemia thought secondary to GI bleeding monitor CBC will need to consider outpatient endoscopic evaluation. Ender Stone MD
--- NOTE | 2017-03-05 14:13 | PCM.SN ---
- Free Text/Narrative Note: ahead on fluids; IV to saline lock. PT advised me that he was able to get out of bed and ambulate independently this am. I spoke with two of his sisters today who were at the bedside. Ender Stone MD
[2017-03-05] MEDS: Pantoprazole 40 MG Tab.CR PO SCH (15:43)
[2017-03-06] MEDS: oxyCODONE 5 MG Tab PO PRN ×3 (04:12→19:10)
[2017-03-06] MEDS: Phosphorus #1 250 MG Tab PO SCH ×3 (06:34→17:11)
[2017-03-06] MEDS: Pantoprazole 40 MG Tab.CR PO SCH (06:35)
[2017-03-06] MEDS: Levothyroxine 150 MCG Tab PO SCH (06:35)
[2017-03-06] MEDS: Magnesium Oxide 400 MG Tab PO SCH ×2 (08:45→21:37)
[2017-03-06] MEDS: Folic Acid 1 MG Tab PO SCH (08:46)
[2017-03-06] MEDS: predniSONE 5 MG Tab PO SCH ×2 (08:46→17:11)
[2017-03-06] MEDS: Tamsulosin 0.4 MG Cap.ER PO SCH (08:46)
[2017-03-06] MEDS: Iron Polysaccharides Complex 150 MG Cap PO SCH (08:46)
[2017-03-06] MEDS: Hydrocolloid Dressing 4x4 Bandage TOP SCH (17:12)
--- NOTE | 2017-03-06 17:49 | PCM.PN ---
- General Info Date of Service: 03/06/17 Subjective Update: patient complains about his care including the food. He is alert - Patient Data Vitals - Most Recent: Last Vital Signs Temp 99.4 F 03/06/17 12:42 Pulse 85 03/06/17 12:42 Resp 18 03/06/17 12:42 BP 100/54 L 03/06/17 12:42 Pulse Ox 93 L 03/06/17 12:42 Weight - Most Recent: 76.5 kg I&O - Last 24 Hours: Intake & Output 03/06/17 03/06/17 03/06/17 06:59 14:59 22:59 Intake Total 650 1240 Output Total 1070 600 Balance -420 640 Lab Results Last 24 Hours: Laboratory Results - last 24 hr 03/06/17 Range/Units 14:33 WBC 9.43 (4.0-11.0) K/uL RBC 3.16 L (4.50-5.90) M/uL Hgb 9.4 L (13.0-17.0) g/dL Hct 28.3 L (38.0-50.0) % MCV 89.6 (80.0-98.0) fL MCH 29.7 (27.0-32.0) pg MCHC 33.2 (31.0-37.0) g/dL RDW Std Deviation 68.9 H (28.0-62.0) fl RDW Coeff of Kristy 21 H (11.0-15.0) % Plt Count 265 (150-400) K/uL MPV 9.10 (7.40-12.00) fL Add Manual Diff YES Neutrophils % (Manual) 50 (48.0-80.0) % Band Neutrophils % 19 % Lymphocytes % (Manual) 23 (16.0-40.0) % Monocytes % (Manual) 8 (0.0-15.0) % Nucleated RBC % 0.0 /100WBC Absolute Seg Neuts 4.7 Band Neutrophils # 1.8 Lymphocytes # (Manual) 2.2 Monocytes # (Manual) 0.8 Nucleated RBCs # 0 K/uL Hypochromasia 1+ SLIGHT Med Orders - Current: Current Medications Acetaminophen (Tylenol) 650 mg PO Q4H PRN PRN Reason: Pain (Mild 1-3)/fever Last Admin: 03/04/17 21:19 Dose: 650 mg Docusate Sodium (Colace) 100 mg PO BID PRN PRN Reason: Constipation Ferrous Sulfate (Ferrous Sulfate) 325 mg PO BIDMEALS [facility] Folic Acid (Folic Acid) 1 mg PO DAILY [facility] Last Admin: 03/06/17 08:46 Dose: 1 mg Levothyroxine Sodium (Levothyroxine) 25 mcg PO MoWeFr@0730 [facility] Last Admin: 03/05/17 06:36 Dose: Not Given Levothyroxine Sodium (Levothyroxine) 150 mcg PO SuTuThSa@0730 [facility] Last Admin: 03/06/17 06:35 Dose: 150 mcg Magnesium Oxide (Magnesium Oxide) 400 mg PO BID [facility] Last Admin: 03/06/17 08:45 Dose: 400 mg Oxycodone HCl (Oxycodone) 5 mg PO Q4H PRN PRN Reason: Pain (moderate 4-6) Last Admin: 03/06/17 13:27 Dose: 5 mg Pantoprazole Sodium (Protonix) 40 mg PO ACBREAKFAST [facility] Last Admin: 03/06/17 06:35 Dose: 40 mg Polysaccharide Iron Complex (Ferrex 150) 150 mg PO DAILY [facility] Last Admin: 03/06/17 08:46 Dose: 150 mg Prednisone (Prednisone) 5 mg PO BIDMEALS [facility] Last Admin: 03/06/17 17:11 Dose: 5 mg Sodium Chloride (Saline Flush) 10 ml FLUSH ASDIRECTED PRN PRN Reason: Keep Vein Open Last Admin: 03/01/17 14:14 Dose: 10 ml Sodium Chloride (Saline Flush) 2.5 ml FLUSH ASDIRECTED PRN PRN Reason: Keep Vein Open Last Admin: 03/01/17 14:13 Dose: 2.5 ml Sodium Phosphate (Neutra-Phos) 250 mg PO QID [facility] Last Admin: 03/06/17 17:11 Dose: 250 mg Tamsulosin HCl (Flomax) 0.4 mg PO DAILY [facility] Last Admin: 03/06/17 08:46 Dose: 0.4 mg Wound Care/Dressing Products (Duoderm Cgf) 1 each TOP ASDIRECTED [facility] Last Admin: 03/06/17 17:12 Dose: 1 each Discontinued Medications Acetaminophen (Tylenol) 650 mg PO NOW ONE Stop: 03/03/17 11:45 Last Admin: 03/03/17 13:23 Dose: 650 mg Calcium Gluconate (Calcium Gluconate) 1 gm IV ONETIME ONE Stop: 03/02/17 11:45 Last Admin: 03/02/17 12:22 Dose: 1 gm Diphenhydramine HCl (Benadryl) 50 mg PO ONETIME ONE Stop: 03/03/17 11:45 Last Admin: 03/03/17 13:23 Dose: 50 mg Enoxaparin Sodium (Lovenox) 30 mg SUBCUT DAILY [facility] Last Admin: 03/02/17 09:08 Dose: 30 mg Furosemide (Lasix) 20 mg IVPUSH ONCALL [facility] Stop: 03/04/17 11:46 Sodium Chloride (Normal Saline) 1,000 mls @ 83 mls/hr IV ASDIRECTED [facility] Last Admin: 03/05/17 13:24 Dose: 999 mls/hr Potassium Chloride 20 meq/ (Sodium Chloride) 260 mls @ 130 mls/hr IV ASDIRECTED [facility] Last Admin: 03/01/17 16:06 Dose: 130 mls/hr Sodium Chloride (Normal Saline) 1,000 mls @ 100 mls/hr IV ASDIRECTED [facility]JAL[facility] Magnesium Sulfate 2 gm/ Premix 50 mls @ 50 mls/hr IV ONETIME ONE Stop: 03/01/17 18:23 Last Admin: 03/01/17 18:05 Dose: 50 mls/hr Potassium Chloride/Sodium Chloride (Normal Saline With 20 Meq Kcl) 1,000 mls @ 75 mls/hr IV ASDIRECTED ANJALI Last Infusion: 03/01/17 21:01 Dose: 75 mls/hr Potassium Chloride/Sodium Chloride (Normal Saline With 20 Meq Kcl) 1,000 mls @ 100 mls/hr IV ASDIRECTED ANJALI Last Admin: 03/02/17 05:46 Dose: 100 mls/hr Sodium Chloride (Normal Saline) 1,000 mls @ 100 mls/hr IV ASDIRECTED ANJALI Last Admin: 03/04/17 16:55 Dose: 100 mls/hr Magnesium Sulfate 4 gm/ Premix 100 mls @ 50 mls/hr IV ONETIME ONE Stop: 03/02/17 11:14 Last Admin: 03/02/17 09:34 Dose: 50 mls/hr Sodium Chloride (Normal Saline) 1,000 mls @ 999 mls/hr IV ONETIME ONE Stop: 03/03/17 02:08 Last Admin: 03/03/17 01:24 Dose: 999 mls/hr Pantoprazole Sodium 40 mg/ (Sodium Chloride) 10 mls @ 300 mls/hr IVPUSH Q12H [facility] Last Admin: 03/05/17 09:39 Dose: 300 mls/hr Iron Sucrose 100 mg/ Sodium (Chloride) 105 mls @ 400 mls/hr IV ONETIME ONE Stop: 03/04/17 10:19 Last Admin: 03/04/17 11:15 Dose: 400 mls/hr Magnesium Sulfate 2 gm/ Premix 50 mls @ 50 mls/hr IV ONETIME ONE Stop: 03/04/17 12:16 Last Admin: 03/04/17 12:03 Dose: 50 mls/hr Levothyroxine Sodium (Levothyroxine) 150 mcg PO ACBREAKFAST [facility] Last Admin: 03/02/17 06:34 Dose: 150 mcg Levothyroxine Sodium (Levothyroxine) 25 mcg PO ACBREAKFAST [facility] Last Admin: 03/03/17 06:30 Dose: 25 mcg Metoprolol Tartrate (Lopressor) 25 mg PO BID [facility] Metoprolol Tartrate (Lopressor) 5 mg IVPUSH ONETIME ONE Stop: 03/02/17 09:14 Last Admin: 03/02/17 09:42 Dose: Not Given Metoprolol Tartrate (Lopressor) 5 mg IVPUSH ONETIME ONE Stop: 03/02/17 09:31 Last Admin: 03/02/17 09:41 Dose: 5 mg Metoprolol Tartrate (Lopressor) 25 mg PO Q12HR [facility] Last Admin: 03/03/17 09:04 Dose: Not Given Morphine Sulfate (Morphine) 2 mg IVPUSH Q2H PRN PRN Reason: Pain (severe 7-10) Stop: 03/02/17 17:20 Potassium Chloride (Klor-Con M20) 40 meq PO ONETIME ONE Stop: 03/01/17 14:40 Last Admin: 03/01/17 16:06 Dose: 40 meq Wound Care/Dressing Products (Duoderm Cgf) 1 each TOP ASDIRECTED ONE Stop: 03/05/17 13:36 Last Admin: 03/05/17 13:53 Dose: 1 each Comments:: alert cooperative conversant no facial droop eating without difficulty lungs CTA - Problem List & Annotations (1) Rhabdomyolysis SNOMED Code(s): 242315722 Code(s): M62.82 - RHABDOMYOLYSIS Status: Acute Priority: High Current Visit: Yes Qualifiers: Rhabdomyolysis type: traumatic Encounter type: initial encounter Qualified Code(s): T79.6XXA - Traumatic ischemia of muscle, initial encounter (2) Anemia SNOMED Code(s): 526926079 Code(s): D64.9 - ANEMIA, UNSPECIFIED Status: Acute Current Visit: Yes (3) Physical deconditioning SNOMED Code(s): 41611214765379 Code(s): R53.81 - OTHER MALAISE Status: Acute Current Visit: Yes (4) Gait disturbance SNOMED Code(s): 96485396 Code(s): R26.9 - UNSPECIFIED ABNORMALITIES OF GAIT AND MOBILITY Status: Acute Current Visit: Yes - Problem List Review Problem List Initiated/Reviewed/Updated: Yes - My Orders Last 24 Hours: My Active Orders 03/06/17 17:00 Hydrocolloid Dressing [DuoDerm CGF] 1 each TOP ASDIRECTED 03/06/17 17:45 Ferrous Sulfate 325 mg PO BIDMEALS 03/07/17 05:11 BASIC METABOLIC PANEL,BMP [CHEM] AM CBC WITH AUTO DIFF [HEME] AM 03/08/17 05:11 CBC WITH AUTO DIFF [HEME] AM 03/09/17 05:11 CBC WITH AUTO DIFF [HEME] AM - Assessment Assessment:: 03/06/2017 - Plan Plan:: The patient is a 71-year-old gentleman who was admitted secondary to rhabdomyolysis. The patient had fallen out of bed and had yandy undiscovered for several hours. I've ordered a 2-D echocardiogram to check for wall motion abnormalities as decreased ejection fraction may have contributed to his passing out. I've recommended that the patient not have Lasix in order for the blood to act as a blood volume breastfeeding educator and pull extracellular fluid into the capillary system. I will order iron sucrose for the patient. Prior to blood transfusion the patient has been advised of the risk, benefits and alternatives of blood transfusion and blood products. He is agreed to the blood transfusion. The patient will have his vital signs monitored he will continue on telemetry. The patient reportedly had fallen out of bed and had yandy undiscovered for approximately 8 hours. He did have evidence of elevation of his CPK and he is placed on IV fluids. The patient became anemic and he had 2 units of packed red blood cells transfused. The patient's vital signs have normalized today and his blood pressure is 128/61. Patient's oxygen saturations remained low. We are currently pending information with regards to the 2-D echocardiogram completed. 03/05/2016 he refused to consider [facility] Will continue to monitor gait stability over the weekend with disposition more likely on Wednesday duoderm History of anemia thought secondary to GI bleeding monitor CBC will need to consider outpatient endoscopic evaluation. Ender Stone MD 03/06/2017 add Fe for Fe deficiency Hg stabilizing see above note Ender Stone MD
[2017-03-06] MEDS: Ferrous Sulfate 325 MG Tab PO SCH (19:10)
[2017-03-07] MEDS: Phosphorus #1 250 MG Tab PO SCH ×4 (00:10→18:07)
[2017-03-07] MEDS: oxyCODONE 5 MG Tab PO PRN ×5 (03:54→20:35)
[2017-03-07 06:29] LABS: CHLORIDE,CL 102 mmol/L (98-110); SODIUM,NA 132 mmol/L (136-146)
[2017-03-07] MEDS: Pantoprazole 40 MG Tab.CR PO SCH (06:52)
[2017-03-07] MEDS: Levothyroxine 150 MCG Tab PO SCH (06:52)
[2017-03-07] MEDS: Ferrous Sulfate 325 MG Tab PO SCH ×2 (07:39→18:07)
[2017-03-07] MEDS: predniSONE 5 MG Tab PO SCH ×2 (07:39→18:07)
[2017-03-07] MEDS: Folic Acid 1 MG Tab PO SCH (08:54)
[2017-03-07] MEDS: Magnesium Oxide 400 MG Tab PO SCH ×2 (08:54→20:35)
[2017-03-07] MEDS: Iron Polysaccharides Complex 150 MG Cap PO SCH (08:54)
[2017-03-07] MEDS: Tamsulosin 0.4 MG Cap.ER PO SCH (08:54)
--- NOTE | 2017-03-07 16:22 | PCM.PN ---
- General Info Date of Service: 03/07/17 Subjective Update: les s pain today. - Patient Data Vitals - Most Recent: Last Vital Signs Temp 100.1 F 03/07/17 12:00 Pulse 95 03/07/17 12:00 Resp 18 03/07/17 12:00 BP 124/60 03/07/17 12:00 Pulse Ox 9 L 03/07/17 12:00 Weight - Most Recent: 76.5 kg I&O - Last 24 Hours: Intake & Output 03/07/17 03/07/17 03/07/17 06:59 14:59 22:59 Intake Total 600 Output Total 400 Balance 200 Lab Results Last 24 Hours: Laboratory Results - last 24 hr 03/07/17 03/07/17 Range/Units 05:32 05:32 WBC 10.01 (4.0-11.0) K/uL RBC 3.07 L (4.50-5.90) M/uL Hgb 9.3 L (13.0-17.0) g/dL Hct 27.7 L (38.0-50.0) % MCV 90.2 (80.0-98.0) fL MCH 30.3 (27.0-32.0) pg MCHC 33.6 (31.0-37.0) g/dL RDW Std Deviation 69.1 H (28.0-62.0) fl RDW Coeff of Kristy 22 H (11.0-15.0) % Plt Count 268 (150-400) K/uL MPV 9.20 (7.40-12.00) fL Add Manual Diff YES Neutrophils % (Manual) 59 (48.0-80.0) % Band Neutrophils % 9 % Lymphocytes % (Manual) 24 (16.0-40.0) % Monocytes % (Manual) 6 (0.0-15.0) % Metamyelocytes % 2 % Nucleated RBC % 0.0 /100WBC Absolute Seg Neuts 5.9 Band Neutrophils # 0.9 Lymphocytes # (Manual) 2.4 Monocytes # (Manual) 0.6 Absolute Metamyelocyte 0.2 Nucleated RBCs # 0 K/uL Sodium 132 L (136-146) mmol/L Potassium 4.1 (3.5-5.1) mmol/L Chloride 102 (98-110) mmol/L Carbon Dioxide 24 (21-31) mmol/L BUN 9 (6.0-23.0) mg/dL Creatinine 0.6 (0.6-1.5) mg/dL Est Cr Clr Drug Dosing 114.56 mL/min Estimated GFR (MDRD) > 60.0 ml/min Glucose 89 (60-110) mg/dL Calcium 7.6 L (8.8-10.8) mg/dL Med Orders - Current: Current Medications Acetaminophen (Tylenol) 650 mg PO Q4H PRN PRN Reason: Pain (Mild 1-3)/fever Last Admin: 03/04/17 21:19 Dose: 650 mg Docusate Sodium (Colace) 100 mg PO BID PRN PRN Reason: Constipation Ferrous Sulfate (Ferrous Sulfate) 325 mg PO BIDMEALS [facility] Last Admin: 03/07/17 07:39 Dose: 325 mg Folic Acid (Folic Acid) 1 mg PO DAILY [facility] Last Admin: 03/07/17 08:54 Dose: 1 mg Levothyroxine Sodium (Levothyroxine) 25 mcg PO [id number] [facility] Last Admin: 03/05/17 06:36 Dose: Not Given Levothyroxine Sodium (Levothyroxine) 150 mcg PO [id number] [facility] Last Admin: 03/07/17 06:52 Dose: 150 mcg Magnesium Oxide (Magnesium Oxide) 400 mg PO BID [facility] Last Admin: 03/07/17 08:54 Dose: 400 mg Oxycodone HCl (Oxycodone) 5 mg PO Q4H PRN PRN Reason: Pain (moderate 4-6) Last Admin: 03/07/17 12:39 Dose: 5 mg Pantoprazole Sodium (Protonix) 40 mg PO ACBREAKFAST [facility] Last Admin: 03/07/17 06:52 Dose: 40 mg Polysaccharide Iron Complex (Ferrex 150) 150 mg PO DAILY [facility] Last Admin: 03/07/17 08:54 Dose: 150 mg Prednisone (Prednisone) 5 mg PO BIDMEALS [facility] Last Admin: 03/07/17 07:39 Dose: 5 mg Sodium Chloride (Saline Flush) 10 ml FLUSH ASDIRECTED PRN PRN Reason: Keep Vein Open Last Admin: 03/01/17 14:14 Dose: 10 ml Sodium Chloride (Saline Flush) 2.5 ml FLUSH ASDIRECTED PRN PRN Reason: Keep Vein Open Last Admin: 03/01/17 14:13 Dose: 2.5 ml Sodium Phosphate (Neutra-Phos) 250 mg PO QID [facility] Last Admin: 03/07/17 12:39 Dose: 250 mg Tamsulosin HCl (Flomax) 0.4 mg PO DAILY [facility] Last Admin: 03/07/17 08:54 Dose: 0.4 mg Wound Care/Dressing Products (Duoderm Cgf) 1 each TOP ASDIRECTED [facility] Last Admin: 03/06/17 17:12 Dose: 1 each Discontinued Medications Acetaminophen (Tylenol) 650 mg PO NOW ONE Stop: 03/03/17 11:45 Last Admin: 03/03/17 13:23 Dose: 650 mg Calcium Gluconate (Calcium Gluconate) 1 gm IV ONETIME ONE Stop: 03/02/17 11:45 Last Admin: 03/02/17 12:22 Dose: 1 gm Diphenhydramine HCl (Benadryl) 50 mg PO ONETIME ONE Stop: 03/03/17 11:45 Last Admin: 03/03/17 13:23 Dose: 50 mg Enoxaparin Sodium (Lovenox) 30 mg SUBCUT DAILY [facility] Last Admin: 03/02/17 09:08 Dose: 30 mg Furosemide (Lasix) 20 mg IVPUSH ONCALL [facility] Stop: 03/04/17 11:46 Sodium Chloride (Normal Saline) 1,000 mls @ 83 mls/hr IV ASDIRECTED [facility] Last Admin: 03/05/17 13:24 Dose: 999 mls/hr Potassium Chloride 20 meq/ (Sodium Chloride) 260 mls @ 130 mls/hr IV ASDIRECTED [facility] Last Admin: 03/01/17 16:06 Dose: 130 mls/hr Sodium Chloride (Normal Saline) 1,000 mls @ 100 mls/hr IV ASDIRECTED [facility] Magnesium Sulfate 2 gm/ Premix 50 mls @ 50 mls/hr IV ONETIME ONE Stop: 03/01/17 18:23 Last Admin: 03/01/17 18:05 Dose: 50 mls/hr Potassium Chloride/Sodium Chloride (Normal Saline With 20 Meq Kcl) 1,000 mls @ 75 mls/hr IV ASDIRECTED [facility] Last Infusion: 03/01/17 21:01 Dose: 75 mls/hr Potassium Chloride/Sodium Chloride (Normal Saline With 20 Meq Kcl) 1,000 mls @ 100 mls/hr IV ASDIRECTED [facility] Last Admin: 03/02/17 05:46 Dose: 100 mls/hr Sodium Chloride (Normal Saline) 1,000 mls @ 100 mls/hr IV ASDIRECTED [facility] Last Admin: 03/04/17 16:55 Dose: 100 mls/hr Magnesium Sulfate 4 gm/ Premix 100 mls @ 50 mls/hr IV ONETIME ONE Stop: 03/02/17 11:14 Last Admin: 03/02/17 09:34 Dose: 50 mls/hr Sodium Chloride (Normal Saline) 1,000 mls @ 999 mls/hr IV ONETIME ONE Stop: 03/03/17 02:08 Last Admin: 03/03/17 01:24 Dose: 999 mls/hr Pantoprazole Sodium 40 mg/ (Sodium Chloride) 10 mls @ 300 mls/hr IVPUSH Q12H [facility] Last Admin: 03/05/17 09:39 Dose: 300 mls/hr Iron Sucrose 100 mg/ Sodium (Chloride) 105 mls @ 400 mls/hr IV ONETIME ONE Stop: 03/04/17 10:19 Last Admin: 03/04/17 11:15 Dose: 400 mls/hr Magnesium Sulfate 2 gm/ Premix 50 mls @ 50 mls/hr IV ONETIME ONE Stop: 03/04/17 12:16 Last Admin: 03/04/17 12:03 Dose: 50 mls/hr Levothyroxine Sodium (Levothyroxine) 150 mcg PO ACBREAKFAST [facility] Last Admin: 03/02/17 06:34 Dose: 150 mcg Levothyroxine Sodium (Levothyroxine) 25 mcg PO ACBREAKFAST [facility] Last Admin: 03/03/17 06:30 Dose: 25 mcg Metoprolol Tartrate (Lopressor) 25 mg PO BID [facility] Metoprolol Tartrate (Lopressor) 5 mg IVPUSH ONETIME ONE Stop: 03/02/17 09:14 Last Admin: 03/02/17 09:42 Dose: Not Given Metoprolol Tartrate (Lopressor) 5 mg IVPUSH ONETIME ONE Stop: 03/02/17 09:31 Last Admin: 03/02/17 09:41 Dose: 5 mg Metoprolol Tartrate (Lopressor) 25 mg PO Q12HR [facility] Last Admin: 03/03/17 09:04 Dose: Not Given Morphine Sulfate (Morphine) 2 mg IVPUSH Q2H PRN PRN Reason: Pain (severe 7-10) Stop: 03/02/17 17:20 Potassium Chloride (Klor-Con M20) 40 meq PO ONETIME ONE Stop: 03/01/17 14:40 Last Admin: 03/01/17 16:06 Dose: 40 meq Wound Care/Dressing Products (Duoderm Cgf) 1 each TOP ASDIRECTED ONE Stop: 03/05/17 13:36 Last Admin: 03/05/17 13:53 Dose: 1 each - Exam General: Alert, Oriented, Cooperative Lungs: Normal Respiratory Effort - Problem List & Annotations (1) Rhabdomyolysis SNOMED Code(s): 523285486 Code(s): M62.82 - RHABDOMYOLYSIS Status: Acute Priority: High Current Visit: Yes Qualifiers: Rhabdomyolysis type: traumatic Encounter type: initial encounter Qualified Code(s): T79.6XXA - Traumatic ischemia of muscle, initial encounter (2) Anemia SNOMED Code(s): 363392157 Code(s): D64.9 - ANEMIA, UNSPECIFIED Status: Acute Current Visit: Yes (3) Physical deconditioning SNOMED Code(s): 68514193902015 Code(s): R53.81 - OTHER MALAISE Status: Acute Current Visit: Yes (4) Gait disturbance SNOMED Code(s): 20917002 Code(s): R26.9 - UNSPECIFIED ABNORMALITIES OF GAIT AND MOBILITY Status: Acute Current Visit: Yes (5) Physical deconditioning SNOMED Code(s): 80228908958537 Code(s): R53.81 - OTHER MALAISE Status: Acute Current Visit: Yes - Problem List Review Problem List Initiated/Reviewed/Updated: Yes - My Orders Last 24 Hours: My Active Orders 03/06/17 17:00 Hydrocolloid Dressing [DuoDerm CGF] 1 each TOP ASDIRECTED 03/06/17 17:45 Ferrous Sulfate 325 mg PO BIDMEALS 03/08/17 05:11 CBC WITH AUTO DIFF [HEME] AM 03/09/17 05:11 CBC WITH AUTO DIFF [HEME] AM - Assessment Assessment:: 03/06/2017 - Plan Plan:: The patient is a 71-year-old gentleman who was admitted secondary to rhabdomyolysis. The patient had fallen out of bed and had yandy undiscovered for several hours. I've ordered a 2-D echocardiogram to check for wall motion abnormalities as decreased ejection fraction may have contributed to his passing out. I've recommended that the patient not have Lasix in order for the blood to act as a blood volume business development engineer and pull extracellular fluid into the capillary system. I will order iron sucrose for the patient. Prior to blood transfusion the patient has been advised of the risk, benefits and alternatives of blood transfusion and blood products. He is agreed to the blood transfusion. The patient will have his vital signs monitored he will continue on telemetry. The patient reportedly had fallen out of bed and had yandy undiscovered for approximately 8 hours. He did have evidence of elevation of his CPK and he is placed on IV fluids. The patient became anemic and he had 2 units of packed red blood cells transfused. The patient's vital signs have normalized today and his blood pressure is 128/61. Patient's oxygen saturations remained low. We are currently pending information with regards to the 2-D echocardiogram completed. 03/05/2016 he refused to consider [facility] home Will continue to monitor gait stability over the weekend with disposition more likely on Wednesday duoderm History of anemia thought secondary to GI bleeding monitor CBC will need to consider outpatient endoscopic evaluation. Ender Stone MD 03/06/2017 add Fe for Fe deficiency Hg stabilizing see above note Ender Stone MD 03/07/2017 CBC in am. he refuses [place]. possible discharge home with home health on Wednesday. Ender kern MD
--- NOTE | 2017-03-07 19:45 | PCM.SN ---
- Free Text/Narrative Note: I spoke with his sister at the bedside this pm. He is having periodic stabbing pain suggestive of muscle spasms. Will order flexeril. Anticipated discharge home on Wednesday. Ender Stone MD
[2017-03-07] MEDS: Cyclobenzaprine 5 MG Tab PO SCH (21:56)
[2017-03-08] MEDS: Phosphorus #1 250 MG Tab PO SCH ×4 (00:22→17:13)
[2017-03-08] MEDS: Pantoprazole 40 MG Tab.CR PO SCH (06:30)
[2017-03-08] MEDS: Levothyroxine 25 MCG Tab PO SCH (06:31)
[2017-03-08] MEDS: Folic Acid 1 MG Tab PO SCH (08:12)
[2017-03-08] MEDS: Cyclobenzaprine 5 MG Tab PO SCH ×2 (08:12→21:01)
[2017-03-08] MEDS: Tamsulosin 0.4 MG Cap.ER PO SCH (08:13)
[2017-03-08] MEDS: Ferrous Sulfate 325 MG Tab PO SCH ×2 (08:13→17:13)
[2017-03-08] MEDS: predniSONE 5 MG Tab PO SCH ×2 (08:13→17:13)
[2017-03-08] MEDS: Iron Polysaccharides Complex 150 MG Cap PO SCH (08:13)
[2017-03-08] MEDS: Magnesium Oxide 400 MG Tab PO SCH ×2 (08:13→21:01)
[2017-03-08] MEDS: oxyCODONE 5 MG Tab PO PRN ×2 (10:27→21:00)
[2017-03-08] MEDS: Furosemide 40 MG Tab PO SCH (17:10)
[2017-03-08] MEDS: Metoprolol Succinate 25 MG Tab.ER PO SCH (17:12)
--- NOTE | 2017-03-08 17:43 | PCM.PN ---
- General Info Date of Service: 03/08/17 Subjective Update: no new complaints. He has agreed to consider [facility]. - Patient Data Vitals - Most Recent: Last Vital Signs Temp 97.3 F 03/08/17 16:00 Pulse 76 03/08/17 17:12 Resp 20 03/08/17 16:00 BP 104/52 L 03/08/17 17:12 Pulse Ox 94 L 03/08/17 16:00 Weight - Most Recent: 76.5 kg I&O - Last 24 Hours: Intake & Output 03/08/17 03/08/17 03/08/17 06:59 14:59 22:59 Intake Total 870 1290 Output Total 1050 2400 Balance -180 -1110 Lab Results Last 24 Hours: Laboratory Results - last 24 hr 03/08/17 Range/Units 05:10 WBC 10.30 (4.0-11.0) K/uL RBC 3.03 L (4.50-5.90) M/uL Hgb 9.0 L (13.0-17.0) g/dL Hct 27.3 L (38.0-50.0) % MCV 90.1 (80.0-98.0) fL MCH 29.7 (27.0-32.0) pg MCHC 33.0 (31.0-37.0) g/dL RDW Std Deviation 69.3 H (28.0-62.0) fl RDW Coeff of Kristy 21 H (11.0-15.0) % Plt Count 225 (150-400) K/uL MPV 9.50 (7.40-12.00) fL Add Manual Diff YES Neutrophils % (Manual) 67 (48.0-80.0) % Band Neutrophils % 7 % Lymphocytes % (Manual) 19 (16.0-40.0) % Monocytes % (Manual) 7 (0.0-15.0) % Nucleated RBC % 0.0 /100WBC Absolute Seg Neuts 6.9 Band Neutrophils # 0.7 Lymphocytes # (Manual) 2.0 Monocytes # (Manual) 0.7 Nucleated RBCs # 0 K/uL Med Orders - Current: Current Medications Acetaminophen (Tylenol) 650 mg PO Q4H PRN PRN Reason: Pain (Mild 1-3)/fever Last Admin: 09/14/17 21:19 Dose: 650 mg Cyclobenzaprine HCl (Flexeril) 5 mg PO BID [facility] Last Admin: 03/08/17 08:12 Dose: 5 mg Docusate Sodium (Colace) 100 mg PO BID PRN PRN Reason: Constipation Ferrous Sulfate (Ferrous Sulfate) 325 mg PO BIDMEALS [facility] Last Admin: 03/08/17 17:13 Dose: 325 mg Folic Acid (Folic Acid) 1 mg PO DAILY [facility] Last Admin: 03/08/17 08:12 Dose: 1 mg Furosemide (Lasix) 40 mg PO DAILY [facility] Last Admin: 03/08/17 17:10 Dose: 40 mg Levothyroxine Sodium (Levothyroxine) 25 mcg PO [id number] [facility] Last Admin: 03/08/17 06:31 Dose: 25 mcg Levothyroxine Sodium (Levothyroxine) 150 mcg PO [id number] [facility] Last Admin: 03/07/17 06:52 Dose: 150 mcg Magnesium Oxide (Magnesium Oxide) 400 mg PO BID [facility] Last Admin: 03/08/17 08:13 Dose: 400 mg Metoprolol Succinate (Toprol Xl) 25 mg PO DAILY [facility] Last Admin: 03/08/17 17:12 Dose: 25 mg Oxycodone HCl (Oxycodone) 5 mg PO Q4H PRN PRN Reason: Pain (moderate 4-6) Last Admin: 03/08/17 10:27 Dose: 5 mg Pantoprazole Sodium (Protonix) 40 mg PO ACBREAKFAST [facility] Last Admin: 03/08/17 06:30 Dose: 40 mg Polysaccharide Iron Complex (Ferrex 150) 150 mg PO DAILY [facility] Last Admin: 03/08/17 08:13 Dose: 150 mg Prednisone (Prednisone) 5 mg PO BIDMEALS [facility] Last Admin: 03/08/17 17:13 Dose: 5 mg Sodium Chloride (Saline Flush) 10 ml FLUSH ASDIRECTED PRN PRN Reason: Keep Vein Open Last Admin: 03/01/17 14:14 Dose: 10 ml Sodium Chloride (Saline Flush) 2.5 ml FLUSH ASDIRECTED PRN PRN Reason: Keep Vein Open Last Admin: 03/01/17 14:13 Dose: 2.5 ml Sodium Phosphate (Neutra-Phos) 250 mg PO QID [facility] Last Admin: 03/08/17 17:13 Dose: 250 mg Tamsulosin HCl (Flomax) 0.4 mg PO DAILY [facility] Last Admin: 03/08/17 08:13 Dose: 0.4 mg Wound Care/Dressing Products (Duoderm Cgf) 1 each TOP ASDIRECTED [facility] Last Admin: 03/06/17 17:12 Dose: 1 each Discontinued Medications Acetaminophen (Tylenol) 650 mg PO NOW ONE Stop: 03/03/17 11:45 Last Admin: 03/03/17 13:23 Dose: 650 mg Calcium Gluconate (Calcium Gluconate) 1 gm IV ONETIME ONE Stop: 03/02/17 11:45 Last Admin: 03/02/17 12:22 Dose: 1 gm Diphenhydramine HCl (Benadryl) 50 mg PO ONETIME ONE Stop: 03/03/17 11:45 Last Admin: 03/03/17 13:23 Dose: 50 mg Enoxaparin Sodium (Lovenox) 30 mg SUBCUT DAILY [facility] Last Admin: 03/02/17 09:08 Dose: 30 mg Furosemide (Lasix) 20 mg IVPUSH ONCALL [facility] Stop: 03/04/17 11:46 Sodium Chloride (Normal Saline) 1,000 mls @ 83 mls/hr IV ASDIRECTED [facility] Last Admin: 03/05/17 13:24 Dose: 999 mls/hr Potassium Chloride 20 meq/ (Sodium Chloride) 260 mls @ 130 mls/hr IV ASDIRECTED [facility] Last Admin: 03/01/17 16:06 Dose: 130 mls/hr Sodium Chloride (Normal Saline) 1,000 mls @ 100 mls/hr IV ASDIRECTED [facility] Magnesium Sulfate 2 gm/ Premix 50 mls @ 50 mls/hr IV ONETIME ONE Stop: 03/01/17 18:23 Last Admin: 03/01/17 18:05 Dose: 50 mls/hr Potassium Chloride/Sodium Chloride (Normal Saline With 20 Meq Kcl) 1,000 mls @ 75 mls/hr IV ASDIRECTED [facility] Last Infusion: 03/01/17 21:01 Dose: 75 mls/hr Potassium Chloride/Sodium Chloride (Normal Saline With 20 Meq Kcl) 1,000 mls @ 100 mls/hr IV ASDIRECTED [facility] Last Admin: 03/02/17 05:46 Dose: 100 mls/hr Sodium Chloride (Normal Saline) 1,000 mls @ 100 mls/hr IV ASDIRECTED [facility] Last Admin: 03/04/17 16:55 Dose: 100 mls/hr Magnesium Sulfate 4 gm/ Premix 100 mls @ 50 mls/hr IV ONETIME ONE Stop: 03/02/17 11:14 Last Admin: 03/02/17 09:34 Dose: 50 mls/hr Sodium Chloride (Normal Saline) 1,000 mls @ 999 mls/hr IV ONETIME ONE Stop: 03/03/17 02:08 Last Admin: 03/03/17 01:24 Dose: 999 mls/hr Pantoprazole Sodium 40 mg/ (Sodium Chloride) 10 mls @ 300 mls/hr IVPUSH Q12H [facility] Last Admin: 03/05/17 09:39 Dose: 300 mls/hr Iron Sucrose 100 mg/ Sodium (Chloride) 105 mls @ 400 mls/hr IV ONETIME ONE Stop: 03/04/17 10:19 Last Admin: 03/04/17 11:15 Dose: 400 mls/hr Magnesium Sulfate 2 gm/ Premix 50 mls @ 50 mls/hr IV ONETIME ONE Stop: 03/04/17 12:16 Last Admin: 03/04/17 12:03 Dose: 50 mls/hr Levothyroxine Sodium (Levothyroxine) 150 mcg PO ACBREAKFAST [facility] Last Admin: 03/02/17 06:34 Dose: 150 mcg Levothyroxine Sodium (Levothyroxine) 25 mcg PO ACBREAKFAST [facility] Last Admin: 03/03/17 06:30 Dose: 25 mcg Metoprolol Tartrate (Lopressor) 25 mg PO BID [facility] Metoprolol Tartrate (Lopressor) 5 mg IVPUSH ONETIME ONE Stop: 03/02/17 09:14 Last Admin: 03/02/17 09:42 Dose: Not Given Metoprolol Tartrate (Lopressor) 5 mg IVPUSH ONETIME ONE Stop: 03/02/17 09:31 Last Admin: 03/02/17 09:41 Dose: 5 mg Metoprolol Tartrate (Lopressor) 25 mg PO Q12HR [facility] Last Admin: 03/03/17 09:04 Dose: Not Given Morphine Sulfate (Morphine) 2 mg IVPUSH Q2H PRN PRN Reason: Pain (severe 7-10) Stop: 03/02/17 17:20 Potassium Chloride (Klor-Con M20) 40 meq PO ONETIME ONE Stop: 03/01/17 14:40 Last Admin: 03/01/17 16:06 Dose: 40 meq Wound Care/Dressing Products (Duoderm Cgf) 1 each TOP ASDIRECTED ONE Stop: 03/05/17 13:36 Last Admin: 03/05/17 13:53 Dose: 1 each - Exam General: Alert, Oriented, Cooperative Lungs: Clear to Auscultation, Normal Respiratory Effort Cardiovascular: Regular Rate, Regular Rhythm - Problem List & Annotations (1) Rhabdomyolysis SNOMED Code(s): 878940159 Code(s): M62.82 - RHABDOMYOLYSIS Status: Acute Priority: High Current Visit: Yes Qualifiers: Rhabdomyolysis type: traumatic Encounter type: initial encounter Qualified Code(s): T79.6XXA - Traumatic ischemia of muscle, initial encounter (2) Anemia SNOMED Code(s): 417643408 Code(s): D64.9 - ANEMIA, UNSPECIFIED Status: Acute Current Visit: Yes (3) Physical deconditioning SNOMED Code(s): 66520376821932 Code(s): R53.81 - OTHER MALAISE Status: Acute Current Visit: Yes (4) Gait disturbance SNOMED Code(s): 69481269 Code(s): R26.9 - UNSPECIFIED ABNORMALITIES OF GAIT AND MOBILITY Status: Acute Current Visit: Yes (5) Physical deconditioning SNOMED Code(s): 56121922032042 Code(s): R53.81 - OTHER MALAISE Status: Acute Current Visit: Yes - Problem List Review Problem List Initiated/Reviewed/Updated: Yes - My Orders Last 24 Hours: My Active Orders 03/07/17 21:00 Cyclobenzaprine [Flexeril] 5 mg PO BID 03/09/17 05:11 CBC WITH AUTO DIFF [HEME] AM - Assessment Assessment:: 03/06/2017 - Plan Plan:: The patient is a 71-year-old gentleman who was admitted secondary to rhabdomyolysis. The patient had fallen out of bed and had yandy undiscovered for several hours. I've ordered a 2-D echocardiogram to check for wall motion abnormalities as decreased ejection fraction may have contributed to his passing out. I've recommended that the patient not have Lasix in order for the blood to act as a blood volume recessing machine operator and pull extracellular fluid into the capillary system. I will order iron sucrose for the patient. Prior to blood transfusion the patient has been advised of the risk, benefits and alternatives of blood transfusion and blood products. He is agreed to the blood transfusion. The patient will have his vital signs monitored he will continue on telemetry. The patient reportedly had fallen out of bed and had yandy undiscovered for approximately 8 hours. He did have evidence of elevation of his CPK and he is placed on IV fluids. The patient became anemic and he had 2 units of packed red blood cells transfused. The patient's vital signs have normalized today and his blood pressure is 128/61. Patient's oxygen saturations remained low. We are currently pending information with regards to the 2-D echocardiogram completed. 03/05/2016 he refused to consider [facility] home Will continue to monitor gait stability over the weekend with disposition more likely on Wednesday duoderm History of anemia thought secondary to GI bleeding monitor CBC will need to consider outpatient endoscopic evaluation. Ender Stone MD 03/06/2017 add Fe for Fe deficiency Hg stabilizing see above note Ender Stone MD 03/07/2017 CBC in am. he refuses [facility]. possible discharge home with home health on Wednesday. Ender kern MD 03/08/2017 [facility] likely tomorrow. I spoke with DR Edwards who agrees to see him in consultaton regarding clearing before endoscopy to evaluate anemia and prior gi bleeding. I spoke with Dr Varun Mac who will see the patient at [facility]. continue present care for now. Ender Stone MD
[2017-03-09] MEDS: Phosphorus #1 250 MG Tab PO SCH ×4 (00:24→17:58)
[2017-03-09] MEDS: Pantoprazole 40 MG Tab.CR PO SCH (06:30)
[2017-03-09] MEDS: Levothyroxine 150 MCG Tab PO SCH (06:31)
--- NOTE | 2017-03-09 07:40 | CONS ---
DATE OF CONSULTATION: 03/08/2017 DATE OF : 1945 PRIMARY CARE PHYSICIAN: None PCP REASON FOR CONSULTATION: Atrial fibrillation. HISTORY OF PRESENT ILLNESS: This is a 71-year-old male with a history of kidney stones; former smoker; sleep apnea; hypothyroidism; and severe rheumatoid arthritis, on steroids, who presented to the hospital at this time due to fall, deconditioning, weakness, and dehydration. He was found to have rhabdomyolysis with dehydration and hypotension, and his home medications include metoprolol and Lasix 40 mg twice a day. With the low blood pressure, Lasix was stopped, as well as metoprolol, and then he got hydration for that. His blood pressure seemed to be improving, and he will be discharged to a [facility] for the rehabilitation tomorrow. Also he was found to have a worsening anemia with the hemoglobin down to 7.7 and he received 2 units of blood. During the hospitalization, he was found to have the paroxysmal atrial fibrillation. However, his heart rate is not that fast. It is around 70 to 90s, and this is the first time that he was found to have atrial fibrillation. He also has an echocardiogram which showed preserved ejection fraction as well. PAST MEDICAL HISTORY: Include: Kidney stones, hypothyroidism, sleep apnea, and severe rheumatoid arthritis. ALLERGIES: He is allergic to penicillin. CURRENT MEDICATIONS: Include: Levothyroxine 150 mcg once a day and prednisone as well. FAMILY HISTORY: Mother had a history of hypertension and stroke, and father had a history of arthritis and diabetes. SOCIAL HISTORY: Occasional drinking, former smoker. No drug use. REVIEW OF SYSTEMS: Except indicated in the HPI. Otherwise, review of systems has been negative. PHYSICAL EXAMINATION: VITAL SIGNS: Initial blood pressure was 89/50 and currently blood pressure is 108/52, O2 saturation is 91%, respiratory rate is 20, and heart rate is 81, sinus rhythm. HEENT: Not pale. No jaundice. NECK: I did not appreciate any JVD. LUNGS: Very minimal crackles. No wheezing. ABDOMEN: Soft, nontender. Bowel sounds are present. No hepatosplenomegaly. EXTREMITIES: Legs have very trace edema. However, the right leg is slightly more swollen than the left leg, but no pain. No tenderness. LABORATORY DATA AND IMAGING STUDIES: Investigations: CBC initially with a hemoglobin of 7.7, and after receiving 2 units of blood, it was increased to 9.0 with a hematocrit of 27.0, WBCs are 10, and platelets are 225,000. Sodium 132, potassium 4.1, chloride 102, bicarbonate 24, BUN 9, and creatinine 0.6. CPK is 354 coming down to 121. Telemetry shows atrial fibrillation, but currently he is in sinus rhythm. ASSESSMENT AND PLAN: This is a 71-year-old male with a history of hypothyroidism, history of severe rheumatoid arthritis, as well as history of atrial tachycardia and diastolic dysfunction, and history of heart failure in the past, here in the hospital because of deconditioning with worsening anemia, questionable rectal bleeding, and he is scheduled to have a colonoscopy and endoscopy as an outpatient. However, due to the new-onset of atrial fibrillation, he was consulted to me for preop clearance. He is not in heart failure currently, and his blood pressure seems to be improved. I will start him on a low dose of Lasix 40 mg once a day, as well as metoprolol 25 mg once a day for his atrial fibrillation. Regarding anticoagulation, his technical CHADS-VASc Score is 2, so he need a long-term anticoagulation. However, with the worsening anemia, questionable rectal bleeding, and pending colonoscopy and esophagogastroduodenoscopy, I would re- address regarding anticoagulation after colonoscopy and endoscopy, and we will go from there. I explained the risks of stroke from the atrial fibrillation to the patient and gave him the handout as well. No further testing prior to esophagogastroduodenoscopy and colonoscopy. STEFFI / LOLA /[id number]
[2017-03-09] MEDS: predniSONE 5 MG Tab PO SCH ×2 (08:44→17:58)
[2017-03-09] MEDS: Tamsulosin 0.4 MG Cap.ER PO SCH (08:44)
[2017-03-09] MEDS: Magnesium Oxide 400 MG Tab PO SCH ×2 (08:44→20:36)
[2017-03-09] MEDS: Cyclobenzaprine 5 MG Tab PO SCH ×2 (08:44→20:36)
[2017-03-09] MEDS: Iron Polysaccharides Complex 150 MG Cap PO SCH (08:44)
[2017-03-09] MEDS: Ferrous Sulfate 325 MG Tab PO SCH ×2 (08:44→17:57)
[2017-03-09] MEDS: Folic Acid 1 MG Tab PO SCH (08:44)
[2017-03-09] MEDS: Metoprolol Succinate 25 MG Tab.ER PO SCH ×2 (08:45→20:36)
[2017-03-09] MEDS: Furosemide 40 MG Tab PO SCH (09:04)
[2017-03-09] MEDS: Hydrocolloid Dressing 4x4 Bandage TOP SCH (09:35)
[2017-03-09] MEDS ORDERED: Metoprolol Tartrate 5 MG/5 ML SDV IVPUSH SCH (10:05)
[2017-03-09] MEDS ORDERED: Metoprolol Succinate 25 MG Tab.ER PO ONE (10:05)
[2017-03-09] MEDS: oxyCODONE 5 MG Tab PO PRN ×2 (12:11→20:38)
--- NOTE | 2017-03-09 15:58 | PCM.PN ---
- General Info Date of Service: 03/09/17 Subjective Update: he had a brief episode today of atrial fibrillation with RVR. - Patient Data Vitals - Most Recent: Last Vital Signs Temp 98.9 F 03/09/17 12:00 Pulse 72 03/09/17 12:00 Resp 19 03/09/17 12:00 BP 110/54 L 03/09/17 12:00 Pulse Ox 93 L 03/09/17 12:00 Weight - Most Recent: 76.5 kg I&O - Last 24 Hours: Intake & Output 03/09/17 03/09/17 03/09/17 06:59 14:59 22:59 Intake Total 1400 Output Total 3790 Balance -2390 Lab Results Last 24 Hours: Laboratory Results - last 24 hr 03/09/17 Range/Units 04:55 WBC 11.44 H (4.0-11.0) K/uL RBC 3.11 L (4.50-5.90) M/uL Hgb 9.6 L (13.0-17.0) g/dL Hct 28.2 L (38.0-50.0) % MCV 90.7 (80.0-98.0) fL MCH 30.9 (27.0-32.0) pg MCHC 34.0 (31.0-37.0) g/dL RDW Std Deviation 70.4 H (28.0-62.0) fl RDW Coeff of Kristy 22 H (11.0-15.0) % Plt Count 207 (150-400) K/uL MPV 9.50 (7.40-12.00) fL Add Manual Diff YES Neutrophils % (Manual) 64 (48.0-80.0) % Band Neutrophils % 5 % Lymphocytes % (Manual) 22 (16.0-40.0) % Monocytes % (Manual) 9 (0.0-15.0) % Nucleated RBC % 0.0 /100WBC Absolute Seg Neuts 7.3 Band Neutrophils # 0.6 Lymphocytes # (Manual) 2.5 Monocytes # (Manual) 1.0 Nucleated RBCs # 0 K/uL Med Orders - Current: Current Medications Acetaminophen (Tylenol) 650 mg PO Q4H PRN PRN Reason: Pain (Mild 1-3)/fever Last Admin: 03/04/17 21:19 Dose: 650 mg Cyclobenzaprine HCl (Flexeril) 5 mg PO BID [facility] Last Admin: 03/09/17 08:44 Dose: 5 mg Docusate Sodium (Colace) 100 mg PO BID PRN PRN Reason: Constipation Ferrous Sulfate (Ferrous Sulfate) 325 mg PO BIDMEALS [facility] Last Admin: 03/09/17 08:44 Dose: 325 mg Folic Acid (Folic Acid) 1 mg PO DAILY [facility] Last Admin: 03/09/17 08:44 Dose: 1 mg Furosemide (Lasix) 40 mg PO DAILY [facility] Last Admin: 03/09/17 09:04 Dose: 40 mg Levothyroxine Sodium (Levothyroxine) 25 mcg PO MoWeFr@0730 [facility] Last Admin: 03/08/17 06:31 Dose: 25 mcg Levothyroxine Sodium (Levothyroxine) 150 mcg PO SuTuThSa@0730 [facility] Last Admin: 03/09/17 06:31 Dose: 150 mcg Magnesium Oxide (Magnesium Oxide) 400 mg PO BID [facility] Last Admin: 03/09/17 08:44 Dose: 400 mg Metoprolol Succinate (Toprol Xl) 25 mg PO BID [facility] Metoprolol Tartrate (Lopressor) 5 mg IVPUSH ONETIME [facility] Oxycodone HCl (Oxycodone) 5 mg PO Q4H PRN PRN Reason: Pain (moderate 4-6) Last Admin: 03/09/17 12:11 Dose: 5 mg Pantoprazole Sodium (Protonix) 40 mg PO ACBREAKFAST [facility] Last Admin: 03/09/17 06:30 Dose: 40 mg Polysaccharide Iron Complex (Ferrex 150) 150 mg PO DAILY [facility] Last Admin: 03/09/17 08:44 Dose: 150 mg Prednisone (Prednisone) 5 mg PO BIDMEALS [facility] Last Admin: 03/09/17 08:44 Dose: 5 mg Sodium Chloride (Saline Flush) 10 ml FLUSH ASDIRECTED PRN PRN Reason: Keep Vein Open Last Admin: 03/01/17 14:14 Dose: 10 ml Sodium Chloride (Saline Flush) 2.5 ml FLUSH ASDIRECTED PRN PRN Reason: Keep Vein Open Last Admin: 03/01/17 14:13 Dose: 2.5 ml Sodium Phosphate (Neutra-Phos) 250 mg PO QID [facility] Last Admin: 03/09/17 12:06 Dose: 250 mg Tamsulosin HCl (Flomax) 0.4 mg PO DAILY [facility] Last Admin: 03/09/17 08:44 Dose: 0.4 mg Wound Care/Dressing Products (Duoderm Cgf) 1 each TOP ASDIRECTED [facility] Last Admin: 03/09/17 09:35 Dose: 1 each Discontinued Medications Acetaminophen (Tylenol) 650 mg PO NOW ONE Stop: 03/03/17 11:45 Last Admin: 03/03/17 13:23 Dose: 650 mg Calcium Gluconate (Calcium Gluconate) 1 gm IV ONETIME ONE Stop: 03/02/17 11:45 Last Admin: 03/02/17 12:22 Dose: 1 gm Diphenhydramine HCl (Benadryl) 50 mg PO ONETIME ONE Stop: 03/03/17 11:45 Last Admin: 03/03/17 13:23 Dose: 50 mg Enoxaparin Sodium (Lovenox) 30 mg SUBCUT DAILY [facility] Last Admin: 03/02/17 09:08 Dose: 30 mg Furosemide (Lasix) 20 mg IVPUSH ONCALL [facility] Stop: 03/04/17 11:46 Sodium Chloride (Normal Saline) 1,000 mls @ 83 mls/hr IV ASDIRECTED [facility] Last Admin: 03/05/17 13:24 Dose: 999 mls/hr Potassium Chloride 20 meq/ (Sodium Chloride) 260 mls @ 130 mls/hr IV ASDIRECTED [facility] Last Admin: 03/01/17 16:06 Dose: 130 mls/hr Sodium Chloride (Normal Saline) 1,000 mls @ 100 mls/hr IV ASDIRECTED [facility] Magnesium Sulfate 2 gm/ Premix 50 mls @ 50 mls/hr IV ONETIME ONE Stop: 03/01/17 18:23 Last Admin: 03/01/17 18:05 Dose: 50 mls/hr Potassium Chloride/Sodium Chloride (Normal Saline With 20 Meq Kcl) 1,000 mls @ 75 mls/hr IV ASDIRECTED [facility] Last Infusion: 03/01/17 21:01 Dose: 75 mls/hr Potassium Chloride/Sodium Chloride (Normal Saline With 20 Meq Kcl) 1,000 mls @ 100 mls/hr IV ASDIRECTED [facility] Last Admin: 03/02/17 05:46 Dose: 100 mls/hr Sodium Chloride (Normal Saline) 1,000 mls @ 100 mls/hr IV ASDIRECTED [facility] Last Admin: 03/04/17 16:55 Dose: 100 mls/hr Magnesium Sulfate 4 gm/ Premix 100 mls @ 50 mls/hr IV ONETIME ONE Stop: 03/02/17 11:14 Last Admin: 03/02/17 09:34 Dose: 50 mls/hr Sodium Chloride (Normal Saline) 1,000 mls @ 999 mls/hr IV ONETIME ONE Stop: 03/03/17 02:08 Last Admin: 03/03/17 01:24 Dose: 999 mls/hr Pantoprazole Sodium 40 mg/ (Sodium Chloride) 10 mls @ 300 mls/hr IVPUSH Q12H [facility] Last Admin: 03/05/17 09:39 Dose: 300 mls/hr Iron Sucrose 100 mg/ Sodium (Chloride) 105 mls @ 400 mls/hr IV ONETIME ONE Stop: 03/04/17 10:19 Last Admin: 03/04/17 11:15 Dose: 400 mls/hr Magnesium Sulfate 2 gm/ Premix 50 mls @ 50 mls/hr IV ONETIME ONE Stop: 03/04/17 12:16 Last Admin: 03/04/17 12:03 Dose: 50 mls/hr Levothyroxine Sodium (Levothyroxine) 150 mcg PO ACBREAKFAST [facility] Last Admin: 03/02/17 06:34 Dose: 150 mcg Levothyroxine Sodium (Levothyroxine) 25 mcg PO ACBREAKFAST [facility] Last Admin: 03/03/17 06:30 Dose: 25 mcg Metoprolol Succinate (Toprol Xl) 25 mg PO DAILY [facility] Last Admin: 03/09/17 08:45 Dose: 25 mg Metoprolol Succinate (Toprol Xl) 25 mg PO ONETIME ONE Stop: 03/09/17 10:06 Last Admin: 03/09/17 11:11 Dose: Not Given Metoprolol Tartrate (Lopressor) 25 mg PO BID [facility] Metoprolol Tartrate (Lopressor) 5 mg IVPUSH ONETIME ONE Stop: 03/02/17 09:14 Last Admin: 03/02/17 09:42 Dose: Not Given Metoprolol Tartrate (Lopressor) 5 mg IVPUSH ONETIME ONE Stop: 03/02/17 09:31 Last Admin: 03/02/17 09:41 Dose: 5 mg Metoprolol Tartrate (Lopressor) 25 mg PO Q12HR [facility] Last Admin: 03/03/17 09:04 Dose: Not Given Morphine Sulfate (Morphine) 2 mg IVPUSH Q2H PRN PRN Reason: Pain (severe 7-10) Stop: 03/02/17 17:20 Potassium Chloride (Klor-Con M20) 40 meq PO ONETIME ONE Stop: 03/01/17 14:40 Last Admin: 03/01/17 16:06 Dose: 40 meq Wound Care/Dressing Products (Duoderm Cgf) 1 each TOP ASDIRECTED ONE Stop: 03/05/17 13:36 Last Admin: 03/05/17 13:53 Dose: 1 each - Exam General: Alert, Oriented, Cooperative Lungs: Clear to Auscultation, Normal Respiratory Effort Cardiovascular: Regular Rate, Regular Rhythm GI/Abdominal Exam: Non-Tender - Problem List & Annotations (1) Rhabdomyolysis SNOMED Code(s): 577900333 Code(s): M62.82 - RHABDOMYOLYSIS Status: Acute Priority: High Current Visit: Yes Qualifiers: Rhabdomyolysis type: traumatic Encounter type: initial encounter Qualified Code(s): T79.6XXA - Traumatic ischemia of muscle, initial encounter (2) Anemia SNOMED Code(s): 130061104 Code(s): D64.9 - ANEMIA, UNSPECIFIED Status: Acute Current Visit: Yes (3) Physical deconditioning SNOMED Code(s): 23165115111099 Code(s): R53.81 - OTHER MALAISE Status: Acute Current Visit: Yes (4) Gait disturbance SNOMED Code(s): 51081259 Code(s): R26.9 - UNSPECIFIED ABNORMALITIES OF GAIT AND MOBILITY Status: Acute Current Visit: Yes (5) Physical deconditioning SNOMED Code(s): 80816521617284 Code(s): R53.81 - OTHER MALAISE Status: Acute Current Visit: Yes (6) Atrial fibrillation SNOMED Code(s): 93415545 Code(s): I48.91 - UNSPECIFIED ATRIAL FIBRILLATION Status: Acute Current Visit: Yes (7) History of GI bleed SNOMED Code(s): 495728401 Code(s): Z87.19 - PERSONAL HISTORY OF OTHER DISEASES OF THE DIGESTIVE SYSTEM Status: Acute Current Visit: Yes - Problem List Review Problem List Initiated/Reviewed/Updated: Yes - My Orders Last 24 Hours: My Active Orders 03/08/17 18:19 Consult to Physician [CONS] Routine 03/08/17 18:20 Notify Provider Consults [RC] ASDIRECTED 03/09/17 10:05 Metoprolol Tartrate [Lopressor] 5 mg IVPUSH ONETIME 03/09/17 21:00 Metoprolol Succinate [Toprol XL] 25 mg PO BID - Assessment Assessment:: 03/06/2017 - Plan Plan:: The patient is a 71-year-old gentleman who was admitted secondary to rhabdomyolysis. The patient had fallen out of bed and had yandy undiscovered for several hours. I've ordered a 2-D echocardiogram to check for wall motion abnormalities as decreased ejection fraction may have contributed to his passing out. I've recommended that the patient not have Lasix in order for the blood to act as a blood volume build engineer and pull extracellular fluid into the capillary system. I will order iron sucrose for the patient. Prior to blood transfusion the patient has been advised of the risk, benefits and alternatives of blood transfusion and blood products. He is agreed to the blood transfusion. The patient will have his vital signs monitored he will continue on telemetry. The patient reportedly had fallen out of bed and had yandy undiscovered for approximately 8 hours. He did have evidence of elevation of his CPK and he is placed on IV fluids. The patient became anemic and he had 2 units of packed red blood cells transfused. The patient's vital signs have normalized today and his blood pressure is 128/61. Patient's oxygen saturations remained low. We are currently pending information with regards to the 2-D echocardiogram completed. 03/05/2016 he refused to consider [facility] home Will continue to monitor gait stability over the weekend with disposition more likely on Wednesday duoderm History of anemia thought secondary to GI bleeding monitor CBC will need to consider outpatient endoscopic evaluation. Ender Stone MD 03/06/2017 add Fe for Fe deficiency Hg stabilizing see above note Ender Stone MD 03/07/2017 CBC in am. he refuses [facility]. possible discharge home with home health on Wednesday. Ender kern MD 03/08/2017 [facility] likely tomorrow. I spoke with DR Edwards who agrees to see him in consultaton regarding clearing before endoscopy to evaluate anemia and prior gi bleeding. I spoke with Dr Varun Mac who will see the patient at [facility]. continue present care for now. Ender Stone MD 03/09/2017 anticipate discharge tomorrow. I reviewed note from Dr Edwards who clears him for upper / lower endoscopies. I spoke with Dr Price who kindly agrees to see him in the clinic next week. Ender Stone MD
[2017-03-10] MEDS: oxyCODONE 5 MG Tab PO PRN ×4 (01:14→23:43)
[2017-03-10] MEDS: Phosphorus #1 250 MG Tab PO SCH ×4 (01:14→17:15)
--- NOTE | 2017-03-10 04:00 | PCM.DCSUM1 ---
Discharge Summary - Hospital Course Brief History: He was admitted after a fall at home after which he was unable to get up off of the floor. He lives alone. - Discharge Data Discharge Date: 03/10/17 Discharge Disposition: DC/Tfer to [facility] Condition: Stable - Discharge Diagnosis/Problem(s) (1) Rhabdomyolysis SNOMED Code(s): 199144917 ICD Code: M62.82 - RHABDOMYOLYSIS Status: Acute Priority: High Current Visit: Yes Qualifiers: Rhabdomyolysis type: traumatic Encounter type: initial encounter Qualified Code(s): T79.6XXA - Traumatic ischemia of muscle, initial encounter (2) Anemia SNOMED Code(s): 884225165 ICD Code: D64.9 - ANEMIA, UNSPECIFIED Status: Acute Current Visit: Yes (3) Physical deconditioning SNOMED Code(s): 18677237779226 ICD Code: R53.81 - OTHER MALAISE Status: Acute Current Visit: Yes (4) Gait disturbance SNOMED Code(s): 67800375 ICD Code: R26.9 - UNSPECIFIED ABNORMALITIES OF GAIT AND MOBILITY Status: Acute Current Visit: Yes (5) Physical deconditioning SNOMED Code(s): 20354140017643 ICD Code: R53.81 - OTHER MALAISE Status: Acute Current Visit: Yes (6) Atrial fibrillation SNOMED Code(s): 61587779 ICD Code: I48.91 - UNSPECIFIED ATRIAL FIBRILLATION Status: Acute Current Visit: Yes (7) History of GI bleed SNOMED Code(s): 459779540 ICD Code: Z87.19 - PERSONAL HISTORY OF OTHER DISEASES OF THE DIGESTIVE SYSTEM Status: Acute Current Visit: Yes - Patient Summary/Data Consults: Consultations 03/08/17 18:19 Consult to Physician [CONS] Routine Hospital Course: He was given supportive nursing care and physical therapy. He has rheumatoid arthritis and suffers from chronic pain. At discharge he has better pain control and is ambulatory with a walker although he sometimes requires assistance to get out of bed. He has a chronic anemia thought secondary to GI bleeding. Prior plans for endoscopic evaluation were postponed because the patient had atrial fibrillation. In the hospital he was in sinus rhythm and atrial fibrillation. His beta ghulam was adjusted for ventricular rate control. Dr Edwards consulted on this case and gave clearance for EGD/colonoscopy. I called and discussed the case with DR Price who has agreed to see the patient next week in the clinic for consideration of endoscopic evaluation for GI bleeding. Dr Contreras has been his physician. The patient agreed to go to the [facility] for further rehabilitation. Dr Varun Mac kindly agreed to see this gentleman at the [facility]. - Discharge Plan Prescriptions/Med Rec: Acetaminophen [Tylenol] 325 mg PO Q4H PRN #60 tablet PRN Reason: Pain Cyclobenzaprine [Flexeril] 5 mg PO BID #60 tablet Docusate Sodium [Colace] 100 mg PO BID #60 cap Ferrous Sulfate 325 mg PO BIDMEALS #60 tablet Furosemide [Lasix] 40 mg PO DAILY #30 tablet Hydrocolloid Dressing [DuoDerm CGF] 1 each TOP Q72H #10 bandage Magnesium Oxide 400 mg PO BID #60 tablet Metoprolol Succinate [Toprol XL] 25 mg PO BID #60 tab.er oxyCODONE 5 mg PO Q4H PRN #100 tablet PRN Reason: Pain Pantoprazole [ProTONIX] 40 mg PO ACBREAKFAST #30 tab.cr Phosphorus #1 [Neutra-Phos] 250 mg PO QID #120 tablet predniSONE 5 mg PO BIDMEALS #60 tablet Home Medications: Home Meds Metoprolol Tartrate [Lopressor] 25 mg PO BID #60 tablet 10/16/16 [Rx] Folic Acid 1 mg PO DAILY 03/02/17 [History] Levothyroxine Sodium [Levo-T] 25 mcg PO MOWEFR@0730 03/02/17 [History] Methotrexate Sodium [Methotrexate] 2.5 mg PO SUTUWETHFRSA@0800 03/02/17 [History ] Tamsulosin HCl [Flomax] 0.4 mg PO DAILY 03/02/17 [History] Acetaminophen [Tylenol] 325 mg PO Q4H PRN #60 tablet 03/10/17 [Rx] Cyclobenzaprine [Flexeril] 5 mg PO BID #60 tablet 03/10/17 [Rx] Docusate Sodium [Colace] 100 mg PO BID #60 cap 03/10/17 [Rx] Ferrous Sulfate 325 mg PO BIDMEALS #60 tablet 03/10/17 [Rx] Furosemide [Lasix] 40 mg PO DAILY #30 tablet 03/10/17 [Rx] Hydrocolloid Dressing [DuoDerm CGF] 1 each TOP Q72H #10 bandage 03/10/17 [Rx] Magnesium Oxide 400 mg PO BID #60 tablet 03/10/17 [Rx] Metoprolol Succinate [Toprol XL] 25 mg PO BID #60 tab.er 03/10/17 [Rx] Pantoprazole [ProTONIX] 40 mg PO ACBREAKFAST #30 tab.cr 03/10/17 [Rx] Phosphorus #1 [Neutra-Phos] 250 mg PO QID #120 tablet 03/10/17 [Rx] oxyCODONE 5 mg PO Q4H PRN #100 tablet 03/10/17 [Rx] predniSONE 5 mg PO BIDMEALS #60 tablet 03/10/17 [Rx] Referrals: [facility] [Outside] Jefe Price MD [Physician] - 04/01/17 10:00 am Varun Mac MD [Physician] - PCP,None [Primary Care Provider] - Júnior Contreras MD [Ordering Only Provider] - 03/12/17 1:00 pm - Patient Data Vitals - Most Recent: Last Vital Signs Temp 97.6 F 03/10/17 00:00 Pulse 71 03/10/17 00:00 Resp 18 03/10/17 00:00 BP 96/41 L 03/10/17 00:00 Pulse Ox 93 L 03/10/17 00:00 Weight - Most Recent: 76.5 kg I&O - Last 24 hours: Intake & Output 03/09/17 03/09/17 03/10/17 14:59 22:59 06:59 Intake Total 480 Output Total 1450 Balance -970 Lab Results - Last 24 hrs: Laboratory Results - last 24 hr 03/09/17 Range/Units 04:55 WBC 11.44 H (4.0-11.0) K/uL RBC 3.11 L (4.50-5.90) M/uL Hgb 9.6 L (13.0-17.0) g/dL Hct 28.2 L (38.0-50.0) % MCV 90.7 (80.0-98.0) fL MCH 30.9 (27.0-32.0) pg MCHC 34.0 (31.0-37.0) g/dL RDW Std Deviation 70.4 H (28.0-62.0) fl RDW Coeff of Kristy 22 H (11.0-15.0) % Plt Count 207 (150-400) K/uL MPV 9.50 (7.40-12.00) fL Add Manual Diff YES Neutrophils % (Manual) 64 (48.0-80.0) % Band Neutrophils % 5 % Lymphocytes % (Manual) 22 (16.0-40.0) % Monocytes % (Manual) 9 (0.0-15.0) % Nucleated RBC % 0.0 /100WBC Absolute Seg Neuts 7.3 Band Neutrophils # 0.6 Lymphocytes # (Manual) 2.5 Monocytes # (Manual) 1.0 Nucleated RBCs # 0 K/uL Med Orders - Current: Current Medications Acetaminophen (Tylenol) 650 mg PO Q4H PRN PRN Reason: Pain (Mild 1-3)/fever Last Admin: 03/04/17 21:19 Dose: 650 mg Cyclobenzaprine HCl (Flexeril) 5 mg PO BID [facility] Last Admin: 03/09/17 20:36 Dose: 5 mg Docusate Sodium (Colace) 100 mg PO BID PRN PRN Reason: Constipation Ferrous Sulfate (Ferrous Sulfate) 325 mg PO BIDMEALS [facility] Last Admin: 03/09/17 17:57 Dose: 325 mg Folic Acid (Folic Acid) 1 mg PO DAILY [facility] Last Admin: 03/09/17 08:44 Dose: 1 mg Furosemide (Lasix) 40 mg PO DAILY [facility] Last Admin: 03/09/17 09:04 Dose: 40 mg Levothyroxine Sodium (Levothyroxine) 25 mcg PO MoWeFr@0730 [facility] Last Admin: 03/08/17 06:31 Dose: 25 mcg Levothyroxine Sodium (Levothyroxine) 150 mcg PO SuTuThSa@0730 [facility] Last Admin: 03/09/17 06:31 Dose: 150 mcg Magnesium Oxide (Magnesium Oxide) 400 mg PO BID [facility] Last Admin: 03/09/17 20:36 Dose: 400 mg Metoprolol Succinate (Toprol Xl) 25 mg PO BID [facility] Last Admin: 03/09/17 20:36 Dose: 25 mg Metoprolol Tartrate (Lopressor) 5 mg IVPUSH ONETIME [facility] Oxycodone HCl (Oxycodone) 5 mg PO Q4H PRN PRN Reason: Pain (moderate 4-6) Last Admin: 03/10/17 01:14 Dose: 5 mg Pantoprazole Sodium (Protonix) 40 mg PO ACBREAKFAST [facility] Last Admin: 03/09/17 06:30 Dose: 40 mg Polysaccharide Iron Complex (Ferrex 150) 150 mg PO DAILY [facility] Last Admin: 03/09/17 08:44 Dose: 150 mg Prednisone (Prednisone) 5 mg PO BIDMEALS [facility] Last Admin: 03/09/17 17:58 Dose: 5 mg Sodium Chloride (Saline Flush) 10 ml FLUSH ASDIRECTED PRN PRN Reason: Keep Vein Open Last Admin: 03/01/17 14:14 Dose: 10 ml Sodium Chloride (Saline Flush) 2.5 ml FLUSH ASDIRECTED PRN PRN Reason: Keep Vein Open Last Admin: 03/01/17 14:13 Dose: 2.5 ml Sodium Phosphate (Neutra-Phos) 250 mg PO QID [facility] Last Admin: 03/10/17 01:14 Dose: 250 mg Tamsulosin HCl (Flomax) 0.4 mg PO DAILY [facility] Last Admin: 03/09/17 08:44 Dose: 0.4 mg Wound Care/Dressing Products (Duoderm Cgf) 1 each TOP ASDIRECTED [facility] Last Admin: 03/09/17 09:35 Dose: 1 each Discontinued Medications Acetaminophen (Tylenol) 650 mg PO NOW ONE Stop: 03/03/17 11:45 Last Admin: 03/03/17 13:23 Dose: 650 mg Calcium Gluconate (Calcium Gluconate) 1 gm IV ONETIME ONE Stop: 03/02/17 11:45 Last Admin: 03/02/17 12:22 Dose: 1 gm Diphenhydramine HCl (Benadryl) 50 mg PO ONETIME ONE Stop: 03/03/17 11:45 Last Admin: 03/03/17 13:23 Dose: 50 mg Enoxaparin Sodium (Lovenox) 30 mg SUBCUT DAILY [facility] Last Admin: 03/02/17 09:08 Dose: 30 mg Furosemide (Lasix) 20 mg IVPUSH ONCALL [facility] Stop: 03/04/17 11:46 Sodium Chloride (Normal Saline) 1,000 mls @ 83 mls/hr IV ASDIRECTED [facility] Last Admin: 03/05/17 13:24 Dose: 999 mls/hr Potassium Chloride 20 meq/ (Sodium Chloride) 260 mls @ 130 mls/hr IV ASDIRECTED [facility] Last Admin: 03/01/17 16:06 Dose: 130 mls/hr Sodium Chloride (Normal Saline) 1,000 mls @ 100 mls/hr IV ASDIRECTED [facility] Magnesium Sulfate 2 gm/ Premix 50 mls @ 50 mls/hr IV ONETIME ONE Stop: 03/01/17 18:23 Last Admin: 03/01/17 18:05 Dose: 50 mls/hr Potassium Chloride/Sodium Chloride (Normal Saline With 20 Meq Kcl) 1,000 mls @ 75 mls/hr IV ASDIRECTED [facility] Last Infusion: 03/01/17 21:01 Dose: 75 mls/hr Potassium Chloride/Sodium Chloride (Normal Saline With 20 Meq Kcl) 1,000 mls @ 100 mls/hr IV ASDIRECTED [facility] Last Admin: 03/02/17 05:46 Dose: 100 mls/hr Sodium Chloride (Normal Saline) 1,000 mls @ 100 mls/hr IV ASDIRECTED [facility] Last Admin: 03/04/17 16:55 Dose: 100 mls/hr Magnesium Sulfate 4 gm/ Premix 100 mls @ 50 mls/hr IV ONETIME ONE Stop: 03/02/17 11:14 Last Admin: 03/02/17 09:34 Dose: 50 mls/hr Sodium Chloride (Normal Saline) 1,000 mls @ 999 mls/hr IV ONETIME ONE Stop: 03/03/17 02:08 Last Admin: 03/03/17 01:24 Dose: 999 mls/hr Pantoprazole Sodium 40 mg/ (Sodium Chloride) 10 mls @ 300 mls/hr IVPUSH Q12H [facility] Last Admin: 03/05/17 09:39 Dose: 300 mls/hr Iron Sucrose 100 mg/ Sodium (Chloride) 105 mls @ 400 mls/hr IV ONETIME ONE Stop: 03/04/17 10:19 Last Admin: 03/04/17 11:15 Dose: 400 mls/hr Magnesium Sulfate 2 gm/ Premix 50 mls @ 50 mls/hr IV ONETIME ONE Stop: 03/04/17 12:16 Last Admin: 03/04/17 12:03 Dose: 50 mls/hr Levothyroxine Sodium (Levothyroxine) 150 mcg PO ACBREAKFAST [facility] Last Admin: 03/02/17 06:34 Dose: 150 mcg Levothyroxine Sodium (Levothyroxine) 25 mcg PO ACBREAKFAST [facility] Last Admin: 03/03/17 06:30 Dose: 25 mcg Metoprolol Succinate (Toprol Xl) 25 mg PO DAILY [facility] Last Admin: 03/09/17 08:45 Dose: 25 mg Metoprolol Succinate (Toprol Xl) 25 mg PO ONETIME ONE Stop: 03/09/17 10:06 Last Admin: 03/09/17 11:11 Dose: Not Given Metoprolol Tartrate (Lopressor) 25 mg PO BID [facility] Metoprolol Tartrate (Lopressor) 5 mg IVPUSH ONETIME ONE Stop: 03/02/17 09:14 Last Admin: 03/02/17 09:42 Dose: Not Given Metoprolol Tartrate (Lopressor) 5 mg IVPUSH ONETIME ONE Stop: 03/02/17 09:31 Last Admin: 03/02/17 09:41 Dose: 5 mg Metoprolol Tartrate (Lopressor) 25 mg PO Q12HR [facility] Last Admin: 03/03/17 09:04 Dose: Not Given Morphine Sulfate (Morphine) 2 mg IVPUSH Q2H PRN PRN Reason: Pain (severe 7-10) Stop: 03/02/17 17:20 Potassium Chloride (Klor-Con M20) 40 meq PO ONETIME ONE Stop: 03/01/17 14:40 Last Admin: 03/01/17 16:06 Dose: 40 meq Wound Care/Dressing Products (Duoderm Cgf) 1 each TOP ASDIRECTED ONE Stop: 03/05/17 13:36 Last Admin: 03/05/17 13:53 Dose: 1 each *Q Meaningful Use (DIS) - VTE *Q VTE Criteria *Q: VTE Mechanical Contraindications *Q: At Risk for Falls - Stroke *Q Stroke Criteria *Q: - AMI *Q AMI Criteria *Q:
[2017-03-10] MEDS: Pantoprazole 40 MG Tab.CR PO SCH (07:21)
[2017-03-10] MEDS: Levothyroxine 25 MCG Tab PO SCH (07:21)
[2017-03-10] MEDS: Tamsulosin 0.4 MG Cap.ER PO SCH (09:12)
[2017-03-10] MEDS: predniSONE 5 MG Tab PO SCH ×2 (09:12→17:15)
[2017-03-10] MEDS: Cyclobenzaprine 5 MG Tab PO SCH ×2 (09:13→20:23)
[2017-03-10] MEDS: Magnesium Oxide 400 MG Tab PO SCH ×2 (09:13→20:23)
[2017-03-10] MEDS: Folic Acid 1 MG Tab PO SCH (09:13)
[2017-03-10] MEDS: Furosemide 40 MG Tab PO SCH (09:13)
[2017-03-10] MEDS: Ferrous Sulfate 325 MG Tab PO SCH ×2 (09:13→17:15)
[2017-03-10] MEDS: Iron Polysaccharides Complex 150 MG Cap PO SCH (09:13)
[2017-03-10] MEDS: Metoprolol Succinate 25 MG Tab.ER PO SCH ×3 (09:16→20:28)
--- NOTE | 2017-03-10 14:15 | ECHO ---
EXAM DATE: 03/03/17 PATIENT'S AGE: 71 The echocardiogram report can be seen in this patient's EMR (Electronic Medical Record) in the Reports section. The report has also been scanned into PACS. MANISH
[2017-03-11] MEDS: Phosphorus #1 250 MG Tab PO SCH ×5 (00:30→23:12)
[2017-03-11] MEDS: oxyCODONE 5 MG Tab PO PRN ×3 (04:43→23:14)
[2017-03-11] MEDS: Levothyroxine 150 MCG Tab PO SCH (07:02)
[2017-03-11] MEDS: Pantoprazole 40 MG Tab.CR PO SCH (07:02)
[2017-03-11] MEDS: Cyclobenzaprine 5 MG Tab PO SCH ×2 (08:27→20:59)
[2017-03-11] MEDS: Magnesium Oxide 400 MG Tab PO SCH ×2 (08:27→20:59)
[2017-03-11] MEDS: Folic Acid 1 MG Tab PO SCH (08:27)
[2017-03-11] MEDS: predniSONE 5 MG Tab PO SCH ×2 (08:27→17:54)
[2017-03-11] MEDS: Iron Polysaccharides Complex 150 MG Cap PO SCH (08:27)
[2017-03-11] MEDS: Furosemide 40 MG Tab PO SCH (08:27)
[2017-03-11] MEDS: Tamsulosin 0.4 MG Cap.ER PO SCH (08:27)
[2017-03-11] MEDS: Ferrous Sulfate 325 MG Tab PO SCH ×2 (08:28→17:54)
[2017-03-11] MEDS: Metoprolol Succinate 25 MG Tab.ER PO SCH ×2 (08:29→20:59)
--- NOTE | 2017-03-11 16:29 | PCM.PN ---
- Review of Systems Systems Review Comment:: no new complaints - Patient Data Vitals - Most Recent: Last Vital Signs Temp 36.8 C 03/11/17 14:00 Pulse 60 03/11/17 14:00 Resp 18 03/11/17 14:00 BP 102/49 L 03/11/17 14:00 Pulse Ox 94 L 03/11/17 14:00 Weight - Most Recent: 76.5 kg I&O - Last 24 Hours: Intake & Output 03/11/17 03/11/17 03/11/17 06:59 14:59 22:59 Intake Total 500 Output Total 1100 Balance -600 Med Orders - Current: Current Medications Acetaminophen (Tylenol) 650 mg PO Q4H PRN PRN Reason: Pain (Mild 1-3)/fever Last Admin: 03/04/17 21:19 Dose: 650 mg Cyclobenzaprine HCl (Flexeril) 5 mg PO BID [facility] Last Admin: 03/11/17 08:27 Dose: 5 mg Docusate Sodium (Colace) 100 mg PO BID PRN PRN Reason: Constipation Ferrous Sulfate (Ferrous Sulfate) 325 mg PO BIDMEALS [facility] Last Admin: 03/11/17 08:28 Dose: 325 mg Folic Acid (Folic Acid) 1 mg PO DAILY [facility] Last Admin: 03/11/17 08:27 Dose: 1 mg Furosemide (Lasix) 40 mg PO DAILY [facility] Last Admin: 03/11/17 08:27 Dose: 40 mg Levothyroxine Sodium (Levothyroxine) 25 mcg PO MoWeFr@0730 [facility] Last Admin: 03/10/17 07:21 Dose: 25 mcg Levothyroxine Sodium (Levothyroxine) 150 mcg PO SuTuThSa@0730 [facility] Last Admin: 03/11/17 07:02 Dose: 150 mcg Magnesium Oxide (Magnesium Oxide) 400 mg PO BID [facility] Last Admin: 03/11/17 08:27 Dose: 400 mg Metoprolol Succinate (Toprol Xl) 25 mg PO BID [facility] Last Admin: 03/11/17 08:29 Dose: 25 mg Metoprolol Tartrate (Lopressor) 5 mg IVPUSH ONETIME [facility] Oxycodone HCl (Oxycodone) 5 mg PO Q4H PRN PRN Reason: Pain (moderate 4-6) Last Admin: 03/11/17 04:43 Dose: 5 mg Pantoprazole Sodium (Protonix) 40 mg PO ACBREAKFAST [facility] Last Admin: 03/11/17 07:02 Dose: 40 mg Polysaccharide Iron Complex (Ferrex 150) 150 mg PO DAILY [facility] Last Admin: 03/11/17 08:27 Dose: 150 mg Prednisone (Prednisone) 5 mg PO BIDMEALS [facility] Last Admin: 03/11/17 08:27 Dose: 5 mg Sodium Chloride (Saline Flush) 10 ml FLUSH ASDIRECTED PRN PRN Reason: Keep Vein Open Last Admin: 03/01/17 14:14 Dose: 10 ml Sodium Chloride (Saline Flush) 2.5 ml FLUSH ASDIRECTED PRN PRN Reason: Keep Vein Open Last Admin: 03/01/17 14:13 Dose: 2.5 ml Sodium Phosphate (Neutra-Phos) 250 mg PO QID [facility] Last Admin: 03/11/17 12:30 Dose: 250 mg Tamsulosin HCl (Flomax) 0.4 mg PO DAILY [facility] Last Admin: 03/11/17 08:27 Dose: 0.4 mg Wound Care/Dressing Products (Duoderm Cgf) 1 each TOP ASDIRECTED [facility] Last Admin: 03/09/17 09:35 Dose: 1 each Discontinued Medications Acetaminophen (Tylenol) 650 mg PO NOW ONE Stop: 03/03/17 11:45 Last Admin: 03/03/17 13:23 Dose: 650 mg Calcium Gluconate (Calcium Gluconate) 1 gm IV ONETIME ONE Stop: 03/02/17 11:45 Last Admin: 03/02/17 12:22 Dose: 1 gm Diphenhydramine HCl (Benadryl) 50 mg PO ONETIME ONE Stop: 03/03/17 11:45 Last Admin: 03/03/17 13:23 Dose: 50 mg Enoxaparin Sodium (Lovenox) 30 mg SUBCUT DAILY [facility] Last Admin: 03/02/17 09:08 Dose: 30 mg Furosemide (Lasix) 20 mg IVPUSH ONCALL [facility] Stop: 03/04/17 11:46 Sodium Chloride (Normal Saline) 1,000 mls @ 83 mls/hr IV ASDIRECTED [facility] Last Admin: 03/05/17 13:24 Dose: 999 mls/hr Potassium Chloride 20 meq/ (Sodium Chloride) 260 mls @ 130 mls/hr IV ASDIRECTED [facility] Last Admin: 03/01/17 16:06 Dose: 130 mls/hr Sodium Chloride (Normal Saline) 1,000 mls @ 100 mls/hr IV ASDIRECTED [facility] Magnesium Sulfate 2 gm/ Premix 50 mls @ 50 mls/hr IV ONETIME ONE Stop: 03/01/17 18:23 Last Admin: 03/01/17 18:05 Dose: 50 mls/hr Potassium Chloride/Sodium Chloride (Normal Saline With 20 Meq Kcl) 1,000 mls @ 75 mls/hr IV ASDIRECTED [facility] Last Infusion: 03/01/17 21:01 Dose: 75 mls/hr Potassium Chloride/Sodium Chloride (Normal Saline With 20 Meq Kcl) 1,000 mls @ 100 mls/hr IV ASDIRECTED [facility] Last Admin: 03/02/17 05:46 Dose: 100 mls/hr Sodium Chloride (Normal Saline) 1,000 mls @ 100 mls/hr IV ASDIRECTED [facility] Last Admin: 03/04/17 16:55 Dose: 100 mls/hr Magnesium Sulfate 4 gm/ Premix 100 mls @ 50 mls/hr IV ONETIME ONE Stop: 03/02/17 11:14 Last Admin: 03/02/17 09:34 Dose: 50 mls/hr Sodium Chloride (Normal Saline) 1,000 mls @ 999 mls/hr IV ONETIME ONE Stop: 03/03/17 02:08 Last Admin: 03/03/17 01:24 Dose: 999 mls/hr Pantoprazole Sodium 40 mg/ (Sodium Chloride) 10 mls @ 300 mls/hr IVPUSH Q12H [facility] Last Admin: 03/05/17 09:39 Dose: 300 mls/hr Iron Sucrose 100 mg/ Sodium (Chloride) 105 mls @ 400 mls/hr IV ONETIME ONE Stop: 03/04/17 10:19 Last Admin: 03/04/17 11:15 Dose: 400 mls/hr Magnesium Sulfate 2 gm/ Premix 50 mls @ 50 mls/hr IV ONETIME ONE Stop: 03/04/17 12:16 Last Admin: 03/04/17 12:03 Dose: 50 mls/hr Levothyroxine Sodium (Levothyroxine) 150 mcg PO ACBREAKFAST [facility] Last Admin: 03/02/17 06:34 Dose: 150 mcg Levothyroxine Sodium (Levothyroxine) 25 mcg PO ACBREAKFAST [facility] Last Admin: 03/03/17 06:30 Dose: 25 mcg Metoprolol Succinate (Toprol Xl) 25 mg PO DAILY [facility] Last Admin: 03/09/17 08:45 Dose: 25 mg Metoprolol Succinate (Toprol Xl) 25 mg PO ONETIME ONE Stop: 03/09/17 10:06 Last Admin: 03/09/17 11:11 Dose: Not Given Metoprolol Tartrate (Lopressor) 25 mg PO BID [facility] Metoprolol Tartrate (Lopressor) 5 mg IVPUSH ONETIME ONE Stop: 03/02/17 09:14 Last Admin: 03/02/17 09:42 Dose: Not Given Metoprolol Tartrate (Lopressor) 5 mg IVPUSH ONETIME ONE Stop: 03/02/17 09:31 Last Admin: 03/02/17 09:41 Dose: 5 mg Metoprolol Tartrate (Lopressor) 25 mg PO Q12HR [facility] Last Admin: 03/03/17 09:04 Dose: Not Given Morphine Sulfate (Morphine) 2 mg IVPUSH Q2H PRN PRN Reason: Pain (severe 7-10) Stop: 03/02/17 17:20 Potassium Chloride (Klor-Con M20) 40 meq PO ONETIME ONE Stop: 03/01/17 14:40 Last Admin: 03/01/17 16:06 Dose: 40 meq Wound Care/Dressing Products (Duoderm Cgf) 1 each TOP ASDIRECTED ONE Stop: 03/05/17 13:36 Last Admin: 03/05/17 13:53 Dose: 1 each - Problem List Review Problem List Initiated/Reviewed/Updated: Yes - My Orders Last 24 Hours: My Active Orders 03/11/17 08:42 Consult to Physical Therapy [PT Evaluation and Treatment] [CONS] Routine - Plan Plan:: 71 yo male admitted for rhabdomyolysis. Discharge pending placement at [place].
[2017-03-12] MEDS: Phosphorus #1 250 MG Tab PO SCH ×2 (06:52→11:45)
[2017-03-12] MEDS: Levothyroxine 25 MCG Tab PO SCH (06:54)
[2017-03-12] MEDS: Pantoprazole 40 MG Tab.CR PO SCH (06:54)
[2017-03-12] MEDS: oxyCODONE 5 MG Tab PO PRN ×2 (06:59→12:05)
[2017-03-12] MEDS: Magnesium Oxide 400 MG Tab PO SCH (08:52)
[2017-03-12] MEDS: Folic Acid 1 MG Tab PO SCH (08:52)
[2017-03-12] MEDS: Tamsulosin 0.4 MG Cap.ER PO SCH (08:52)
[2017-03-12] MEDS: predniSONE 5 MG Tab PO SCH (08:52)
[2017-03-12] MEDS: Furosemide 40 MG Tab PO SCH (08:52)
[2017-03-12] MEDS: Cyclobenzaprine 5 MG Tab PO SCH (08:52)
[2017-03-12] MEDS: Iron Polysaccharides Complex 150 MG Cap PO SCH (08:52)
[2017-03-12] MEDS: Ferrous Sulfate 325 MG Tab PO SCH (08:52)
[2017-03-12] MEDS: Metoprolol Succinate 25 MG Tab.ER PO SCH (08:53)
--- NOTE | 2017-03-12 11:16 | PCM.PN ---
- Review of Systems Systems Review Comment:: no new complaints. - Patient Data Vitals - Most Recent: Last Vital Signs Temp 36.8 C 03/12/17 08:00 Pulse 85 03/12/17 08:53 Resp 20 03/12/17 08:00 BP 132/75 03/12/17 08:53 Pulse Ox 94 L 03/12/17 08:00 Weight - Most Recent: 76.5 kg I&O - Last 24 Hours: Intake & Output 03/11/17 03/12/17 03/12/17 22:59 06:59 14:59 Intake Total 1400 500 Output Total 1900 700 Balance -500 -200 Med Orders - Current: Current Medications Acetaminophen (Tylenol) 650 mg PO Q4H PRN PRN Reason: Pain (Mild 1-3)/fever Last Admin: 03/04/17 21:19 Dose: 650 mg Cyclobenzaprine HCl (Flexeril) 5 mg PO BID [facility] Last Admin: 03/12/17 08:52 Dose: 5 mg Docusate Sodium (Colace) 100 mg PO BID PRN PRN Reason: Constipation Ferrous Sulfate (Ferrous Sulfate) 325 mg PO BIDMEALS [facility] Last Admin: 03/12/17 08:52 Dose: 325 mg Folic Acid (Folic Acid) 1 mg PO DAILY [facility] Last Admin: 03/12/17 08:52 Dose: 1 mg Furosemide (Lasix) 40 mg PO DAILY [facility] Last Admin: 03/12/17 08:52 Dose: 40 mg Levothyroxine Sodium (Levothyroxine) 25 mcg PO MoWeFr@0730 [facility] Last Admin: 03/12/17 06:54 Dose: 25 mcg Levothyroxine Sodium (Levothyroxine) 150 mcg PO SuTuThSa@0730 [facility] Last Admin: 03/11/17 07:02 Dose: 150 mcg Magnesium Oxide (Magnesium Oxide) 400 mg PO BID [facility] Last Admin: 03/12/17 08:52 Dose: 400 mg Metoprolol Succinate (Toprol Xl) 25 mg PO BID [facility] Last Admin: 03/12/17 08:53 Dose: 25 mg Metoprolol Tartrate (Lopressor) 5 mg IVPUSH ONETIME [facility] Oxycodone HCl (Oxycodone) 5 mg PO Q4H PRN PRN Reason: Pain (moderate 4-6) Last Admin: 03/12/17 06:59 Dose: 5 mg Pantoprazole Sodium (Protonix) 40 mg PO ACBREAKFAST [facility] Last Admin: 03/12/17 06:54 Dose: 40 mg Polysaccharide Iron Complex (Ferrex 150) 150 mg PO DAILY [facility] Last Admin: 03/12/17 08:52 Dose: 150 mg Prednisone (Prednisone) 5 mg PO BIDMEALS [facility] Last Admin: 03/12/17 08:52 Dose: 5 mg Sodium Chloride (Saline Flush) 10 ml FLUSH ASDIRECTED PRN PRN Reason: Keep Vein Open Last Admin: 03/01/17 14:14 Dose: 10 ml Sodium Chloride (Saline Flush) 2.5 ml FLUSH ASDIRECTED PRN PRN Reason: Keep Vein Open Last Admin: 03/01/17 14:13 Dose: 2.5 ml Sodium Phosphate (Neutra-Phos) 250 mg PO QID [facility] Last Admin: 03/12/17 06:52 Dose: 250 mg Tamsulosin HCl (Flomax) 0.4 mg PO DAILY [facility] Last Admin: 03/12/17 08:52 Dose: 0.4 mg Wound Care/Dressing Products (Duoderm Cgf) 1 each TOP ASDIRECTED [facility] Last Admin: 03/09/17 09:35 Dose: 1 each Discontinued Medications Acetaminophen (Tylenol) 650 mg PO NOW ONE Stop: 03/03/17 11:45 Last Admin: 03/03/17 13:23 Dose: 650 mg Calcium Gluconate (Calcium Gluconate) 1 gm IV ONETIME ONE Stop: 03/02/17 11:45 Last Admin: 03/02/17 12:22 Dose: 1 gm Diphenhydramine HCl (Benadryl) 50 mg PO ONETIME ONE Stop: 03/03/17 11:45 Last Admin: 03/03/17 13:23 Dose: 50 mg Enoxaparin Sodium (Lovenox) 30 mg SUBCUT DAILY [facility] Last Admin: 03/02/17 09:08 Dose: 30 mg Furosemide (Lasix) 20 mg IVPUSH ONCALL [facility] Stop: 03/04/17 11:46 Sodium Chloride (Normal Saline) 1,000 mls @ 83 mls/hr IV ASDIRECTED [facility] Last Admin: 03/05/17 13:24 Dose: 999 mls/hr Potassium Chloride 20 meq/ (Sodium Chloride) 260 mls @ 130 mls/hr IV ASDIRECTED [facility] Last Admin: 03/01/17 16:06 Dose: 130 mls/hr Sodium Chloride (Normal Saline) 1,000 mls @ 100 mls/hr IV ASDIRECTED [facility] Magnesium Sulfate 2 gm/ Premix 50 mls @ 50 mls/hr IV ONETIME ONE Stop: 03/01/17 18:23 Last Admin: 03/01/17 18:05 Dose: 50 mls/hr Potassium Chloride/Sodium Chloride (Normal Saline With 20 Meq Kcl) 1,000 mls @ 75 mls/hr IV ASDIRECTED [facility] Last Infusion: 03/01/17 21:01 Dose: 75 mls/hr Potassium Chloride/Sodium Chloride (Normal Saline With 20 Meq Kcl) 1,000 mls @ 100 mls/hr IV ASDIRECTED [facility] Last Admin: 03/02/17 05:46 Dose: 100 mls/hr Sodium Chloride (Normal Saline) 1,000 mls @ 100 mls/hr IV ASDIRECTED [facility] Last Admin: 03/04/17 16:55 Dose: 100 mls/hr Magnesium Sulfate 4 gm/ Premix 100 mls @ 50 mls/hr IV ONETIME ONE Stop: 03/02/17 11:14 Last Admin: 03/02/17 09:34 Dose: 50 mls/hr Sodium Chloride (Normal Saline) 1,000 mls @ 999 mls/hr IV ONETIME ONE Stop: 03/03/17 02:08 Last Admin: 03/03/17 01:24 Dose: 999 mls/hr Pantoprazole Sodium 40 mg/ (Sodium Chloride) 10 mls @ 300 mls/hr IVPUSH Q12H [facility] Last Admin: 03/05/17 09:39 Dose: 300 mls/hr Iron Sucrose 100 mg/ Sodium (Chloride) 105 mls @ 400 mls/hr IV ONETIME ONE Stop: 03/04/17 10:19 Last Admin: 03/04/17 11:15 Dose: 400 mls/hr Magnesium Sulfate 2 gm/ Premix 50 mls @ 50 mls/hr IV ONETIME ONE Stop: 03/04/17 12:16 Last Admin: 03/04/17 12:03 Dose: 50 mls/hr Levothyroxine Sodium (Levothyroxine) 150 mcg PO ACBREAKFAST [facility] Last Admin: 03/02/17 06:34 Dose: 150 mcg Levothyroxine Sodium (Levothyroxine) 25 mcg PO ACBREAKFAST [facility] Last Admin: 03/03/17 06:30 Dose: 25 mcg Metoprolol Succinate (Toprol Xl) 25 mg PO DAILY [facility] Last Admin: 03/09/17 08:45 Dose: 25 mg Metoprolol Succinate (Toprol Xl) 25 mg PO ONETIME ONE Stop: 03/09/17 10:06 Last Admin: 03/09/17 11:11 Dose: Not Given Metoprolol Tartrate (Lopressor) 25 mg PO BID [facility] Metoprolol Tartrate (Lopressor) 5 mg IVPUSH ONETIME ONE Stop: 03/02/17 09:14 Last Admin: 03/02/17 09:42 Dose: Not Given Metoprolol Tartrate (Lopressor) 5 mg IVPUSH ONETIME ONE Stop: 03/02/17 09:31 Last Admin: 03/02/17 09:41 Dose: 5 mg Metoprolol Tartrate (Lopressor) 25 mg PO Q12HR [facility] Last Admin: 03/03/17 09:04 Dose: Not Given Morphine Sulfate (Morphine) 2 mg IVPUSH Q2H PRN PRN Reason: Pain (severe 7-10) Stop: 03/02/17 17:20 Potassium Chloride (Klor-Con M20) 40 meq PO ONETIME ONE Stop: 03/01/17 14:40 Last Admin: 03/01/17 16:06 Dose: 40 meq Wound Care/Dressing Products (Duoderm Cgf) 1 each TOP ASDIRECTED ONE Stop: 03/05/17 13:36 Last Admin: 03/05/17 13:53 Dose: 1 each - Exam General: Alert, Cooperative Lungs: Clear to Auscultation, Normal Respiratory Effort Cardiovascular: Regular Rate, Regular Rhythm Extremities: Normal Inspection, No Pedal Edema Skin: Warm, Dry, Intact - Problem List Review Problem List Initiated/Reviewed/Updated: Yes - Plan Plan:: 71 yo male admitted for rhabdomyolysis. Discharge delayed as awaiting a bed at [place]. Plan for discharge today to [place]. Please see Dr. Stone's discharge summary
[2017-03-12] MEDS: Hydrocolloid Dressing 4x4 Bandage TOP SCH (12:05)
[2017-03-12 12:12] VITALS: BP 110/64
== END 2017-03-12 13:40 | DRG 558 ==
LOC: MW.ED 13:47 → UNDOADMIN 16:58 → MW.MS 16:58 → INTOOBSV 17:17 → OBSVTOIN 03-03 07:36
PROVIDERS: ADMIT Internal Medicine; ATTEND Internal Medicine
DX: M62.82 Rhabdomyolysis (principal); E87.6 Hypokalemia; W06.XXXA Fall from bed, initial encounter; R53.1 Weakness; Y93.89 Activity, other specified; G89.29 Other chronic pain; M54.6 Pain in thoracic spine; E03.9 Hypothyroidism, unspecified; I10 Essential (primary) hypertension; Y92.013 Bedroom of single-family (private) house as the place of occurrence of the external cause; E86.0 Dehydration; E83.42 Hypomagnesemia; D64.9 Anemia, unspecified; R53.81 Other malaise; M06.9 Rheumatoid arthritis, unspecified; R26.9 Unspecified abnormalities of gait and mobility; I48.91 Unspecified atrial fibrillation; M50.30 Other cervical disc degeneration, unspecified cervical region; Z87.19 Personal history of other diseases of the digestive system; Z88.0 Allergy status to penicillin; Z79.899 Other long term (current) drug therapy
CPT/HCPCS: 36415 ×3; 70450; 71010; 72072; 72100; 72125; 80048; 80053 ×2; 81001; 82272; 82550 ×3; 82607; 82728; 82746; 83550; 83605 ×3; 83735 ×3; 84100 ×2; 84443; 84484; 85025 ×3; 85045; 85610; 88104; 93005; 96361 ×2; 96365; 96366; 96367; 96372 ×2; 97162; 99285; A9270 ×16; G0378 ×2; J0610; J1650 ×2; J3475 ×2; J3480 ×4; J7040 ×5; J7050; 36430; 86850; 86900; 86901; 86920; 86921; 86922; 93306; 97110-GP; 97164-GP; 97530-GP; 99284; C9113; J1756; J7030; P9016

== ENCOUNTER 2017-07-03 15:03 | Emergency (ER) | payer MEDICARE, BC ==
--- NOTE | 2017-07-03 15:17 | EDM.PDOC ---
ED HPI GENERAL MEDICAL PROBLEM - General Chief Complaint: Fever Stated Complaint: AMB Time Seen by Provider: 07/03/17 15:10 Source of Information: Reports: Patient, EMS History Limitations: Reports: No Limitations - History of Present Illness INITIAL COMMENTS - FREE TEXT/NARRATIVE: HISTORY AND PHYSICAL: History of present illness: [Patient is brought to the emergency room by EMS after family called reporting that has had fever all day. Was found in a puddle of urine in his bed. Patient complains of feeling poorly. Does not know if he's had any fever or chills. He denies chest pain but he feels short of breath. Appetite is normal. No nausea vomiting constipation or diarrhea. Was discharged from [facility] on July 01, after having been there for 3 months following a fall and rhabdomyolysis. Patient states that he fell yesterday on his was to the restroom. Was using his walker at the time. History of hypertension, hypomagnesemia, anemia, RA, vasculitis bilateral lower legs.] Review of systems: As per history of present illness and below otherwise all systems reviewed and negative. Past medical history: As per history of present illness and as reviewed below otherwise noncontributory. Surgical history: As per history of present illness and as reviewed below otherwise noncontributory. Social history: No reported history of drug or alcohol abuse. Family history: As per history of present illness and as reviewed below otherwise noncontributory. Physical exam: Gen.: Well-developed elderly male appears in no acute distress. Vitals are reviewed by this provider. Temperature is difficult to obtain due to patient's diaphoresis. Blood pressure 77/42. Patient is sitting upright, answering questions appropriately, cheeks are pink. O2 sat 77% on room air on arrival. HEENT: Atraumatic, normocephalic. Lungs: Clear to auscultation, breath sounds equal bilaterally. No wheezing crackles or rales. Heart: S1S2, regular rate and rhythm. Abdomen: Bowel sounds are normoactive throughout. Abdomen Soft, nondistended, nontender. Negative for masses, guarding or rebound. Pelvis: Stable nontender. Genitourinary: Deferred. Rectal: Deferred. Extremities: Erythematous lesions and some clear fluid filled blisters to bilateral lower legs. 3 mm deep wound to left lateral malleolus. Cap Refill less than 2 seconds. Motor and sensory unremarkable throughout. Exam nonfocal. Diagnostics: [Head CT without contrast, EKG, CBC, CMP, magnesium, PT/INR/PTT, troponin, chest x-ray, UA, influenza swab, blood cultures, lactate, type and screen, urine culture] Therapeutics: [1 liter NS, then 250mL/hour, dopamine] Impression: [sepsis] Plan: [Negative flu. White count 16.1. Lactate 16. Troponin 0.3. BNP 2220. AST 1442 ALT 1857 Alk Phos 261. Blood cultures, UA, and urine culture are pending. Dr. Cosby accepts patient at 1620. Patient will be transported to [facility] in [place] via fixed wing.] Definitive disposition and diagnosis as appropriate pending reevaluation and review of above. - Related Data Allergies Allergy/AdvReac Type Severity Reaction Status Date / Time Penicillins Allergy Swelling Verified 07/03/17 15:15 Home Meds: Home Meds Calcium Carbonate [Calcium] 600 mg PO BID 07/03/17 [History] Ferrous Sulfate 325 mg PO BID 07/03/17 [History] Folic Acid 1 mg PO DAILY 07/03/17 [History] Furosemide 40 mg PO BID 07/03/17 [History] Past Medical History HEENT History: Reports: None Other HEENT History: wears glasses, has hearing aides but does not wear them Cardiovascular History: Reports: Hypertension, Other (See Below) Respiratory History: Reports: Sleep Apnea Gastrointestinal History: Reports: None Genitourinary History: Reports: Renal Calculus Musculoskeletal History: Reports: Fracture, Osteoarthritis Other Musculoskeletal History: left ankle and right wrist Neurological History: Reports: None Psychiatric History: Reports: None Other Psychiatric History: states is depressed over chronic leg pain x2 months Endocrine/Metabolic History: Reports: Hypothyroidism Hematologic History: Reports: None Immunologic History: Reports: None Oncologic (Cancer) History: Reports: None Dermatologic History: Reports: None - Infectious Disease History Infectious Disease History: Reports: None - Past Surgical History Head Surgeries/Procedures: Reports: None HEENT Surgical History: Reports: None Musculoskeletal Surgical History: Reports: None Social & Family History - Family History Family Medical History: Noncontributory - Tobacco Use Smoking Status *Q: Current Every Day Smoker Years of Tobacco use: 55 Packs/Tins Daily: 0.5 Used Tobacco, but Quit: No Second Hand Smoke Exposure: No - Caffeine Use Caffeine Use: Reports: Coffee - Recreational Drug Use Recreational Drug Use: No Drug Use in Last 12 Months: No - Living Situation & Occupation Living situation: Reports: Alone Occupation: Retired ED ROS GENERAL - Review of Systems Review Of Systems: ROS reveals no pertinent complaints other than HPI. ED EXAM, SEPSIS - Physical Exam Exam: See Below Course - Vital Signs Last Recorded V/S: Last Vital Signs Temp 96.5 F 07/03/17 15:15 Pulse 111 H 07/03/17 15:15 Resp 24 H 07/03/17 15:15 BP 70/42 L 07/03/17 15:15 Pulse Ox 76 L 07/03/17 15:15 - Orders/Labs/Meds Orders: Active Orders 24 hr Category Date Time Status EKG Documentation Completion [RC] STAT Care 07/03/17 15:06 Active RT Aerosol Therapy [RC] ASDIRECTED Care 07/03/17 16:06 Active Chest 1V Frontal [CR] Stat Exams 07/03/17 15:06 Taken CULTURE BLOOD [BC] Stat Lab 07/03/17 15:15 Received CULTURE BLOOD [BC] Stat Lab 07/03/17 15:32 Received UA W/MICROSCOPIC [URIN] Stat Lab 07/03/17 15:06 Uncollected DOPamine/Dextrose 5%-Water [DOPamine in D5W 400 MG/250 Med 07/03/17 16:30 Active ML] 400 mg in 250 ml IV TITRATE Blood Culture x2 Reflex Set [OM.PC] Stat Oth 07/03/17 15:09 Ordered Medication Orders Dopamine HCl/Dextrose (Dopamine In D5w 400 Mg/250 Ml) 400 mg in 250 mls @ 15.309 mls/hr IV TITRATE ANJALI; 5 MCG/KG/MIN PRN Reason: Protocol Last Admin: 07/03/17 16:31 Dose: 5 mcg/kg/min, 15.309 mls/hr Labs: Laboratory Tests 07/03/17 07/03/17 07/03/17 Range/Units 15:15 15:15 15:15 WBC 16.17 H (4.0-11.0) K/uL RBC 3.48 L (4.50-5.90) M/uL Hgb 10.5 L (13.0-17.0) g/dL Hct 33.3 L (38.0-50.0) % MCV 95.7 (80.0-98.0) fL MCH 30.2 (27.0-32.0) pg MCHC 31.5 (31.0-37.0) g/dL RDW Std Deviation 62.9 H (28.0-62.0) fl RDW Coeff of Kristy 18 H (11.0-15.0) % Plt Count 146 L (150-400) K/uL MPV 11.30 (7.40-12.00) fL Add Manual Diff YES Neutrophils % (Manual) 68 (48.0-80.0) % Band Neutrophils % 23 % Lymphocytes % (Manual) 5 L (16.0-40.0) % Monocytes % (Manual) 1 (0.0-15.0) % Metamyelocytes % 3 % Nucleated RBC % 1.0 /100WBC Absolute Seg Neuts 11.0 H (1.4-5.7) Band Neutrophils # 3.7 Lymphocytes # (Manual) 0.8 (0.6-2.4) Monocytes # (Manual) 0.2 (0.0-0.8) Absolute Metamyelocyte 0.5 Nucleated RBCs # 0 K/uL Lactate 16.0 H (0.20-2.00) mmol/L Sodium 138 (136-146) mmol/L Potassium 5.0 (3.5-5.1) mmol/L Chloride 97 L (98-110) mmol/L Carbon Dioxide 14 L (21-31) mmol/L BUN 49 H (6.0-23.0) mg/dL Creatinine 1.7 H (0.6-1.5) mg/dL Est Cr Clr Drug Dosing 42.45 mL/min Estimated GFR (MDRD) 39.9 ml/min Glucose 107 (60-110) mg/dL Calcium 8.7 L (8.8-10.8) mg/dL Magnesium 2.0 (1.5-2.3) mEq/L Total Bilirubin 1.8 H (0.1-1.5) mg/dL AST 1442 H (5-40) IU/L ALT 1857 H (8-54) IU/L Alkaline Phosphatase 261 H (40-150) Troponin I 0.30 H (0.0-0.29) NG/ML B-Natriuretic Peptide (<100) PG/ML Total Protein 5.8 L (6.0-8.0) g/dL Albumin 3.0 L (3.4-4.8) g/dL Globulin 2.8 (2.0-3.5) g/dL Albumin/Globulin Ratio 1.1 L (1.3-2.8) Blood Type Antibody Screen 07/03/17 07/03/17 Range/Units 15:15 15:32 WBC (4.0-11.0) K/uL RBC (4.50-5.90) M/uL Hgb (13.0-17.0) g/dL Hct (38.0-50.0) % MCV (80.0-98.0) fL MCH (27.0-32.0) pg MCHC (31.0-37.0) g/dL RDW Std Deviation (28.0-62.0) fl RDW Coeff of Kristy (11.0-15.0) % Plt Count (150-400) K/uL MPV (7.40-12.00) fL Add Manual Diff Neutrophils % (Manual) (48.0-80.0) % Band Neutrophils % % Lymphocytes % (Manual) (16.0-40.0) % Monocytes % (Manual) (0.0-15.0) % Metamyelocytes % % Nucleated RBC % /100WBC Absolute Seg Neuts (1.4-5.7) Band Neutrophils # Lymphocytes # (Manual) (0.6-2.4) Monocytes # (Manual) (0.0-0.8) Absolute Metamyelocyte Nucleated RBCs # K/uL Lactate (0.20-2.00) mmol/L Sodium (136-146) mmol/L Potassium (3.5-5.1) mmol/L Chloride (98-110) mmol/L Carbon Dioxide (21-31) mmol/L BUN (6.0-23.0) mg/dL Creatinine (0.6-1.5) mg/dL Est Cr Clr Drug Dosing mL/min Estimated GFR (MDRD) ml/min Glucose (60-110) mg/dL Calcium (8.8-10.8) mg/dL Magnesium (1.5-2.3) mEq/L Total Bilirubin (0.1-1.5) mg/dL AST (5-40) IU/L ALT (8-54) IU/L Alkaline Phosphatase (40-150) Troponin I (0.0-0.29) NG/ML B-Natriuretic Peptide 2220 H (<100) PG/ML Total Protein (6.0-8.0) g/dL Albumin (3.4-4.8) g/dL Globulin (2.0-3.5) g/dL Albumin/Globulin Ratio (1.3-2.8) Blood Type O POSITIVE Antibody Screen NEGATIVE Meds: Medications Generic Name Dose Route Start Last Admin Trade Name Freq PRN Reason Stop Dose Admin Dopamine HCl/Dextrose 400 mg in 250 mls @ 15.309 mls/hr 07/03/17 16:30 16:31 Dopamine In D5w 400 Mg/250 Ml IV 5 mcg/kg/min TITRATE ANJALI 15.309 mls/hr Protocol Administration 5 MCG/KG/MIN Discontinued Medications Generic Name Dose Route Start Last Admin Trade Name Freq PRN Reason Stop Dose Admin Albuterol/Ipratropium 3 ml 07/03/17 16:06 07/03/17 16:12 Duoneb 3.0-0.5 Mg/3 Ml NEB 07/03/17 16:07 3 ml ONETIME ONE Administration Levofloxacin/Dextrose 500 mg/ 100 mls @ 100 mls/hr 07/03/17 16:28 07/03/17 16 :37 Premix IV 07/03/17 17:27 100 mls/hr ONETIME ONE Administration Departure - Departure Time of Disposition: 16:20 Disposition: DC/Tfer to Acute Hospital 02 Condition: Poor Clinical Impression: Sepsis - Discharge Information Referrals: PCP,None [Primary Care Provider] - Forms: ED Department Discharge - My Orders Last 24 Hours: My Active Orders 07/03/17 15:06 EKG Documentation Completion [RC] STAT Chest 1V Frontal [CR] Stat UA W/MICROSCOPIC [URIN] Stat 07/03/17 15:09 Blood Culture x2 Reflex Set [OM.PC] Stat 07/03/17 15:15 CULTURE BLOOD [BC] Stat 07/03/17 15:32 CULTURE BLOOD [BC] Stat 07/03/17 16:06 RT Aerosol Therapy [RC] ASDIRECTED - Assessment/Plan Last 24 Hours: My Active Orders 07/03/17 15:06 EKG Documentation Completion [RC] STAT Chest 1V Frontal [CR] Stat UA W/MICROSCOPIC [URIN] Stat 07/03/17 15:09 Blood Culture x2 Reflex Set [OM.PC] Stat 07/03/17 15:15 CULTURE BLOOD [BC] Stat 07/03/17 15:32 CULTURE BLOOD [BC] Stat 07/03/17 16:06 RT Aerosol Therapy [RC] ASDIRECTED
[2017-07-03 15:23] VITALS: BP 70/42
[2017-07-03] MEDS ORDERED: Sodium Chloride 0.9% 1,000 ML IV ONE ×3 (15:30→16:20)
[2017-07-03] MEDS ORDERED: Albuterol/Ipratropium 3.0-0.5 MG/3 ML Neb Soln NEB ONE (16:06)
[2017-07-03] MEDS ORDERED: Levofloxacin/Dextrose 5%-Water 500 MG in Premix Bag 1 BAG IV ONE (16:28)
[2017-07-03] MEDS ORDERED: DOPamine/Dextrose 5%-Water 400 MG/250 ML BAG IV SCH (16:30)
--- NOTE | 2017-07-05 18:09 | CR ---
EXAM DATE: 07/03/17 PATIENT'S AGE: 72 Patient: VICKI KEYES Facility: [place], [place] Site . Site : 1945 Study: XRay Chest [id number] 3:26:57 PM Ordering Physician: Doctor Sheffield Final Report: Pain shortness of breath Single -view chest x-ray.Findings: Cardiac mediastinal silhouette is mildly prominent. Aorta is mildly tortuous. Low lung volumes. Left hemidiaphragm is elevated. IMPRESSION: 1. No acute pulmonary process. Dictated by Vania Tello MD @ Jul 03 2017 3:50PM (Electronic Signature) Report Signed by Proxy. MANISH
== END 2017-07-03 17:00 ==
LOC: MW.ED 15:03
DX: A41.9 Sepsis, unspecified organism (principal); I10 Essential (primary) hypertension; E03.9 Hypothyroidism, unspecified; F17.210 Nicotine dependence, cigarettes, uncomplicated; Z88.0 Allergy status to penicillin
CPT/HCPCS: 36415; 71045; 80053; 81001; 83605; 83735; 83880; 84484; 85025; 86850; 86900; 86901; 87040; 87804; 93005; 94640; 96361; 96374; 99285; J1265; J1956; J7040; 87186; 99284